=== PATIENT | female | born 1980 | race Caucasian/White ===

== ENCOUNTER → 2016-08-10 | Outpatient (CLI) | payer MEDICAID ==
[2016-08-10 09:02] LABS: CHLORIDE,CL 105 mmol/L (98-110); SODIUM,NA 140 mmol/L (136-146)
== END ==
LOC: MW.CHIM 08:11
PROVIDERS: ATTEND Internal Medicine
DX: E11.9 Type 2 diabetes mellitus without complications (principal); E03.9 Hypothyroidism, unspecified; E78.5 Hyperlipidemia, unspecified
CPT/HCPCS: 36415; 80053; 83036; 84439; 84443

== ENCOUNTER 2016-09-06 10:59 | Emergency (ER) | payer MEDICAID ==
[2016-09-06 11:23] VITALS: BP 142/94
[2016-09-06] MEDS ORDERED: Sodium Chloride 0.9% 10 ML Syringe FLUSH PRN (11:25)
[2016-09-06] MEDS ORDERED: Sodium Chloride 0.9% 2.5 ML Syringe FLUSH PRN (11:25)
[2016-09-06] MEDS ORDERED: Sodium Chloride 0.9% 1,000 ML IV ONE (11:25)
[2016-09-06 12:15] LABS: CHLORIDE,CL 106 mmol/L (98-110); SODIUM,NA 142 mmol/L (136-146)
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
== END 2016-09-06 14:29 | disposition home or self-care (01) ==
LOC: MW.ED 10:59
DX: R40.4 Transient alteration of awareness (principal); J44.9 Chronic obstructive pulmonary disease, unspecified; E78.00 Pure hypercholesterolemia, unspecified; J45.909 Unspecified asthma, uncomplicated; Z79.899 Other long term (current) drug therapy
CPT/HCPCS: 36415; 80053; 80305; 81001; 81025; 82962; 84484; 85025; 93005; 96360; 99284; G0480; J7040

== ENCOUNTER 2016-10-27 06:01 | Emergency (ER) | payer MEDICAID ==
[2016-10-27] MEDS ORDERED: Sodium Chloride 0.9% 1,000 ML IV ONE (06:16)
--- NOTE | 2016-10-27 06:16 | EDM.PDOC ---
<Laz Cooney J - Last Filed: 10/27/16 06:12> ED HPI GENERAL MEDICAL PROBLEM - General Chief Complaint: Abdominal Pain Stated Complaint: ABDOMINAL PAIN AND LEG PAIN Time Seen by Provider: 10/27/16 06:07 - History of Present Illness INITIAL COMMENTS - FREE TEXT/NARRATIVE: HISTORY AND PHYSICAL: History of present illness: Patient is a 35-year-old female history of diabetes ,depression, and COPD who presents with a concern of left upper quadrant abdominal pain left anterior thigh pain 1 day she states she was drinking yesterday quite significantly she denies trauma denies fever chills vomiting she has mild chronic shortness of breath chronically related to her COPD denies history of DVT or pulmonary embolism patient denies history of pancreatitis or gallbladder disease Review of systems: As per history of present illness and below otherwise all systems reviewed and negative. Past medical history: As per history of present illness and as reviewed below otherwise noncontributory. Surgical history: As per history of present illness and as reviewed below otherwise noncontributory. Social history: No reported history of drug or alcohol abuse. Family history: As per history of present illness and as reviewed below otherwise noncontributory. Physical exam: HEENT: Atraumatic, normocephalic, pupils reactive, negative for conjunctival pallor or scleral icterus, mucous membranes moist, throat clear, neck supple, nontender, trachea midline. Lungs: Clear to auscultation, breath sounds equal bilaterally, chest nontender. Heart: S1S2, regular, negative for clicks, rubs, or JVD. Abdomen: Soft, nondistended, no localized tenderness. Negative for masses or hepatosplenomegaly. Negative for costovertebral tenderness. Pelvis: Stable nontender. Genitourinary: Deferred. Rectal: Deferred. Extremities: Atraumatic, negative for cords or calf pain. Neurovascular unremarkable. Neuro: Awake, alert, oriented. Cranial nerves II through XII unremarkable. Cerebellum unremarkable. Motor and sensory unremarkable throughout. Exam nonfocal. Diagnostics: CBC CMP PT/INR troponin lipase UA chest x-ray EKG x-ray left femur Therapeutics: IV O2 monitor Impression: #1 abdominal pain #2 COPD #3 history diabetes #4 history of depression Definitive disposition and diagnosis as appropriate pending reevaluation and review of above. Left Upper Abdomen Pain Score (Numeric/FACES): 5 - Related Data Allergies Allergy/AdvReac Type Severity Reaction Status Date / Time piperacillin sodium AdvReac Nausea and Verified 10/27/16 06:07 [From Zosyn] Vomiting tazobactam sodium AdvReac Nausea and Verified 10/27/16 06:07 [From Zosyn] Vomiting Home Meds: Home Meds Albuterol [Proair HFA] 2 puff INH Q4HR PRN 10/30/13 [History] Enalapril Maleate [Vasotec] 5 mg PO DAILY 10/30/13 [History] Furosemide [Lasix] 20 mg PO DAILY 10/30/13 [History] Gabapentin [Neurontin] 300 mg PO BID 10/30/13 [History] atorvaSTATin [Lipitor] 10 mg PO BEDTIME 10/30/13 [History] Tiotropium Frederick [Spiriva Respimat] 2 inh IH BID 01/23/15 [History] metFORMIN [Glucophage] 1,000 mg PO BIDMEALS 03/01/15 [History] Citalopram [Celexa] 60 mg PO DAILY 10/13/15 [History] Levothyroxine Sodium [Synthroid] 200 mcg PO ACBREAKFAST 10/14/15 [History] Fenofibrate 40 mg PO DAILY 05/12/16 [History] Potassium Chloride 10 meq PO DAILY 05/12/16 [History] Omeprazole 20 mg PO DAILY 09/06/16 [History] Past Medical History HEENT History: Reports: None Cardiovascular History: Reports: High Cholesterol Respiratory History: Reports: Asthma, COPD, Pneumonia, Recurrent, Sleep Apnea, Other (See Below) Other Respiratory History: uses CPAP at home Gastrointestinal History: Reports: GERD Genitourinary History: Reports: None, UTI, Recurrent [employer] History: Reports: None Musculoskeletal History: Reports: Arthritis Neurological History: Reports: None Psychiatric History: Reports: Anxiety, Depression, Suicide Attempt Other Psychiatric History: in [place] for previous suicidal attempt 2 yrs ago Endocrine/Metabolic History: Reports: Diabetes, Type II, Hypothyroidism, Obesity /BMI 30+ Hematologic History: Reports: None Immunologic History: Reports: None Oncologic (Cancer) History: Reports: None Dermatologic History: Reports: Cellulitis, Other (See Below) Other Dermatologic History: skin abcess/infections - Infectious Disease History Infectious Disease History: Reports: Chicken Pox, Shingles - Past Surgical History Head Surgeries/Procedures: Reports: None HEENT Surgical History: Reports: Adenoidectomy, Tonsillectomy GI Surgical History: Reports: Cholecystectomy Musculoskeletal Surgical History: Reports: None Social & Family History - Family History Family Medical History: Noncontributory Cardiac: Reports: High Cholesterol, Other (See Below) Other Cardiac Family History: heart attack Respiratory: Reports: Asthma, COPD GI: Reports: None : Reports: None OBGYN: Reports: Musculoskeletal: Reports: Arthritis Neurological: Reports: Alzheimers Disease, CVA Psychiatric: Reports: Anxiety, Depression, Panic Attack Endocrine/Metabolic: Reports: Diabetes, Type I, Diabetes, type II Oncologic: Reports: Pancreatic - Tobacco Use Smoking Status *Q: Current Every Day Smoker Years of Tobacco use: 23 Packs/Tins Daily: 1 Used Tobacco, but Quit: No Second Hand Smoke Exposure: No - Caffeine Use Caffeine Use: Reports: Tea - Alcohol Use Days Per Week of Alcohol Use: 0 Number of Drinks Per Day: 10 Total Drinks Per Week: 0 - Recreational Drug Use Recreational Drug Use: Yes Drug Use in Last 12 Months: No Recreational Drug Type: Reports: Other (see below) Other Recreational Drug Type: edible marijuana Recreational Drug Use Frequency: Socially ED ROS GENERAL - Review of Systems Review Of Systems: ROS reveals no pertinent complaints other than HPI. ED EXAM, GENERAL - Physical Exam Exam: See Below (See dictation) Course - Vital Signs Last Recorded V/S: Last Vital Signs Temp 35.7 C 10/27/16 06:07 Pulse 95 10/27/16 06:07 Resp 18 10/27/16 06:07 BP 147/78 H 10/27/16 06:07 Pulse Ox 95 10/27/16 06:07 - Orders/Labs/Meds Orders: Active Orders 24 hr Category Date Time Status EKG Documentation Completion [RC] STAT Care 10/27/16 06:12 Active Abdomen Pelvis wo Cont [CT] Stat Exams 10/27/16 06:16 Taken Chest 1V Frontal [CR] Stat Exams 10/27/16 06:12 Taken Femur Min 2V Lt [CR] Stat Exams 10/27/16 06:12 Taken Labs: Laboratory Tests 10/27/16 10/27/16 10/27/16 Range/Units 06:31 06:31 06:31 WBC 9.38 (4.0-11.0) K/uL RBC 4.41 (4.30-5.90) M/uL Hgb 12.9 (12.0-16.0) g/dL Hct 39.2 (36.0-46.0) % MCV 88.9 (80.0-98.0) fL MCH 29.3 (27.0-32.0) pg MCHC 32.9 (31.0-37.0) g/dL RDW Std Deviation 44.6 (28.0-62.0) fl RDW Coeff of [place] 14 (11.0-15.0) % Plt Count 171 (150-400) K/uL MPV 13.00 H (7.40-12.00) fL Neut % (Auto) 64.2 (48.0-80.0) % Lymph % (Auto) 26.8 (16.0-40.0) % Waldo % (Auto) 6.7 (0.0-15.0) % Eos % (Auto) 2.0 (0.0-7.0) % Baso % (Auto) 0.3 (0.0-1.5) % Neut # (Auto) 6.0 H (1.4-5.7) K/uL Lymph # (Auto) 2.5 H (0.6-2.4) K/uL Waldo # (Auto) 0.6 (0.0-0.8) K/uL Eos # (Auto) 0.2 (0.0-0.7) K/uL Baso # (Auto) 0.0 (0.0-0.1) K/uL Nucleated RBC % 0.0 /100WBC Nucleated RBCs # 0 K/uL Sodium 138 (136-146) mmol/L Potassium 4.5 (3.5-5.1) mmol/L Chloride 106 (98-110) mmol/L Carbon Dioxide 21 (21-31) mmol/L BUN 9 (6.0-23.0) mg/dL Creatinine 0.9 (0.6-1.5) mg/dL Est Cr Clr Drug Dosing 62.67 mL/min Estimated GFR (MDRD) > 60.0 ml/min Glucose 198 H (60-110) mg/dL Calcium 8.9 (8.8-10.8) mg/dL Total Bilirubin 0.4 (0.1-1.5) mg/dL AST 26 (5-40) IU/L ALT 34 (8-54) IU/L Alkaline Phosphatase 53 (40-150) CK-MB (CK-2) 0.9 (0-6.6) ng/ml Troponin I < 0.10 (0.0-0.29) NG/ML Total Protein 7.0 (6.0-8.0) g/dL Albumin 4.2 (3.5-5.0) g/dL Globulin 2.8 (2.0-3.5) g/dL Albumin/Globulin Ratio 1.5 (1.3-2.8) Lipase 53 (7-80) U/L HCG, Qual (NEG) Urine Color Urine Appearance Urine pH (5.0-8.0) Ur Specific [place] (1.001-1.035) Urine Protein (NEGATIVE) mg/dL Urine Glucose (UA) (NEGATIVE) mg/dL Urine Ketones (NEGATIVE) mg/dL Urine Occult Blood (NEGATIVE) Urine Nitrite (NEGATIVE) Urine Bilirubin (NEGATIVE) Urine Urobilinogen (<2.0) EU/dL Ur Leukocyte Esterase (NEGATIVE) Urine RBC (0-2/HPF) Urine WBC (0-5/HPF) Ur Epithelial Cells (NONE-FEW) Urine Bacteria (NEGATIVE) Urine Yeast 10/27/16 10/27/16 Range/Units 06:31 07:46 WBC (4.0-11.0) K/uL RBC (4.30-5.90) M/uL Hgb (12.0-16.0) g/dL Hct (36.0-46.0) % MCV (80.0-98.0) fL MCH (27.0-32.0) pg MCHC (31.0-37.0) g/dL RDW Std Deviation (28.0-62.0) fl RDW Coeff of [place] (11.0-15.0) % Plt Count (150-400) K/uL MPV (7.40-12.00) fL Neut % (Auto) (48.0-80.0) % Lymph % (Auto) (16.0-40.0) % Waldo % (Auto) (0.0-15.0) % Eos % (Auto) (0.0-7.0) % Baso % (Auto) (0.0-1.5) % Neut # (Auto) (1.4-5.7) K/uL Lymph # (Auto) (0.6-2.4) K/uL Wal[place] # (Auto) (0.0-0.8) K/uL Eos # (Auto) (0.0-0.7) K/uL Baso # (Auto) (0.0-0.1) K/uL Nucleated RBC % /100WBC Nucleated RBCs # K/uL Sodium (136-146) mmol/L Potassium (3.5-5.1) mmol/L Chloride (98-110) mmol/L Carbon Dioxide (21-31) mmol/L BUN (6.0-23.0) mg/dL Creatinine (0.6-1.5) mg/dL Est Cr Clr Drug Dosing mL/min Estimated GFR (MDRD) ml/min Glucose (60-110) mg/dL Calcium (8.8-10.8) mg/dL Total Bilirubin (0.1-1.5) mg/dL AST (5-40) IU/L ALT (8-54) IU/L Alkaline Phosphatase (40-150) CK-MB (CK-2) (0-6.6) ng/ml Troponin I (0.0-0.29) NG/ML Total Protein (6.0-8.0) g/dL Albumin (3.5-5.0) g/dL Globulin (2.0-3.5) g/dL Albumin/Globulin Ratio (1.3-2.8) Lipase (7-80) U/L HCG, Qual NEGATIVE (NEG) Urine Color YELLOW Urine Appearance CLEAR Urine pH 5.0 (5.0-8.0) Ur Specific [place] 1.015 (1.001-1.035) Urine Protein NEGATIVE (NEGATIVE) mg/dL Urine Glucose (UA) >=1000 (NEGATIVE) mg/dL Urine Ketones NEGATIVE (NEGATIVE) mg/dL Urine Occult Blood NEGATIVE (NEGATIVE) Urine Nitrite NEGATIVE (NEGATIVE) Urine Bilirubin NEGATIVE (NEGATIVE) Urine Urobilinogen 0.2 (<2.0) EU/dL Ur Leukocyte Esterase NEGATIVE (NEGATIVE) Urine RBC NONE SEEN (0-2/HPF) Urine WBC 2-4 (0-5/HPF) Ur Epithelial Cells MODERATE (NONE-FEW) Urine Bacteria FEW (NEGATIVE) Urine Yeast MODERATE Meds: Medications Discontinued Medications Generic Name Dose Route Start Last Admin Trade Name Ingrid PRN Reason Stop Dose Admin Sodium Chloride 1,000 mls @ 999 mls/hr 10/27/16 06:16 10/27/16 06:23 Normal Saline IV 10/27/16 07:16 999 mls/hr STAT ONE Administration Departure - Departure Disposition: Home, Self-Care 01 Clinical Impression: Alcoholic gastritis Qualifiers: Chronicity: chronic Gastritis bleeding: without bleeding Qualified Code(s): K29.20 - Alcoholic gastritis without bleeding - Discharge Information Forms: ED Department Discharge Additional Instructions: The following information is given to patients seen in the emergency department who are being discharged to home. This information is to outline your options for follow-up care. We provide all patients seen in our emergency department with a follow-up referral. The need for follow-up, as well as the timing and circumstances, are variable depending upon the specifics of your emergency department visit. If you don't have a primary care physician on staff, we will provide you with a referral. We always advise you to contact your personal physician following an emergency department visit to inform them of the circumstance of the visit and for follow-up with them and/or the need for any referrals to a consulting specialist. The emergency department will also refer you to a specialist when appropriate. This referral assures that you have the opportunity for follow-up care with a specialist. All of these measure are taken in an effort to provide you with optimal care, which includes your follow-up. Under all circumstances we always encourage you to contact your private physician who remains a resource for coordinating your care. When calling for follow-up care, please make the office aware that this follow-up is from your recent emergency room visit. If for any reason you are refused follow-up, please contact the [facility] Emergency Department at and asked to speak to the emergency department charge nurse. Stop drinking alcohol. Take Prilosec twice a day. Followup with your primary care physician. [facility] [address] [place] [id number] <Leila Kwon - Last Filed: 10/27/16 08:17> ED HPI GENERAL MEDICAL PROBLEM - History of Present Illness INITIAL COMMENTS - FREE TEXT/NARRATIVE: This patient was signed out to me by Dr. Cooney from the assembler 1st shift. Patient's abdominal CT, chest x-ray and left extremity x-ray are all negative. Patient's urine shows moderate yeast, however she is asymptomatic. Patient states she drinks heavily in the evening and her pain is in her epigastrium and lower pelvis. She has a chronic left ovarian cyst that appears to be unchanged without signs of rupture on CT. This may be the cause of her lower abdominal pain. Patient is to continue take Prilosec twice a day. I strongly urged her to stop drinking alcohol. Patient to followup with her primary care physician or to return here if symptoms change or worsen. She remained stable while in the ED. Departure - Departure Time of Disposition: 08:12 Condition: good
[2016-10-27 07:05] LABS: CHLORIDE,CL 106 mmol/L (98-110); SODIUM,NA 138 mmol/L (136-146)
[2016-10-27 08:34] VITALS: BP 121/56
--- NOTE | 2016-10-27 10:51 | CR ---
EXAM DATE: 10/27/16 PATIENT'S AGE: 35 Patient: DOMONIQUE ELIZABETH Facility: [place], [place] Site . Site : 1980 Study: XRay Chest [id number]/7/2017 7:30:33 AM Ordering Physician: Eros Nesbitt Final Report: INDICATION: Pain COMPARISON: none TECHNIQUE: PA chest performed at 7:11 a.m. FINDINGS: The lungs are clear. There is no evidence of pneumothorax. The heart, mediastinum and pulmonary vessels are of normal size. There is no evidence of pleural fluid. IMPRESSION: Negative chest. Dictated by Laz Crews MD @ Oct 27 2016 7:33AM (Electronic Signature) Report Signed by Proxy. MARIAN
--- NOTE | 2016-10-27 10:51 | CT ---
EXAM DATE: 10/27/16 PATIENT'S AGE: 35 Patient: DOMONIQUE ELIZABETH Facility: [place], [place] Site . Site : 1980 Study: CT Abdomen/Pelvis [id number]/7/2017 7:17:31 AM Ordering Physician: Eros Nesbitt Final Report: Indication: Right-sided abdominal pain. Technique: A CT volumetric acquisition was performed of the abdomen and pelvis without IV contrast. Findings: CT images demonstrate a normal appearance of the lung bases. There is no evidence of pleural or pericardial fluid. Within the abdomen there is generalized hepatic steatosis. Gallbladder has been resected. The bile ducts are normal size. There is no evidence of mass effect or inflammation within the pancreas or stomach. The spleen appears normal. The adrenal glands have normal morphology. The kidneys are symmetric in size and there is no evidence a calculus, mass or hydronephrosis. The appendix is visualized in the lower right abdomen and appears normal. There is no evidence of inflammation or obstruction within the small intestine. The small bowel mesentery and greater omentum appear normal. No abnormalities are noted within the colon. The uterus and right ovary appear normal. The left ovary is enlarged and has decreased density. It measures approximately 5.4 x 4.9 cm in size. There is no evidence of free fluid in the cul de sac. Urinary bladder appears normal. Impression: 1. Cystic enlargement of the left ovary. This could be investigated further with a focused ultrasound. 2. No evidence of appendicitis. 3. Generalized hepatic steatosis. Please note that all CT scans at this facility use dose modulation, iterative reconstruction, and/or weight-based dosing when appropriate to reduce radiation dose to as low as reasonably achievable. Dictated by Laz Crews MD @ Oct 27 2016 7:20AM (Electronic Signature) Report Signed by Proxy. [facility]ITAL[facility]
--- NOTE | 2016-10-27 10:52 | CR ---
EXAM DATE: 10/27/16 PATIENT'S AGE: 35 Patient: DOMONIQUE ELIZABETH Facility: [place], [place] Site . Site : 1980 Study: XRay Extremity Left [id number]/7/[id number] 7:31:33 AM Ordering Physician: Eros Nesbitt Final Report: INDICATION: Acute swelling of distal left femur COMPARISON: none TECHNIQUE: Two-view left femur FINDINGS: The left hip and knee are anatomically aligned. There is no evidence of femoral fracture, erosion or intrinsic bone lesion. The soft tissues appear normal. IMPRESSION: Negative left femur. Dictated by Laz Crews MD @ Oct 27 2016 7:34AM (Electronic Signature) Report Signed by Proxy. MARIAN
== END 2016-10-27 08:32 | disposition home or self-care (01) ==
LOC: MW.ED 06:01
DX: K29.20 Alcoholic gastritis without bleeding (principal); F17.210 Nicotine dependence, cigarettes, uncomplicated; E78.00 Pure hypercholesterolemia, unspecified; J45.909 Unspecified asthma, uncomplicated; J44.9 Chronic obstructive pulmonary disease, unspecified; G47.30 Sleep apnea, unspecified; K21.9 Gastro-esophageal reflux disease without esophagitis; F41.9 Anxiety disorder, unspecified; F32.9 Major depressive disorder, single episode, unspecified; E11.9 Type 2 diabetes mellitus without complications; E03.9 Hypothyroidism, unspecified; E66.9 Obesity, unspecified; Z98.890 Other specified postprocedural states; Z90.49 Acquired absence of other specified parts of digestive tract; Z79.899 Other long term (current) drug therapy; Z79.84 Long term (current) use of oral hypoglycemic drugs; Z88.8 Allergy status to other drugs, medicaments and biological substances
CPT/HCPCS: 36415; 71010; 73552; 74176; 80053; 81001; 82553; 83690; 84484; 84703; 85025; 93005; 96360; 96361; 99284; J7040

== ENCOUNTER 2016-12-31 01:52 | Emergency (ER) | payer MEDICAID ==
[2016-12-31] MEDS ORDERED: Ondansetron 4 MG Tab.DIS PO ONE (02:25)
--- NOTE | 2016-12-31 02:31 | EDM.PDOC ---
ED HPI GENERAL MEDICAL PROBLEM - General Chief Complaint: Behavioral/Psych Stated Complaint: VOMITING Time Seen by Provider: 12/31/16 02:15 - History of Present Illness INITIAL COMMENTS - FREE TEXT/NARRATIVE: HISTORY AND PHYSICAL: History of present illness: The patient is a 36 rolled female with a history of hypertension depression hypercholesterolemia and diabetes as well as morbid obesity who has had multiple problems with depression and suicidal ideation and presents with her friend, who used to be her counselor, as well as police because at approximately 1:03 AM she took 10-15 tablets of her enalapril 5 mg. Patient says she was angry and sad and she had had a significant amount of alcohol this evening and took the pills and then text at her friend. Her friend contacted the police and the 2 of them brought her here. The patient currently feels nauseated but has no chest pain lightheadedness or dizziness no abdominal pain or shortness of breath. Prior to the events of this evening she had no systemic complaints but she has been battling depression for quite some time. The friend who knows her from counseling initially and then became her friend thinks that she also has a history of alcoholism as well as the significant depression. The patient tries to tell me that she doesn't want to but when I question her on taking all of the blood pressure medication she realizes and becomes tearful that this gesture was intentional and subsequently admits to that. She denies any other coingestions and is on other medications declines that she took any of those. She also denies drug use. The patient also tells me that she has "left -sided upper abdominal pain" which is chronic and she has a ready discussed that with her provider in the clinic. SHe says there is nothing new or different about this discomfort is occurring this evening Review of systems: As per history of present illness and below otherwise all systems reviewed and negative. Past medical history: As per history of present illness and as reviewed below otherwise noncontributory. Surgical history: As per history of present illness and as reviewed below otherwise noncontributory. Social history: No reported history of drug or alcohol abuse. Family history: As per history of present illness and as reviewed below otherwise noncontributory. Physical exam: Gen.: Well-developed obese female who is nontoxic and intermittently tearful when questioned. Vital signs are noted by me HEENT: Atraumatic, normocephalic, pupils reactive, clear are slightly injected, negative for conjunctival pallor or scleral icterus, mucous membranes moist, throat clear, neck supple, nontender, trachea midline. Lungs: Clear to auscultation, breath sounds equal bilaterally, chest nontender. Heart: S1S2, regular rate and rhythm no overt murmurs Abdomen: Soft, nondistended, nontender. Negative for masses or hepatosplenomegaly. Negative for costovertebral tenderness. Pelvis: Stable nontender. Genitourinary: Deferred. Rectal: Deferred. Extremities: Atraumatic, negative for cords or calf pain. Neurovascular unremarkable. Full range of motion without any defects or deficits Neuro: Awake, alert, oriented. Cranial nerves II through XII unremarkable. Cerebellum unremarkable. Motor and sensory unremarkable throughout. Exam nonfocal. Diagnostics: EKG CBC CMP Tylenol and aspirin levels alcohol level TSH UA UDS UCG magnesium level Therapeutics: Blood pressure monitoring, Zofran for her nausea 0212: Poison control was contacted by nursing and states that she needs to be observed for hypotension and that the peak effect is a proximally 4 hours postingestion which according to her timing would be approximately 5 AM. 0318: Case was discussed with Dr. Manzano, the psychiatrist at [facility] who accept the patient for transfer. There were no beds available at [facility]. He is aware of poison control's recommendations and I have discussed this transfer with the patient and her friend at bedside. I told the patient that we would need to place a saline lock in case something happened with her blood pressure in route so the paramedics could give her IV fluids and she is agreeable. I will also instruct the paramedics to monitor her blood pressure closely in route especially around the 5 am swati. On KARLA has been filled out Impression: Suicide attempt with intentional overdose of enalapril Definitive disposition and diagnosis as appropriate pending reevaluation and review of above. - Related Data Allergies Allergy/AdvReac Type Severity Reaction Status Date / Time piperacillin sodium AdvReac Nausea and Verified 12/31/16 01:57 [From Zosyn] Vomiting tazobactam sodium AdvReac Nausea and Verified 12/31/16 01:57 [From Zosyn] Vomiting Home Meds: Home Meds Albuterol [Proair HFA] 2 puff INH Q4HR PRN 10/30/13 [History] Enalapril Maleate [Vasotec] 5 mg PO DAILY 10/30/13 [History] Furosemide [Lasix] 20 mg PO DAILY 10/30/13 [History] Gabapentin [Neurontin] 300 mg PO ASDIRECTED 10/30/13 [History] atorvaSTATin [Lipitor] 10 mg PO BEDTIME 10/30/13 [History] Tiotropium [place] [Spiriva Respimat] 2 inh IH BID 01/23/15 [History] metFORMIN [Glucophage] 1,000 mg PO BIDMEALS 03/01/15 [History] Citalopram [Celexa] 60 mg PO DAILY 10/13/15 [History] Levothyroxine Sodium [Synthroid] 200 mcg PO ACBREAKFAST 10/14/15 [History] Fenofibrate 40 mg PO DAILY 05/12/16 [History] Potassium Chloride 10 meq PO DAILY 05/12/16 [History] Omeprazole 20 mg PO DAILY 09/06/16 [History] Glimepiride 1 mg PO ASDIRECTED 12/31/16 [History] Past Medical History HEENT History: Reports: None Cardiovascular History: Reports: High Cholesterol Respiratory History: Reports: Asthma, COPD, Pneumonia, Recurrent, Sleep Apnea, Other (See Below) Other Respiratory History: uses CPAP at home Gastrointestinal History: Reports: GERD Genitourinary History: Reports: None, UTI, Recurrent 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 Musculoskeletal History: Reports: Arthritis Neurological History: Reports: None Psychiatric History: Reports: Anxiety, Depression, Suicide Attempt Other Psychiatric History: in [place] for previous suicidal attempt 2 yrs ago Endocrine/Metabolic History: Reports: Diabetes, Type II, Hypothyroidism, Obesity /BMI 30+ Hematologic History: Reports: None Immunologic History: Reports: None Oncologic (Cancer) History: Reports: None Dermatologic History: Reports: Cellulitis, Other (See Below) Other Dermatologic History: skin abcess/infections - Infectious Disease History Infectious Disease History: Reports: Chicken Pox, Shingles - Past Surgical History Head Surgeries/Procedures: Reports: None HEENT Surgical History: Reports: Adenoidectomy, Tonsillectomy GI Surgical History: Reports: Cholecystectomy Musculoskeletal Surgical History: Reports: None Social & Family History - Family History Family Medical History: Noncontributory Cardiac: Reports: High Cholesterol, Other (See Below) Other Cardiac Family History: heart attack Respiratory: Reports: Asthma, COPD GI: Reports: None : Reports: None OBGYN: Reports: Musculoskeletal: Reports: Arthritis Neurological: Reports: Alzheimers Disease, CVA Psychiatric: Reports: Anxiety, Depression, Panic Attack Endocrine/Metabolic: Reports: Diabetes, Type I, Diabetes, type II Oncologic: Reports: Pancreatic - Tobacco Use Smoking Status *Q: Current Every Day Smoker Years of Tobacco use: 23 Packs/Tins Daily: 1 Used Tobacco, but Quit: No Second Hand Smoke Exposure: No - Caffeine Use Caffeine Use: Reports: Tea - Alcohol Use Days Per Week of Alcohol Use: 0 Number of Drinks Per Day: 10 Total Drinks Per Week: 0 - Recreational Drug Use Recreational Drug Use: Yes Drug Use in Last 12 Months: No Recreational Drug Type: Reports: Other (see below) Other Recreational Drug Type: edible marijuana Recreational Drug Use Frequency: Socially ED ROS GENERAL - Review of Systems Review Of Systems: ROS reveals no pertinent complaints other than HPI. ED EXAM, GENERAL - Physical Exam Exam: See Below (See dictation) Course - Vital Signs Last Recorded V/S: Last Vital Signs Temp 36.6 C 12/31/16 01:52 Pulse 121 H 12/31/16 01:52 Resp 20 12/31/16 01:52 BP 130/76 12/31/16 01:52 Pulse Ox 95 12/31/16 03:12 - Orders/Labs/Meds Orders: Active Orders 24 hr Category Date Time Status Cardiac Monitoring [RC] . DIRECTED Care 12/31/16 02:24 Active EKG Documentation Completion [RC] STAT Care 12/31/16 02:24 Active Oxygen Therapy, ED [RC] ASDIRECTED Care 12/31/16 02:24 Active Pulse Oximetry [RC] ASDIRECTED Care 12/31/16 02:24 Active Labs: Laboratory Tests 12/31/16 12/31/16 12/31/16 Range/Units 02:30 02:30 02:30 WBC (4.0-11.0) K/uL RBC (4.30-5.90) M/uL Hgb (12.0-16.0) g/dL Hct (36.0-46.0) % MCV (80.0-98.0) fL MCH (27.0-32.0) pg MCHC (31.0-37.0) g/dL RDW Std Deviation (28.0-62.0) fl RDW Coeff of [place] (11.0-15.0) % Plt Count (150-400) K/uL MPV (7.40-12.00) fL Neut % (Auto) (48.0-80.0) % Lymph % (Auto) (16.0-40.0) % [place] % (Auto) (0.0-15.0) % Eos % (Auto) (0.0-7.0) % Baso % (Auto) (0.0-1.5) % Neut # (Auto) (1.4-5.7) K/uL Lymph # (Auto) (0.6-2.4) K/uL [place] # (Auto) (0.0-0.8) K/uL Eos # (Auto) (0.0-0.7) K/uL Baso # (Auto) (0.0-0.1) K/uL Nucleated RBC % /100WBC Nucleated RBCs # K/uL Sodium (136-146) mmol/L Potassium (3.5-5.1) mmol/L Chloride (98-110) mmol/L Carbon Dioxide (21-31) mmol/L BUN (6.0-23.0) mg/dL Creatinine (0.6-1.5) mg/dL Est Cr Clr Drug Dosing mL/min Estimated GFR (MDRD) ml/min Glucose (60-110) mg/dL Calcium (8.8-10.8) mg/dL Magnesium (1.5-2.3) mEq/L Total Bilirubin (0.1-1.5) mg/dL AST (5-40) IU/L ALT (8-54) IU/L Alkaline Phosphatase (40-150) Total Protein (6.0-8.0) g/dL Albumin (3.5-5.0) g/dL Globulin (2.0-3.5) g/dL Albumin/Globulin Ratio (1.3-2.8) TSH 3rd Generation (0.47-5.0) uIU/mL Urine Color YELLOW Urine Appearance CLEAR Urine pH 5.5 (5.0-8.0) Ur Specific [place] 1.010 (1.001-1.035) Urine Protein NEGATIVE (NEGATIVE) mg/dL Urine Glucose (UA) >=1000 (NEGATIVE) mg/dL Urine Ketones NEGATIVE (NEGATIVE) mg/dL Urine Occult Blood NEGATIVE (NEGATIVE) Urine Nitrite NEGATIVE (NEGATIVE) Urine Bilirubin NEGATIVE (NEGATIVE) Urine Urobilinogen 0.2 (<2.0) EU/dL Ur Leukocyte Esterase NEGATIVE (NEGATIVE) Urine RBC 0-1 (0-2/HPF) Urine WBC 0-2 (0-5/HPF) Ur Epithelial Cells FEW (NONE-FEW) Urine Bacteria RARE (NEGATIVE) Urine HCG, Qual NEGATIVE (NEGATIVE) Salicylates (0-20) mg/dL Urine Opiates Screen NEGATIVE (NEGATIVE) Ur Oxycodone Screen NEGATIVE (NEGATIVE) Urine Methadone Screen NEGATIVE (NEGATIVE) Acetaminophen ug/mL Ur Barbiturates Screen NEGATIVE (NEGATIVE) Ur Phencyclidine Scrn NEGATIVE (NEGATIVE) Ur Amphetamine Screen NEGATIVE (NEGATIVE) U Methamphetamines Scrn NEGATIVE (NEGATIVE) U Benzodiazepines Scrn NEGATIVE (NEGATIVE) U Cocaine Metab Screen NEGATIVE (NEGATIVE) U Marijuana (THC) Screen NEGATIVE (NEGATIVE) Ethyl Alcohol mg/dL 12/31/16 12/31/16 Range/Units 02:35 02:35 WBC 9.36 (4.0-11.0) K/uL RBC 4.61 (4.30-5.90) M/uL Hgb 13.3 (12.0-16.0) g/dL Hct 39.9 (36.0-46.0) % MCV 86.6 (80.0-98.0) fL MCH 28.9 (27.0-32.0) pg MCHC 33.3 (31.0-37.0) g/dL RDW Std Deviation 43.8 (28.0-62.0) fl RDW Coeff of [place] 14 (11.0-15.0) % Plt Count 172 (150-400) K/uL MPV 12.20 H (7.40-12.00) fL Neut % (Auto) 70.6 (48.0-80.0) % Lymph % (Auto) 23.2 (16.0-40.0) % [place] % (Auto) 5.0 (0.0-15.0) % Eos % (Auto) 1.0 (0.0-7.0) % Baso % (Auto) 0.2 (0.0-1.5) % Neut # (Auto) 6.6 H (1.4-5.7) K/uL Lymph # (Auto) 2.2 (0.6-2.4) K/uL [place] # (Auto) 0.5 (0.0-0.8) K/uL Eos # (Auto) 0.1 (0.0-0.7) K/uL Baso # (Auto) 0.0 (0.0-0.1) K/uL Nucleated RBC % 0.0 /100WBC Nucleated RBCs # 0 K/uL Sodium 141 (136-146) mmol/L Potassium 3.8 (3.5-5.1) mmol/L Chloride 106 (98-110) mmol/L Carbon Dioxide 19 L (21-31) mmol/L BUN 7 (6.0-23.0) mg/dL Creatinine 0.9 (0.6-1.5) mg/dL Est Cr Clr Drug Dosing 62.07 mL/min Estimated GFR (MDRD) > 60.0 ml/min Glucose 183 H (60-110) mg/dL Calcium 9.6 (8.8-10.8) mg/dL Magnesium 1.9 (1.5-2.3) mEq/L Total Bilirubin 0.3 (0.1-1.5) mg/dL AST 77 H (5-40) IU/L ALT 130 H (8-54) IU/L Alkaline Phosphatase 78 (40-150) Total Protein 7.8 (6.0-8.0) g/dL Albumin 4.5 (3.5-5.0) g/dL Globulin 3.3 (2.0-3.5) g/dL Albumin/Globulin Ratio 1.4 (1.3-2.8) TSH 3rd Generation 3.20 (0.47-5.0) uIU/mL Urine Color Urine Appearance Urine pH (5.0-8.0) Ur Specific [place] (1.001-1.035) Urine Protein (NEGATIVE) mg/dL Urine Glucose (UA) (NEGATIVE) mg/dL Urine Ketones (NEGATIVE) mg/dL Urine Occult Blood (NEGATIVE) Urine Nitrite (NEGATIVE) Urine Bilirubin (NEGATIVE) Urine Urobilinogen (<2.0) EU/dL Ur Leukocyte Esterase (NEGATIVE) Urine RBC (0-2/HPF) Urine WBC (0-5/HPF) Ur Epithelial Cells (NONE-FEW) Urine Bacteria (NEGATIVE) Urine HCG, Qual (NEGATIVE) Salicylates < 5.0 (0-20) mg/dL Urine Opiates Screen (NEGATIVE) Ur Oxycodone Screen (NEGATIVE) Urine Methadone Screen (NEGATIVE) Acetaminophen < 3.0 ug/mL Ur Barbiturates Screen (NEGATIVE) Ur Phencyclidine Scrn (NEGATIVE) Ur Amphetamine Screen (NEGATIVE) U Methamphetamines Scrn (NEGATIVE) U Benzodiazepines Scrn (NEGATIVE) U Cocaine Metab Screen (NEGATIVE) U Marijuana (THC) Screen (NEGATIVE) Ethyl Alcohol 118.3 mg/dL Meds: Medications Discontinued Medications Generic Name Dose Route Start Last Admin Trade Name Freq PRN Reason Stop Dose Admin Ondansetron HCl 4 mg 12/31/16 02:25 12/31/16 02:34 Zofran Odt PO 12/31/16 02:26 4 mg ONETIME ONE Administration Departure - Departure Time of Disposition: 03:29 Disposition: DC/Tfer to Psych Hosp/Unit 65 Condition: Good Clinical Impression: Depressive disorder Overdose Qualifiers: Encounter type: initial encounter Injury intent: intentional self-harm Qualified Code(s): T50.902A - Poisoning by unspecified drugs, medicaments and biological substances, intentional self-harm, initial encounter - Discharge Information Forms: ED Department Discharge - My Orders Last 24 Hours: My Active Orders 12/31/16 02:24 Cardiac Monitoring [RC] . DIRECTED EKG Documentation Completion [RC] STAT Oxygen Therapy, ED [RC] ASDIRECTED Pulse Oximetry [RC] ASDIRECTED - Assessment/Plan Last 24 Hours: My Active Orders 12/31/16 02:24 Cardiac Monitoring [RC] . DIRECTED EKG Documentation Completion [RC] STAT Oxygen Therapy, ED [RC] ASDIRECTED Pulse Oximetry [RC] ASDIRECTED
[2016-12-31 03:04] LABS: CHLORIDE,CL 106 mmol/L (98-110); SODIUM,NA 141 mmol/L (136-146)
[2016-12-31 03:08] LABS: ACETAMINOPHEN < 3.0 ug/mL
[2016-12-31] MEDS ORDERED: Sodium Chloride 0.9% 2.5 ML Syringe FLUSH PRN (03:30)
[2016-12-31] MEDS ORDERED: Sodium Chloride 0.9% 10 ML Syringe FLUSH PRN (03:30)
[2016-12-31 04:48] VITALS: BP 140/72
== END 2016-12-31 04:10 ==
LOC: MW.ED 01:52
DX: T46.4X2A Poisoning by angiotensin-converting-enzyme inhibitors, intentional self-harm, initial encounter (principal); F32.9 Major depressive disorder, single episode, unspecified; I10 Essential (primary) hypertension; E78.00 Pure hypercholesterolemia, unspecified; E11.9 Type 2 diabetes mellitus without complications; E66.01 Morbid (severe) obesity due to excess calories; J45.909 Unspecified asthma, uncomplicated; J44.9 Chronic obstructive pulmonary disease, unspecified; F17.210 Nicotine dependence, cigarettes, uncomplicated; E03.9 Hypothyroidism, unspecified; Z98.890 Other specified postprocedural states; Z87.01 Personal history of pneumonia (recurrent); Z90.49 Acquired absence of other specified parts of digestive tract; Z88.8 Allergy status to other drugs, medicaments and biological substances; Z79.899 Other long term (current) drug therapy; Z79.84 Long term (current) use of oral hypoglycemic drugs; Z68.44 Body mass index [BMI] 60.0-69.9, adult
CPT/HCPCS: 36415; 80053; 81001; 81025; 83735; 84443; 85025; 93005; 99285; A9270; G0478; G0480; 80305; 99283

== ENCOUNTER 2017-01-18 08:06 | Day surgery (SDC) | payer MEDICAID ==
[~2017-01-18 08:06] MED LIST: Dexamethasone 4 MG/ML 5 ML MDV ONE; Lactated Ringers 1,000 ML IV SCH; Midazolam 1 MG/ML 2 ML SDV ONE; Neostigmine Methylsulfate 1 MG/ML 5 ML Syringe ONE; Ondansetron 4 MG/2 ML SDV ONE; Propofol 200 MG/20 ML SDV ONE; Rocuronium 10 MG/ML 10 ML Syringe ONE; Sodium Chloride 0.9% 10 ML Syringe FLUSH PRN; Sodium Chloride 0.9% 2.5 ML Syringe FLUSH PRN; Succinylcholine/Normal Saline 200 MG/10 ML Syringe ONE; fentaNYL 100 MCG/2 ML SDV ONE
[2017-01-18] MEDS ORDERED: ePHEDrine 50 MG/ML SDV ONE ×2 (08:30→10:59)
--- NOTE | 2017-01-18 08:39 | PCM.PREANE ---
Preanesthetic Assessment - Anesthesia/Transfusion/Family Hx Anesthesia History: Prior Anesthesia Without Reaction Family History of Anesthesia Reaction: No Transfusion History: No Prior Transfusion(s) Intubation History: Unknown - Review of Systems General: No Symptoms Pulmonary: No Symptoms Cardiovascular: No Symptoms Gastrointestinal: No Symptoms Neurological: No Symptoms Other: Reports: None - Physical Assessment Height: 1.5 m Weight: 139.253 kg ASA Class: 3 Mental Status: Alert & Oriented x3 Airway Class: Mallampati = 3 Dentition: Reports: Normal Dentition, Broken Tooth/Teeth (x1 upper front) Thyro-Mental Finger Breadths: 2 Mouth Opening Finger Breadths: 3 ROM/Head Extension: Full Lungs: Clear to Auscultation, Normal Respiratory Effort Cardiovascular: Regular Rate, Regular Rhythm - Lab Values: Laboratory Last Values Urine HCG, Qual NEGATIVE (NEGATIVE) 01/18/17 08:08 - Allergies Allergies/Adverse Reactions: Allergies Allergy/AdvReac Type Severity Reaction Status Date / Time piperacillin sodium AdvReac Nausea and Verified 12/31/16 01:57 [From Zosyn] Vomiting tazobactam sodium AdvReac Nausea and Verified 12/31/16 01:57 [From Zosyn] Vomiting - Blood Blood Available: No - Anesthesia Plan Pre-Op Medication Ordered: None - Acknowledgements Anesthesia Type Planned: General Anesthesia Pt an Appropriate Candidate for the Planned Anesthesia: Yes Alternatives and Risks of Anesthesia Discussed w Pt/Guardian: Yes Pt/Guardian Understands and Agrees with Anesthesia Plan: Yes PreAnesthesia Questionnaire HEENT History: Reports: None Cardiovascular History: Reports: High Cholesterol, Hypertension Respiratory History: Reports: Asthma, COPD, Pneumonia, Recurrent, Sleep Apnea, Other (See Below) Other Respiratory History: uses BiPAP at home Gastrointestinal History: Reports: GERD, Other (See Below) (h/o peptic ulcer) Genitourinary History: Reports: None 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) (ovarian cyst) Musculoskeletal History: Reports: Arthritis Neurological History: Reports: None Psychiatric History: Reports: Anxiety, Bipolar, Depression, Suicide Attempt Other Psychiatric History: mood disorder, borderline personality disorder Endocrine/Metabolic History: Reports: Diabetes, Type II, Hypothyroidism, Obesity /BMI 30+ (morbid obesity) Hematologic History: Reports: None Immunologic History: Reports: None Oncologic (Cancer) History: Reports: None Dermatologic History: Reports: Cellulitis, Other (See Below) Other Dermatologic History: skin abcess/infections - Infectious Disease History Infectious Disease History: Reports: Chicken Pox, Shingles - Past Surgical History Head Surgeries/Procedures: Reports: None HEENT Surgical History: Reports: Adenoidectomy, Tonsillectomy GI Surgical History: Reports: Cholecystectomy Musculoskeletal Surgical History: Reports: None - SUBSTANCE USE Smoking Status *Q: Current Every Day Smoker (1 ppd) Tobacco Use Within Last Twelve Months: Cigarettes Second Hand Smoke Exposure: No Days Per Week of Alcohol Use: 0 Number of Drinks Per Day: 10 Total Drinks Per Week: 0 Recreational Drug Use History: Yes Recreational Drug Type: Reports: Other (see below) - HOME MEDS Home Medications: Home Meds Albuterol [Proair HFA] 2 puff INH Q4HR PRN 10/30/13 [History] Enalapril Maleate [Vasotec] 5 mg PO BEDTIME 10/30/13 [History] Furosemide [Lasix] 20 mg PO DAILY 10/30/13 [History] Gabapentin [Neurontin] 300 mg PO BID 10/30/13 [History] atorvaSTATin [Lipitor] 10 mg PO BEDTIME 10/30/13 [History] Tiotropium [place] [Spiriva Respimat] 2 inh IH ASDIRECTED 01/23/15 [History] metFORMIN [Glucophage] 1,000 mg PO BIDMEALS 03/01/15 [History] Citalopram [Celexa] 60 mg PO BEDTIME 10/13/15 [History] Levothyroxine Sodium [Synthroid] 200 mcg PO ACBREAKFAST 10/14/15 [History] Fenofibrate 48 mg PO DAILY 05/12/16 [History] Potassium Chloride 10 meq PO DAILY 05/12/16 [History] Omeprazole 20 mg PO DAILY 09/06/16 [History] Glimepiride 1 mg PO DAILY 12/31/16 [History] Canagliflozin [Invokana] 100 mg PO DAILY 01/12/17 [History] - CURRENT (IN HOUSE) MEDS Current Meds: Current Medications Lactated Ringer's (Ringers, Lactated) 1,000 mls @ 125 mls/hr IV ASDIRECTED SHONDA Sodium Chloride (Saline Flush) 10 ml FLUSH ASDIRECTED PRN PRN Reason: Keep Vein Open Sodium Chloride (Saline Flush) 2.5 ml FLUSH ASDIRECTED PRN PRN Reason: Keep Vein Open Discontinued Medications Dexamethasone (Dexamethasone) Confirm Administered Dose 20 mg .ROUTE .STK-MED ONE Stop: 01/18/17 07:26 Ephedrine Sulfate (Ephedrine Sulfate) Confirm Administered Dose 50 mg .ROUTE .STK-MED ONE Stop: 01/18/17 08:31 Fentanyl (Sublimaze) Confirm Administered Dose 100 mcg .ROUTE .STK-MED ONE Stop: 01/18/17 07:25 Glycopyrrolate () Confirm Administered Dose 1 mg .ROUTE .STK-MED ONE Stop: 01/18/17 07:27 Lidocaine HCl (Xylocaine-Mpf 1%) Confirm Administered Dose 5 ml .ROUTE .STK-MED ONE Stop: 01/18/17 07:26 Midazolam HCl (Versed 1 Mg/Ml) Confirm Administered Dose 2 mg .ROUTE .STK-MED ONE Stop: 01/18/17 07:25 Neostigmine Methylsulfate (Neostigmine) Confirm Administered Dose 5 mg .ROUTE .STK-MED ONE Stop: 01/18/17 07:27 Ondansetron HCl (Zofran) Confirm Administered Dose 4 mg .ROUTE .STK-MED ONE Stop: 01/18/17 07:26 Propofol (Diprivan 20 Ml) Confirm Administered Dose 200 mg .ROUTE .STK-MED ONE Stop: 01/18/17 07:25 Rocuronium [place] (Zemuron) Confirm Administered Dose 100 mg .ROUTE .STK-MED ONE Stop: 01/18/17 07:27 Succinylcholine Chloride (Succinylcholine In Ns Pf) Confirm Administered Dose 200 mg .ROUTE .STK-MED ONE Stop: 01/18/17 07:27
[2017-01-18] MEDS ORDERED: Bupivacaine 0.25% 10 ML SDV ONE (09:27)
[2017-01-18] MEDS ORDERED: Lidocaine 1% with EPINEPHrine 1:100,000 20 ML MDV ONE (09:32)
[2017-01-18] MEDS ORDERED: fentaNYL 100 MCG/2 ML SDV ONE (11:14)
[2017-01-18] MEDS ORDERED: Propofol 200 MG/20 ML SDV ONE (11:16)
[2017-01-18] MEDS: fentaNYL 100 MCG/2 ML SDV IVPUSH PRN ×2 (12:13→12:19)
--- NOTE | 2017-01-18 12:19 | PCM.OPNOTE ---
- General Post-Op/Procedure Note Date of Surgery/Procedure: 01/18/17 Operative Procedure(s): 1) Operative laparoscopy with left salpingoophorectomy and pelvic washing. 2) Loop electrosurgical excision procedure Findings: Normal sized uterus, normal right ovary, enlarged left ovary with multiple cyst. Cervix grossly normal with no paracervical nodularity Pre Op Diagnosis: 1) Left ovarian cyst. 2) ANISHA 1 Post-Op Diagnosis: Same Anesthesia Technique: General ET Tube Primary Surgeon: [facility] Manager: Kristina Fallon Pathology: Left ovary and tube, Pelvic washing, Left Ovarian cyst aspirate, LEEP( cervix) and ECC EBL in mLs: 5 Complications: None Condition: Good
[2017-01-18] MEDS ORDERED: Acetaminophen/oxyCODONE 325-5 MG Tab PO ONE (13:08)
[2017-01-18 14:49] VITALS: BP 116/67
--- NOTE | 2017-01-19 03:08 | OR ---
SURGEON: Ghislaine Warren MD DATE OF PROCEDURE: 01/18/2017 NETTING INSPECTOR: MD Xander Westbrook, MS-4 PREOPERATIVE DIAGNOSES: 1.Pelvic pain 2. Left ovarian cyst. 3. Cervical dysplasia. POSTOPERATIVE DIAGNOSES: 1. Pelvic pain 2. Left ovarian cyst. 3. Cervical dysplasia. PROCEDURE: 1. Laparoscopic left salpingo-oophorectomy with pelvic washings. 2. Loop electrosurgical excision procedure, LEEP. ANESTHESIA: General endotracheal. ESTIMATED BLOOD LOSS: Minimal. COMPLICATIONS: None. FINDINGS: Six weeks anteverted mobile uterus. Normal-appearing tubes. Enlarged left ovary and normal right appearing ovary. Cervix was grossly normal in appearance with no palpable paracervical nodularity. DISPOSITION: Stable to recovery room. 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 Colposcopy directed biopsies were consistent with ANISHA-1, but given her long history of recurrent abnormal Pap smear, the patient opted to proceed with a LEEP procedure, especially given the fact that she could hardly tolerate the office colposcopy and did not want to have it repeated incase her Pap smears remained abnormal. She also has a history of a persistent left ovarian cysts and has been under surveillance for over a year with serial sonograms These cysts within the last 12 months have increased in size with characteristics consistent with a possible neoplastic process. There are at least 3 cysts,each measuring approximately 3.2 cm. Recently the patient symptomatic with pelvic pain. Management options were reviewed with her and she opted to proceed with laparoscopic cystectomy bearing in mind that she may have oophorectomy depending on intraoperative findings. The risks and benefits of these both procedures were explained in detail to the patient. All her questions were answered and an appropriate consent was obtained. DESCRIPTION OF PROCEDURE: The patient was taken to the operating room, where induction of general anesthesia was performed. After adequate level of general anesthesia, she was placed in dorsal lithotomy position. Examination under anesthesia was performed. The aforementioned findings were documented. The abdomen, perineum, and vagina were prepped and draped in the usual sterile fashion. The bladder was emptied. Appropriate time-out was held. Given the fact that the patient's BMI was 62, it was rather difficult visualizing the cervix, but this was eventually achieved by placing a weighted speculum and using vaginal wall retractors held by assistants. The Uterus was sounded to 7 cm and a [employer] uterine manipulator was placed. The instruments were removed and the erco machine operator's gloves were changed. Attention was then turned to the abdomen. Due to her BMI, the left upper quadrant entry was the preferred method. The DISTANCE EDUCATION FACULTY LIAISON inserted an OG tube attached to the vacuum to deflate the stomach. Two fingerbreadths below the left costal margin in the midclavicular line was infiltrated with 0.25% Marcaine and 5 mm incision was made with a scalpel. The Veress needle was carefully introduced and proper placement was confirmed with the water drop test, then CO2 insufflation was commenced. The opening pressure was less than 6 mmHg. After adequate pneumoperitoneum was achieved to a pressure of 15 mmHg, the Veress needle was removed and a 5 mm trocar was inserted into the peritoneal cavity, correct placement was confirmed with a 5 mm laparoscope. A panoramic survey of the abdomen was performed. The infraumbilical area was then infiltrated with 0.25% Marcaine, a skin skin incision was made and a 5 mm trocar was inserted under direct visualization into the abdominal cavity cavity. Two additional 5 mm trocars were placed bilaterally in the lower quadrants, approximately 8 cm from the midline under direct laparoscopic visualization. The pelvic organs were inspected with the aforementioned findings.The uterus was then elevated out of the pelvis. and the left ureter was identified deep within the pelvis. Given the fact that the left ovary was grossly enlarged cysts were not distinctly identifiable, I decided to remove the left tube and ovary. Using a 5 mm ligature device, the left infundibulopelvic ligament was identified , cauterized twice and then ligated. Continuing along the mesosalpinx, the left fallopian tube was cauterized and serially cut ligated until the cornua of the uterus was reached. The specimen was then held by my life science research assistant and the left 5 mm trocar was taken out. The incision was extended and a 12 mm trocar was inserted under direct visualization. An endobag device was then introduced through this port and advanced near the specimen under visualization and it was retrieved. The endobag was then pulled up onto anterior abdominal wall, opened up externally and using a laparoscopic aspiration needle, the ovarian tissue was punctured and I was able to aspirate 30 ml of dark creamy mucinous looking fluid. The aspiration was performed to collapse the specimen ovary collapse, enabling easier removal from the abdomen. Pelvic washings was performed. Good hemostasis of the resected area was noted. The left ureter was once again identified. The lateral ports and the left upper quadrant port were removed under direct visualization. The pneumoperitoneum was released and the laparoscope with the umbilical ports were then removed. The fascia of the left incision was closed with 0 Vicryl suture. All the skin incisions were closed with 4-0 Monocryl suture using subcuticular stitches. Attention was then turned to the patient's vagina. Given the fact that there was none of the coated available instruments for LEEP were suitable, we improvised by covering the weighted speculum and the vaginal wall retractors with [place] drain. These were then placed into the patient's vagina and the TUT[employer]el[employer] manipulator was removed. Identifying the cervix once again was quite difficult, but this was eventually achieved. Once the cervix was visualized, the loop excision was performed with a 12 x 15 mm loop. The cervical specimen was removed. Endocervical curettage was also performed and the sample was retrieved with the Cytobrush. Hemostasis was achieved with the cautery ball. The instruments were then removed from the patient's vagina. Instrument, needle, and sponge counts were correct at the end of the procedure. The patient was extubated and taken to the recovery room in a stable condition. JANUARYUMDUSTIN / MARIANNA /[id number] MARIAN
== END 2017-01-18 14:25 | disposition home or self-care (01) ==
LOC: MW.SDS 08:06
PROVIDERS: ATTEND Obstetrics & Gynecology
DX: N87.1 Moderate cervical dysplasia (principal); D27.1 Benign neoplasm of left ovary; F31.9 Bipolar disorder, unspecified; J44.9 Chronic obstructive pulmonary disease, unspecified; E11.9 Type 2 diabetes mellitus without complications; I10 Essential (primary) hypertension; E78.00 Pure hypercholesterolemia, unspecified; E66.01 Morbid (severe) obesity due to excess calories; F17.210 Nicotine dependence, cigarettes, uncomplicated; F41.9 Anxiety disorder, unspecified; M19.90 Unspecified osteoarthritis, unspecified site; E03.9 Hypothyroidism, unspecified; K21.9 Gastro-esophageal reflux disease without esophagitis; G47.30 Sleep apnea, unspecified; Z87.11 Personal history of peptic ulcer disease; Z87.01 Personal history of pneumonia (recurrent); Z79.4 Long term (current) use of insulin; Z79.84 Long term (current) use of oral hypoglycemic drugs; Z79.899 Other long term (current) drug therapy; Z90.49 Acquired absence of other specified parts of digestive tract; Z90.89 Acquired absence of other organs; Z68.44 Body mass index [BMI] 60.0-69.9, adult; Z88.8 Allergy status to other drugs, medicaments and biological substances; Z99.89 Dependence on other enabling machines and devices
CPT/HCPCS: 57522; 58661; 81025; 82962; A9270; J1100; J2250; J2405; J3010; J7120; 00840; 88104; 88305; 88307; J2704

== ENCOUNTER 2017-11-25 02:13 | Emergency (ER) | payer SELFPAY ==
--- NOTE | 2017-11-25 02:25 | EDM.PDOC ---
ED HPI GENERAL MEDICAL PROBLEM - General Chief Complaint: Back Pain or Injury Stated Complaint: CUTS ON LEG/BACK PAIN Time Seen by Provider: 11/25/17 02:19 Source of Information: Reports: Patient History Limitations: Reports: No Limitations - History of Present Illness INITIAL COMMENTS - FREE TEXT/NARRATIVE: HISTORY AND PHYSICAL: History of present illness: 36-year-old female presenting illness and per chief complaint of sudden left- sided lower back pain. Patient states that this evening she got up to go to the bathroom and after going to the bathroom began to have some sudden left-sided lower back pain. It is mostly localized to her left side and does not radiate into her lower extremity. She denies any bowel or bladder incontinence. She denies any recent trauma. Mother states that she did take a small fall this evening. Patient has had problems since Tuesday and did see a primary care provider today at which time she had a steroid injection intramuscularly as well as prescribed azithromycin for upper respiratory tract infection. States that she felt like she was doing better until suddenly started having this pain. On exam there exquisite pain left paraspinal area of old 3 through L5. No bony step-offs noted, no decrease in strength, sensation, neurovascular intact. Review of systems: As per history of present illness and below otherwise all systems reviewed and negative. Past medical history: As per history of present illness and as reviewed below otherwise noncontributory. Surgical history: As per history of present illness and as reviewed below otherwise noncontributory. Social history: No reported history of drug or alcohol abuse. Family history: As per history of present illness and as reviewed below otherwise noncontributory. Physical exam: HEENT: Atraumatic, normocephalic, pupils reactive, negative for conjunctival pallor or scleral icterus, mucous membranes moist, throat clear, neck supple, nontender, trachea midline. Lungs: Clear to auscultation, breath sounds equal bilaterally, chest nontender. Heart: S1S2, regular, negative for clicks, rubs, or JVD. Abdomen: Soft, nondistended, nontender. Negative for masses or hepatosplenomegaly. Negative for costovertebral tenderness. Pelvis: Stable nontender. Genitourinary: Deferred. Rectal: Deferred. Extremities: Atraumatic, negative for cords or calf pain. Neurovascular unremarkable. Neuro: Awake, alert, oriented. Cranial nerves II through XII unremarkable. Cerebellum unremarkable. Motor and sensory unremarkable throughout. Exam nonfocal. Diagnostics: CBC, CMP, lumbar x-ray, UA/[employer]: 60 mg Toradol IM 1, 1 mg Dilaudid IV 2, 1 L normal saline Impression: Low back strain Paraspinal muscle spasms Plan: CBC, CMP, UA were all unremarkable. Lumbar films showed no acute osseous injuries or abnormalities. Patient most likely has a lower lumbar strain with associated paraspinal muscle spasms. We discussed this at length. Suggested that she follow-up with her primary care provider. Did prescribe her Flexeril 10 mg by mouth 3 times a day 7 days as well as meloxicam 15 mg by mouth daily. Instructed her to return to emergency room if she had any new or worsening symptoms. Definitive disposition and diagnosis as appropriate pending reevaluation and review of above. low back Pain Score (Numeric/FACES): 10 - Related Data Allergies Allergy/AdvReac Type Severity Reaction Status Date / Time piperacillin sodium AdvReac Nausea and Verified 11/25/17 02:26 [From Zosyn] Vomiting tazobactam sodium AdvReac Nausea and Verified 11/25/17 02:26 [From Zosyn] Vomiting Home Meds: Home Meds Enalapril Maleate [Vasotec] 5 mg PO BEDTIME 10/30/13 [History] Furosemide [Lasix] 20 mg PO DAILY 10/30/13 [History] Gabapentin [Neurontin] 300 mg PO BID 10/30/13 [History] Tiotropium [place] [Spiriva Respimat] 2 inh IH ASDIRECTED 01/23/15 [History] metFORMIN [Glucophage] 1,000 mg PO BIDMEALS 03/01/15 [History] Citalopram [Celexa] 60 mg PO BEDTIME 10/13/15 [History] Levothyroxine Sodium [Synthroid] 175 mcg PO ACBREAKFAST 10/14/15 [History] Fenofibrate 48 mg PO DAILY 05/12/16 [History] Potassium Chloride 10 meq PO DAILY 05/12/16 [History] Canagliflozin [Invokana] 300 mg PO DAILY 01/12/17 [History] Azithromycin [Zithromax] 250 mg PO DAILY 11/25/17 [History] Liraglutide [Victoza 3-Gaudencio] 0.6 mg SQ DAILY 11/25/17 [History] methylPREDNISolone [Medrol] 4 mg PO DAILY 11/25/17 [History] Past Medical History HEENT History: Reports: None Cardiovascular History: Reports: High Cholesterol, Hypertension Respiratory History: Reports: Asthma, COPD, Pneumonia, Recurrent, Sleep Apnea, Other (See Below) Other Respiratory History: uses BiPAP at home Gastrointestinal History: Reports: GERD, Other (See Below) (h/o peptic ulcer) Genitourinary History: Reports: None CAR COUPLER History: Reports: Other (See Below) (ovarian cyst) Musculoskeletal History: Reports: Arthritis Neurological History: Reports: None Psychiatric History: Reports: Anxiety, Bipolar, Depression, Suicide Attempt Other Psychiatric History: mood disorder, borderline personality disorder Endocrine/Metabolic History: Reports: Diabetes, Type II, Hypothyroidism, Obesity /BMI 30+ (morbid obesity) Hematologic History: Reports: None Immunologic History: Reports: None Oncologic (Cancer) History: Reports: None Dermatologic History: Reports: Cellulitis, Other (See Below) Other Dermatologic History: skin abcess/infections - Infectious Disease History Infectious Disease History: Reports: Chicken Pox, Shingles - Past Surgical History Head Surgeries/Procedures: Reports: None HEENT Surgical History: Reports: Adenoidectomy, Tonsillectomy GI Surgical History: Reports: Cholecystectomy Musculoskeletal Surgical History: Reports: None Social & Family History - Family History Family Medical History: Noncontributory Cardiac: Reports: High Cholesterol, Other (See Below) Other Cardiac Family History: heart attack Respiratory: Reports: Asthma, COPD GI: Reports: None : Reports: None OBGYN: Reports: Musculoskeletal: Reports: Arthritis Neurological: Reports: Alzheimers Disease, CVA Psychiatric: Reports: Anxiety, Depression, Panic Attack Endocrine/Metabolic: Reports: Diabetes, Type I, Diabetes, type II Oncologic: Reports: Pancreatic - Caffeine Use Caffeine Use: Reports: Energy Drinks, Tea ED ROS GENERAL - Review of Systems Review Of Systems: ROS reveals no pertinent complaints other than HPI. ED EXAM, GENERAL - Physical Exam Exam: See Below Course - Vital Signs Last Recorded V/S: Last Vital Signs Temp 96.7 F 11/25/17 02:13 Pulse 123 H 11/25/17 02:13 Resp 18 11/25/17 02:13 BP 138/90 11/25/17 02:13 Pulse Ox 92 L 11/25/17 02:13 - Orders/Labs/Meds Orders: Active Orders 24 hr Category Date Time Status Lumbar Spine 2 or 3V [CR] Stat Exams 11/25/17 03:51 Taken CULTURE URINE [RM] Stat Lab 11/25/17 02:50 Received UA W/MICROSCOPIC [URIN] Stat Lab 11/25/17 02:50 Ordered Promethazine [Phenergan] Med 11/25/17 04:29 Stop Req 25 mg IM ONETIME ONE Labs: Laboratory Tests 11/25/17 11/25/17 11/25/17 Range/Units 02:50 03:10 03:10 WBC 12.63 H (4.0-11.0) K/uL RBC 5.03 (4.30-5.90) M/uL Hgb 15.7 (12.0-16.0) g/dL Hct 44.1 (36.0-46.0) % MCV 87.7 (80.0-98.0) fL MCH 31.2 (27.0-32.0) pg MCHC 35.6 (31.0-37.0) g/dL RDW Std Deviation 50.8 (28.0-62.0) fl RDW Coeff of [place] 16 H (11.0-15.0) % Plt Count 171 (150-400) K/uL MPV 12.50 H (7.40-12.00) fL Neut % (Auto) 61.5 (48.0-80.0) % Lymph % (Auto) 31.7 (16.0-40.0) % [place] % (Auto) 4.2 (0.0-15.0) % Eos % (Auto) 2.3 (0.0-7.0) % Baso % (Auto) 0.3 (0.0-1.5) % Neut # (Auto) 7.8 H (1.4-5.7) K/uL Lymph # (Auto) 4.0 H (0.6-2.4) K/uL [place] # (Auto) 0.5 (0.0-0.8) K/uL Eos # (Auto) 0.3 (0.0-0.7) K/uL Baso # (Auto) 0.0 (0.0-0.1) K/uL Nucleated RBC % 0.0 /100WBC Nucleated RBCs # 0 K/uL Sodium 139 (136-145) mmol/L Potassium 3.5 (3.5-5.1) mmol/L Chloride 102 (98-107) mmol/L Carbon Dioxide 22.4 (21.0-32.0) mmol/L BUN 6 L (7.0-18.0) mg/dL Creatinine 1.0 (0.6-1.0) mg/dL Est Cr Clr Drug Dosing 55.86 mL/min Estimated GFR (MDRD) > 60.0 ml/min Glucose 135 H (74-106) mg/dL Calcium 9.4 (8.5-10.1) mg/dL Total Bilirubin 0.2 (0.2-1.0) mg/dL AST 14 L (15-37) IU/L ALT 24 (14-63) IU/L Alkaline Phosphatase 59 (46-116) U/L Total Protein 7.2 (6.4-8.2) g/dL Albumin 4.0 (3.4-5.0) g/dL Globulin 3.2 (2.0-3.5) g/dL Albumin/Globulin Ratio 1.3 (1.3-2.8) Urine Color YELLOW Urine Appearance CLEAR Urine pH 5.5 (5.0-8.0) Ur Specific [place] <= 1.005 (1.001-1.035) Urine Protein NEGATIVE (NEGATIVE) mg/dL Urine Glucose (UA) >=1000 (NEGATIVE) mg/dL Urine Ketones NEGATIVE (NEGATIVE) mg/dL Urine Occult Blood NEGATIVE (NEGATIVE) Urine Nitrite NEGATIVE (NEGATIVE) Urine Bilirubin NEGATIVE (NEGATIVE) Urine Urobilinogen 0.2 (<2.0) EU/dL Ur Leukocyte Esterase NEGATIVE (NEGATIVE) Urine RBC 0-2 (0-2/HPF) Urine WBC 0-1 (0-5/HPF) Ur Epithelial Cells OCCASIONAL (NONE-FEW) Urine Bacteria FEW (NEGATIVE) Urine Yeast RARE Meds: Medications Discontinued Medications Generic Name Dose Route Start Last Admin Trade Name Freq PRN Reason Stop Dose Admin Hydromorphone HCl 1 mg 11/25/17 03:00 11/25/17 03:23 Dilaudid IM 11/25/17 03:01 Not Given ONETIME ONE Hydromorphone HCl Confirm 11/25/17 03:18 07/06/18 03:23 Dilaudid Administered 11/25/17 03:19 Not Given Dose 1 mg .ROUTE .STK-MED ONE Hydromorphone HCl 1 mg 11/25/17 03:22 11/25/17 03:23 Dilaudid IVPUSH 11/25/17 03:23 1 mg ONETIME ONE Administration Hydromorphone HCl 1 mg 11/25/17 04:28 Dilaudid IVPUSH 11/25/17 04:29 ONETIME ONE Sodium Chloride 1,000 mls @ 999 mls/hr 11/25/17 03:00 11/25/17 03:22 Normal Saline IV 11/25/17 04:00 999 mls/hr STAT ONE Administration Ketorolac Tromethamine 60 mg 11/25/17 02:26 11/25/17 02:33 Toradol IM 11/25/17 02:27 60 mg ONETIME ONE Administration Promethazine HCl 25 mg 11/25/17 04:29 Phenergan IM 11/25/17 04:30 ONETIME ONE Departure - Departure Time of Disposition: 04:39 Disposition: Home, Self-Care 01 Condition: Good Clinical Impression: Paraspinal muscle spasm Lumbar strain Qualifiers: Encounter type: initial encounter Qualified Code(s): S39.012A - Strain of muscle, fascia and tendon of lower back, initial encounter - Discharge Information Forms: ED Department Discharge Additional Instructions: My general discharge The following information is given to patients seen in the emergency department who are being discharged to home. This information is to outline your options for follow-up care. We provide all patients seen in our emergency department with a follow-up referral. The need for follow-up, as well as the timing and circumstances, are variable depending upon the specifics of your emergency department visit. If you don't have a primary care physician on staff, we will provide you with a referral. We always advise you to contact your personal physician following an emergency department visit to inform them of the circumstance of the visit and for follow-up with them and/or the need for any referrals to a consulting specialist. The emergency department will also refer you to a specialist when appropriate. This referral assures that you have the opportunity for follow-up care with a specialist. All of these measure are taken in an effort to provide you with optimal care, which includes your follow-up. Under all circumstances we always encourage you to contact your private physician who remains a resource for coordinating your care. When calling for follow-up care, please make the office aware that this follow-up is from your recent emergency room visit. If for any reason you are refused follow-up, please contact the [facility] Emergency Department at and asked to speak to the emergency department charge nurse. [facility] [address] [place] [id number] [facility] [address] [place] [id number] Follow-up with primary care provider. Take medications as prescribed. Return to emergency department if any new or worsening symptoms. - My Orders Last 24 Hours: My Active Orders 11/25/17 02:50 CULTURE URINE [RM] Stat UA W/MICROSCOPIC [URIN] Stat 11/25/17 03:51 Lumbar Spine 2 or 3V [CR] Stat 11/25/17 04:29 Promethazine [Phenergan] 25 mg IM ONETIME ONE - Assessment/Plan Last 24 Hours: My Active Orders 11/25/17 02:50 CULTURE URINE [RM] Stat UA W/MICROSCOPIC [URIN] Stat 11/25/17 03:51 Lumbar Spine 2 or 3V [CR] Stat 11/25/17 04:29 Promethazine [Phenergan] 25 mg IM ONETIME ONE
[2017-11-25] MEDS ORDERED: Ketorolac 60 MG/2 ML SDV IM ONE (02:26)
[2017-11-25] MEDS ORDERED: Sodium Chloride 0.9% 1,000 ML IV ONE (03:00)
[2017-11-25] MEDS ORDERED: HYDROmorphone 2 MG/ML SDV IM ONE (03:00)
[2017-11-25] MEDS ORDERED: HYDROmorphone 1 MG/ML Syringe ONE (03:18)
[2017-11-25] MEDS ORDERED: HYDROmorphone 1 MG/ML Syringe IVPUSH ONE ×2 (03:22→04:28)
[2017-11-25 03:36] LABS: CHLORIDE,CL 102 mmol/L (98-107); SODIUM,NA 139 mmol/L (136-145)
[2017-11-25] MEDS ORDERED: Promethazine 25 MG/ML SDV IM ONE (04:29)
[2017-11-25 04:38] VITALS: BP 103/53
--- NOTE | 2017-11-25 16:38 | CR ---
EXAM DATE: 11/25/17 PATIENT'S AGE: 36 Patient: DOMONIQUE ELIZABETH Facility: [place], [place] Site . Site : [id number] Study: XRay Spine Lumbar [id number]/[id number] 4:18:17 AM Ordering Physician: Conrad Rios Final Report: INDICATION: Low back pain. Patient states she fell onto her back a few hours ago TECHNIQUE: Lumbar spine radiograph 3 views COMPARISON: None FINDINGS: Severe degradation of image quality noted due to body habitus. Bones: No acute fractures or aggressive bone lesions are identified. Alignment is normal. Discs: The disc spaces are unremarkable in appearance. The facet joints are unremarkable. Soft tissues: Unremarkable. No radiopaque foreign bodies are seen. IMPRESSION: 1. No acute osseous injuries or abnormalities are noted. Dictated by: Garry Galindo MD @ 11/25/2017 04:20:16 (Electronic Signature) Report Signed by Proxy. MARIAN
== END 2017-11-25 04:50 | disposition home or self-care (01) ==
LOC: MW.ED 02:13
DX: S39.012A Strain of muscle, fascia and tendon of lower back, initial encounter (principal); M62.830 Muscle spasm of back; I10 Essential (primary) hypertension; J44.9 Chronic obstructive pulmonary disease, unspecified; F41.9 Anxiety disorder, unspecified; F31.9 Bipolar disorder, unspecified; E78.00 Pure hypercholesterolemia, unspecified; K21.9 Gastro-esophageal reflux disease without esophagitis; E11.9 Type 2 diabetes mellitus without complications; E03.9 Hypothyroidism, unspecified; E66.01 Morbid (severe) obesity due to excess calories; Z68.43 Body mass index [BMI] 50.0-59.9, adult; Z79.899 Other long term (current) drug therapy; Z88.8 Allergy status to other drugs, medicaments and biological substances; Z79.84 Long term (current) use of oral hypoglycemic drugs; W19.XXXA Unspecified fall, initial encounter
CPT/HCPCS: 36415; 72100; 80053; 81001; 85025; 87086; 96361; 96372; 96374; 96376; 99284; J1170; J1885; J7040; 99283

== ENCOUNTER 2018-08-12 23:25 | Emergency (ER) | payer OTHER ==
[2018-08-12] MEDS ORDERED: Lidocaine 2% 5 ML SDV INJECT ONE (23:49)
[2018-08-12] MEDS ORDERED: Lidocaine 1% 10 ML MDV INJECT ONE (23:51)
--- NOTE | 2018-08-12 23:51 | EDM.PDOC ---
ED HPI GENERAL MEDICAL PROBLEM - General Chief Complaint: Laceration Stated Complaint: CUT BETWEEN TOES ON LT FOOT Time Seen by Provider: 08/12/18 23:49 - History of Present Illness INITIAL COMMENTS - FREE TEXT/NARRATIVE: HISTORY AND PHYSICAL: History of present illness: Patient 37-year-old female presents with syrup laceration left foot this occurred when she had it on a heater she denies other trauma or concern tetanus status is to be determined Review of systems: As per history of present illness and below otherwise all systems reviewed and negative. Past medical history: As per history of present illness and as reviewed below otherwise noncontributory. Surgical history: As per history of present illness and as reviewed below otherwise noncontributory. Social history: No reported history of drug or alcohol abuse. Family history: As per history of present illness and as reviewed below otherwise noncontributory. Physical exam: HEENT: Atraumatic, normocephalic, pupils reactive, negative for conjunctival pallor or scleral icterus, mucous membranes moist, throat clear, neck supple, nontender, trachea midline. Lungs: Clear to auscultation, breath sounds equal bilaterally, chest nontender. Heart: S1S2, regular, negative for clicks, rubs, or JVD. Abdomen: Soft, nondistended, nontender. Negative for masses or hepatosplenomegaly. Negative for costovertebral tenderness. Pelvis: Stable nontender. Genitourinary: Deferred. Rectal: Deferred. Extremities: Patient has approximately 1.5 cm laceration on the plantar aspect of the second digit of her left foot CMS and neurovascular exam is unremarkable Neuro: Awake, alert, oriented. Cranial nerves II through XII unremarkable. Cerebellum unremarkable. Motor and sensory unremarkable throughout. Exam nonfocal. Diagnostics: None Therapeutics: Patient was anesthetized with 2% lidocaine without epinephrine and irrigated with copious loss 0.9 normal saline prepped and draped in sterile manner closed with 5-0 absorbable suture Impression: #1 left foot injury (laceration) Definitive disposition and diagnosis as appropriate pending reevaluation and review of above. Left Foot Pain Score (Numeric/FACES): 2 - Related Data Allergies Allergy/AdvReac Type Severity Reaction Status Date / Time piperacillin sodium AdvReac Nausea and Verified 08/12/18 23:37 [From Zosyn] Vomiting tazobactam sodium AdvReac Nausea and Verified 08/12/18 23:37 [From Zosyn] Vomiting Home Meds: Home Meds Enalapril Maleate [Vasotec] 5 mg PO BEDTIME 10/30/13 [History] Furosemide [Lasix] 20 mg PO DAILY 10/30/13 [History] Gabapentin [Neurontin] 300 mg PO BID 10/30/13 [History] metFORMIN [Glucophage] 1,000 mg PO BIDMEALS 03/01/15 [History] Citalopram [Celexa] 60 mg PO BEDTIME 10/13/15 [History] Levothyroxine Sodium [Synthroid] 175 mcg PO ACBREAKFAST 10/14/15 [History] Fenofibrate 48 mg PO DAILY 05/12/16 [History] Potassium Chloride 10 meq PO DAILY 05/12/16 [History] Canagliflozin [Invokana] 300 mg PO DAILY 01/12/17 [History] Liraglutide [Victoza 3-Gaudencio] 0.6 mg SQ DAILY 11/25/17 [History] Past Medical History HEENT History: Reports: None Cardiovascular History: Reports: High Cholesterol, Hypertension Respiratory History: Reports: Asthma, COPD, Pneumonia, Recurrent, Sleep Apnea, Other (See Below) Other Respiratory History: uses BiPAP at home Gastrointestinal History: Reports: GERD, Other (See Below) Genitourinary History: Reports: None 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) Musculoskeletal History: Reports: Arthritis Neurological History: Reports: None Psychiatric History: Reports: Anxiety, Bipolar, Depression, Suicide Attempt Other Psychiatric History: mood disorder, borderline personality disorder Endocrine/Metabolic History: Reports: Diabetes, Type II, Hypothyroidism, Obesity /BMI 30+ Hematologic History: Reports: None Immunologic History: Reports: None Oncologic (Cancer) History: Reports: None Dermatologic History: Reports: Cellulitis, Other (See Below) Other Dermatologic History: skin abcess/infections - Infectious Disease History Infectious Disease History: Reports: Chicken Pox - Past Surgical History Head Surgeries/Procedures: Reports: None HEENT Surgical History: Reports: Adenoidectomy, Tonsillectomy GI Surgical History: Reports: Cholecystectomy Musculoskeletal Surgical History: Reports: None Social & Family History - Family History Family Medical History: Noncontributory Cardiac: Reports: High Cholesterol, Other (See Below) Other Cardiac Family History: heart attack Respiratory: Reports: Asthma, COPD GI: Reports: None : Reports: None OBGYN: Reports: Musculoskeletal: Reports: Arthritis Neurological: Reports: Alzheimers Disease, CVA Psychiatric: Reports: Anxiety, Depression, Panic Attack Endocrine/Metabolic: Reports: Diabetes, Type I, Diabetes, type II Oncologic: Reports: Pancreatic - Tobacco Use Smoking Status *Q: Current Every Day Smoker Years of Tobacco use: 25 Packs/Tins Daily: 1 - Caffeine Use Caffeine Use: Reports: Coffee - Recreational Drug Use Recreational Drug Use: No ED ROS GENERAL - Review of Systems Review Of Systems: ROS reveals no pertinent complaints other than HPI. ED EXAM, SKIN/RASH Exam: See Below (See dictation) Course - Vital Signs Last Recorded V/S: Last Vital Signs Temp 36.0 C 08/12/18 23:40 Pulse 100 08/12/18 23:40 Resp 16 08/12/18 23:40 BP 134/70 08/12/18 23:40 Pulse Ox 98 08/12/18 23:40 - Orders/Labs/Meds Meds: Medications Discontinued Medications Generic Name Dose Route Start Last Admin Trade Name Ingrid PRN Reason Stop Dose Admin Lidocaine 5 ml 08/12/18 23:49 08/13/18 00:11 Xylocaine-Mpf 2% INJECT 08/12/18 23:50 Not Given ONETIME ONE Lidocaine HCl 10 ml 08/12/18 23:51 08/13/18 00:10 Xylocaine 1% INJECT 08/12/18 23:52 Not Given ONETIME ONE Lidocaine HCl 5 ml 08/12/18 23:54 Xylocaine-Mpf 1% INJECT 08/12/18 23:55 ONETIME ONE Departure - Departure Time of Disposition: 00:30 Disposition: Home, Self-Care 01 Condition: Good Clinical Impression: Foot injury - Discharge Information Referrals: PCP,None [Primary Care Provider] - Forms: ED Department Discharge Additional Instructions: The following information is given to patients seen in the emergency department who are being discharged to home. This information is to outline your options for follow-up care. We provide all patients seen in our emergency department with a follow-up referral. The need for follow-up, as well as the timing and circumstances, are variable depending upon the specifics of your emergency department visit. If you don't have a primary care physician on staff, we will provide you with a referral. We always advise you to contact your personal physician following an emergency department visit to inform them of the circumstance of the visit and for follow-up with them and/or the need for any referrals to a consulting specialist. The emergency department will also refer you to a specialist when appropriate. This referral assures that you have the opportunity for followup care with a specialist. All of these measure are taken in an effort to provide you with optimal care, which includes your followup. Under all circumstances we always encourage you to contact your private physician who remains a resource for coordinating your care. When calling for followup care, please make the office aware that this follow-up is from your recent emergency room visit. If for any reason you are refused follow-up, please contact the [facility] emergency department at and asked to speak to the emergency department charge nurse. Wound check 48 hours postop she was discussed return as needed as discussed
[2018-08-13] MEDS ORDERED: Bacitracin Oint 1 GM U/D Packet TOP ONE (00:40)
[2018-08-13 00:54] VITALS: BP 121/60
== END 2018-08-13 01:14 | disposition home or self-care (01) ==
LOC: MW.ED 23:25
DX: S91.312A Laceration without foreign body, left foot, initial encounter (principal); E11.9 Type 2 diabetes mellitus without complications; I10 Essential (primary) hypertension; E78.00 Pure hypercholesterolemia, unspecified; J44.9 Chronic obstructive pulmonary disease, unspecified; F17.210 Nicotine dependence, cigarettes, uncomplicated; K21.9 Gastro-esophageal reflux disease without esophagitis; F41.9 Anxiety disorder, unspecified; F31.9 Bipolar disorder, unspecified; E03.9 Hypothyroidism, unspecified; Z88.8 Allergy status to other drugs, medicaments and biological substances; Z79.4 Long term (current) use of insulin; Z79.899 Other long term (current) drug therapy; W22.8XXA Striking against or struck by other objects, initial encounter
CPT/HCPCS: 12001; 99282; J2001

== ENCOUNTER 2018-10-21 01:43 | Emergency (ER) | payer OTHER ==
--- NOTE | 2018-10-21 01:55 | EDM.PDOC ---
ED HPI GENERAL MEDICAL PROBLEM - General Chief Complaint: Upper Extremity Injury/Pain Stated Complaint: RIGHT HAND POSSIBLY BROKEN Time Seen by Provider: 10/21/18 01:53 - History of Present Illness INITIAL COMMENTS - FREE TEXT/NARRATIVE: HISTORY AND PHYSICAL: History of present illness: Patient 37-year-old female present since her right hand injury this occurred earlier today she denies other trauma concern she states she had a prior remote fracture Review of systems: As per history of present illness and below otherwise all systems reviewed and negative. Past medical history: As per history of present illness and as reviewed below otherwise noncontributory. Surgical history: As per history of present illness and as reviewed below otherwise noncontributory. Social history: No reported history of drug or alcohol abuse. Family history: As per history of present illness and as reviewed below otherwise noncontributory. Physical exam: HEENT: Atraumatic, normocephalic, pupils reactive, negative for conjunctival pallor or scleral icterus, mucous membranes moist, throat clear, neck supple, nontender, trachea midline. Lungs: Clear to auscultation, breath sounds equal bilaterally, chest nontender. Heart: S1S2, regular, negative for clicks, rubs, or JVD. Abdomen: Soft, nondistended, nontender. Negative for masses or hepatosplenomegaly. Negative for costovertebral tenderness. Pelvis: Stable nontender. Genitourinary: Deferred. Rectal: Deferred. Extremities: Right hand has some mild tenderness over the dorsal aspect is not well localized is no crepitation or gross deformity neurovascular exam is unremarkable Neuro: Awake, alert, oriented. Cranial nerves II through XII unremarkable. Cerebellum unremarkable. Motor and sensory unremarkable throughout. Exam nonfocal. Diagnostics: X-ray right hand Therapeutics: None Impression: #1 right hand injury Definitive disposition and diagnosis as appropriate pending reevaluation and review of above. Right Hand Pain Score (Numeric/FACES): 2 - Related Data Allergies Allergy/AdvReac Type Severity Reaction Status Date / Time piperacillin sodium AdvReac Nausea and Verified 10/21/18 01:49 [From Zosyn] Vomiting tazobactam sodium AdvReac Nausea and Verified 10/21/18 01:49 [From Zosyn] Vomiting Home Meds: Home Meds Enalapril Maleate [Vasotec] 5 mg PO BEDTIME 10/30/13 [History] Furosemide [Lasix] 20 mg PO DAILY 10/30/13 [History] Gabapentin [Neurontin] 300 mg PO BID 10/30/13 [History] metFORMIN [Glucophage] 1,000 mg PO BIDMEALS 03/01/15 [History] Citalopram [Celexa] 60 mg PO BEDTIME 10/13/15 [History] Levothyroxine Sodium [Synthroid] 175 mcg PO ACBREAKFAST 10/14/15 [History] Fenofibrate 48 mg PO DAILY 05/12/16 [History] Potassium Chloride 10 meq PO DAILY 05/12/16 [History] Canagliflozin [Invokana] 300 mg PO DAILY 01/12/17 [History] Liraglutide [Victoza 3-Gaudencio] 0.6 mg SQ DAILY 11/25/17 [History] Past Medical History HEENT History: Reports: None Cardiovascular History: Reports: High Cholesterol, Hypertension Respiratory History: Reports: Asthma, COPD, Pneumonia, Recurrent, Sleep Apnea, Other (See Below) Other Respiratory History: uses BiPAP at home Gastrointestinal History: Reports: GERD, Other (See Below) Genitourinary History: Reports: None 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) Musculoskeletal History: Reports: Arthritis Neurological History: Reports: None Psychiatric History: Reports: Anxiety, Bipolar, Depression, Suicide Attempt Other Psychiatric History: mood disorder, borderline personality disorder Endocrine/Metabolic History: Reports: Diabetes, Type II, Hypothyroidism, Obesity /BMI 30+ Hematologic History: Reports: None Immunologic History: Reports: None Oncologic (Cancer) History: Reports: None Dermatologic History: Reports: Cellulitis, Other (See Below) Other Dermatologic History: skin abcess/infections - Infectious Disease History Infectious Disease History: Reports: Chicken Pox - Past Surgical History Head Surgeries/Procedures: Reports: None HEENT Surgical History: Reports: Adenoidectomy, Tonsillectomy GI Surgical History: Reports: Cholecystectomy Musculoskeletal Surgical History: Reports: None Social & Family History - Family History Family Medical History: Noncontributory Cardiac: Reports: High Cholesterol, Other (See Below) Other Cardiac Family History: heart attack Respiratory: Reports: Asthma, COPD GI: Reports: None : Reports: None OBGYN: Reports: Musculoskeletal: Reports: Arthritis Neurological: Reports: Alzheimers Disease, CVA Psychiatric: Reports: Anxiety, Depression, Panic Attack Endocrine/Metabolic: Reports: Diabetes, Type I, Diabetes, type II Oncologic: Reports: Pancreatic - Caffeine Use Caffeine Use: Reports: Coffee Review of Systems - Review of Systems Review Of Systems: ROS reveals no pertinent complaints other than HPI. ED EXAM, GENERAL - Physical Exam Exam: See Below (See dictation) Course - Vital Signs Last Recorded V/S: Last Vital Signs Temp 36.0 C 10/21/18 01:49 Pulse 112 H 10/21/18 01:49 Resp 19 10/21/18 01:49 BP 117/62 10/21/18 01:49 Pulse Ox 96 10/21/18 01:49 - Orders/Labs/Meds Orders: Active Orders 24 hr Category Date Time Status Hand Comp Min 3V Rt [CR] Stat Exams 10/21/18 01:49 Ordered Departure - Departure Time of Disposition: 01:55 Disposition: Home, Self-Care 01 Condition: Good Clinical Impression: Hand injury - Discharge Information Referrals: Kasi Gonzalez MD [Primary Care Provider] - Additional Instructions: The following information is given to patients seen in the emergency department who are being discharged to home. This information is to outline your options for follow-up care. We provide all patients seen in our emergency department with a follow-up referral. The need for follow-up, as well as the timing and circumstances, are variable depending upon the specifics of your emergency department visit. If you don't have a primary care physician on staff, we will provide you with a referral. We always advise you to contact your personal physician following an emergency department visit to inform them of the circumstance of the visit and for follow-up with them and/or the need for any referrals to a consulting specialist. The emergency department will also refer you to a specialist when appropriate. This referral assures that you have the opportunity for followup care with a specialist. All of these measure are taken in an effort to provide you with optimal care, which includes your followup. Under all circumstances we always encourage you to contact your private physician who remains a resource for coordinating your care. When calling for followup care, please make the office aware that this follow-up is from your recent emergency room visit. If for any reason you are refused follow-up, please contact the [facility] emergency department at and asked to speak to the emergency department charge nurse. Motrin/Tylenol as directed follow-up primary medical doctor return as needed as discussed - My Orders Last 24 Hours: My Active Orders 10/21/18 01:49 Hand Comp Min 3V Rt [CR] Stat - Assessment/Plan Last 24 Hours: My Active Orders 10/21/18 01:49 Hand Comp Min 3V Rt [CR] Stat
[2018-10-21 01:56] VITALS: BP 117/62
--- NOTE | 2018-10-21 02:17 | CR ---
INDICATION: Hand Pain and slight swelling after hearing a "pop" today TECHNIQUE: Hand radiograph 3 views right COMPARISON: 12/23/2017 FINDINGS: Bone: No acute fractures or aggressive bone lesions are identified. Joint: Widening of the scapholunate joint is present of the interval change and consistent with prior injury of the scapholunate ligament. Soft tissue: Unremarkable. No radiopaque foreign bodies are seen. IMPRESSIONS: 1. No acute osseous injuries or abnormalities are noted. 2. Widening of the scapholunate joint is present of the interval change and consistent with prior injury of the scapholunate ligament. Dictated by Garry Galindo MD @ 10/21/2018 2:15:03 AM Dictated by: Garry Galindo MD @ 10/21/2018 02:15:06 (Electronically Signed)
== END 2018-10-21 02:29 | disposition home or self-care (01) ==
LOC: MW.ED 01:43
DX: S69.91XA Unspecified injury of right wrist, hand and finger(s), initial encounter (principal); E11.9 Type 2 diabetes mellitus without complications; E03.9 Hypothyroidism, unspecified; I10 Essential (primary) hypertension; E78.00 Pure hypercholesterolemia, unspecified; J44.9 Chronic obstructive pulmonary disease, unspecified; F41.9 Anxiety disorder, unspecified; F31.9 Bipolar disorder, unspecified; Z88.8 Allergy status to other drugs, medicaments and biological substances; Z79.899 Other long term (current) drug therapy; Z79.84 Long term (current) use of oral hypoglycemic drugs; X58.XXXA Exposure to other specified factors, initial encounter
CPT/HCPCS: 73130-26-RT; 73130-RT; 99283-25

== ENCOUNTER 2018-11-26 01:11 | Emergency (ER) | payer OTHER ==
[2018-11-26] MEDS ORDERED: Sodium Chloride 0.9% 10 ML Syringe FLUSH PRN (01:30)
[2018-11-26] MEDS ORDERED: Sodium Chloride 0.9% 1,000 ML IV ONE ×2 (01:30→02:53)
[2018-11-26] MEDS ORDERED: Sodium Chloride 0.9% 2.5 ML Syringe FLUSH PRN (01:30)
[2018-11-26] MEDS ORDERED: Ondansetron 4 MG/2 ML SDV IVPUSH ONE (01:30)
--- NOTE | 2018-11-26 01:36 | EDM.PDOC ---
ED HPI GENERAL MEDICAL PROBLEM - General Chief Complaint: Drug or Alcohol Abuse Stated Complaint: TOOK TOO MANY PILLS(BP MEDS) Time Seen by Provider: 11/26/18 01:21 - History of Present Illness INITIAL COMMENTS - FREE TEXT/NARRATIVE: HISTORY AND PHYSICAL: History of present illness: The patient is a 37-year-old female with a known history of hypertension hyperlipidemia alcohol use and abuse asthma who follows in our clinics and presents after ingesting approximately 15 tablets of 5 mg and enalapril approximately at 12:30 to 12:45 AM, about one hour ago. The patient says today is the anniversary of a friend of hers killing himself and she said that she felt very sad and has been crying all night and she tells me that she "wanted to just go and be with her friend". She doesn't comment on any other triggers other than his overwhelming sadness and admits to me that this was an intentional gesture. She has not had any vomiting but she feels nauseated and earlier today she had no abdominal pain chest pain or shortness of breath no fevers chills vomiting or diarrhea and is having normal urine output. Currently she has no chest pain lightheadedness or dizziness and no abdominal pain. She did not vomit any of the pills. She denies any other coingestions other than several beers and some ROM but she denies other drug ingestions the counter medication ingestions and no illicit drug use. Patient came in willing we will her roommate. When he specifically challenge the patient on the fact that 15 tablets of enalapril is not normal and was this an intentional overdose she agrees. Review of systems: As per history of present illness and below otherwise all systems reviewed and negative. Past medical history: As per history of present illness and as reviewed below otherwise noncontributory. Surgical history: As per history of present illness and as reviewed below otherwise noncontributory. Social history: No reported history of drug or alcohol abuse. Family history: As per history of present illness and as reviewed below otherwise noncontributory. Physical exam: General: Well-developed well-nourished obese female who is nontoxic and is tearful on my exam but is appropriate and cooperative speaking clearly. HEENT: Atraumatic, normocephalic, pupils reactive, clear are injected and eyelids are swollen likely from crying, there is a smell of alcohol on the patient's breath negative for conjunctival pallor or scleral icterus, mucous membranes moist, throat clear, neck supple, nontender, trachea midline. Lungs: Clear to auscultation, breath sounds equal bilaterally, chest nontender. Heart: S1S2, regular rhythm and slightly tachycardic rate on my evaluation Abdomen: Soft, nondistended, nontender. Negative for masses or hepatosplenomegaly. NABS Pelvis: Stable nontender. Genitourinary: Deferred. Rectal: Deferred. Extremities: Atraumatic, negative for cords or calf pain. Neurovascular unremarkable no pedal edema or leg asymmetry. Neuro: Awake, alert, oriented. Cranial nerves II through XII unremarkable. Cerebellum unremarkable. Motor and sensory unremarkable throughout. Exam nonfocal. Diagnostics: EKG CBC CMP Tylenol and aspirin levels alcohol level TSH magnesium INR UA UDS UCG Therapeutics: IV O2 monitor ID fluids [place] Poison control was contacted by nursing at 1:25 AM and agrees with our workup and supportive care including IV fluids. They say that the duration and peak intensity of the enalapril as 6-7 hours and they would like repeat labs performed at 6 hours. Patient continues to have drops in her blood pressure down to the 80s and her blood pressure at the time of my phone call with [facility] in [place] was 91/48 after 2 L of fluid. When I went in to discuss with her the plan a was 88/ 50. She is eating some food currently and does not look like she is in any distress but she is aware that as a result of her taking those medications she is having these drops in blood pressure. She insists that her blood pressure "always runs low". Poison control was also notified of this and is requesting a repeat BMP and salicylate level at about 6:30 AM. I discussed this case with Dr. Lainez in the ER at [facility] at 04 10 and he accepts the patient and agrees that she should be flown here as she will need constant monitoring her blood pressure and if the fluids do not work then norepinephrine would need to be started per poison control's recommendations. We will get flight team here and I have performed and filled out an emergency custodial order for the psychiatric component of her care. Please note that the blood pressure cuff has been moved to both extremities and has been adjusted repeatedly to get the numbers that are documented. Impression: Intentional ingestion of enalapril with intermittent persistent hypotension Definitive disposition and diagnosis as appropriate pending reevaluation and review of above. - Related Data Allergies Allergy/AdvReac Type Severity Reaction Status Date / Time piperacillin sodium AdvReac Nausea and Verified 11/26/18 01:13 [From Zosyn] Vomiting tazobactam sodium AdvReac Nausea and Verified 11/26/18 01:13 [From Zosyn] Vomiting Home Meds: Home Meds Enalapril Maleate [Vasotec] 5 mg PO BEDTIME 10/30/13 [History] Furosemide [Lasix] 20 mg PO DAILY 10/30/13 [History] Gabapentin [Neurontin] 300 mg PO BID 10/30/13 [History] metFORMIN [Glucophage] 1,000 mg PO BIDMEALS 03/01/15 [History] Citalopram [Celexa] 60 mg PO BEDTIME 10/13/15 [History] Levothyroxine Sodium [Synthroid] 175 mcg PO ACBREAKFAST 10/14/15 [History] Fenofibrate 48 mg PO DAILY 05/12/16 [History] Potassium Chloride 10 meq PO DAILY 05/12/16 [History] Canagliflozin [Invokana] 300 mg PO DAILY 01/12/17 [History] Liraglutide [Victoza 3-Gaudencio] 0.6 mg SQ DAILY 11/25/17 [History] Past Medical History HEENT History: Reports: None Cardiovascular History: Reports: High Cholesterol, Hypertension Respiratory History: Reports: Asthma, COPD, Pneumonia, Recurrent, Sleep Apnea, Other (See Below) Other Respiratory History: uses BiPAP at home Gastrointestinal History: Reports: GERD, Other (See Below) Genitourinary History: Reports: None 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) Musculoskeletal History: Reports: Arthritis Neurological History: Reports: None Psychiatric History: Reports: Anxiety, Bipolar, Depression, Suicide Attempt Other Psychiatric History: mood disorder, borderline personality disorder Endocrine/Metabolic History: Reports: Diabetes, Type II, Hypothyroidism, Obesity /BMI 30+ Hematologic History: Reports: None Immunologic History: Reports: None Oncologic (Cancer) History: Reports: None Dermatologic History: Reports: Cellulitis, Other (See Below) Other Dermatologic History: skin abcess/infections - Infectious Disease History Infectious Disease History: Reports: Chicken Pox - Past Surgical History Head Surgeries/Procedures: Reports: None HEENT Surgical History: Reports: Adenoidectomy, Tonsillectomy GI Surgical History: Reports: Cholecystectomy Musculoskeletal Surgical History: Reports: None Social & Family History - Family History Family Medical History: Noncontributory Cardiac: Reports: High Cholesterol, Other (See Below) Other Cardiac Family History: heart attack Respiratory: Reports: Asthma, COPD GI: Reports: None : Reports: None OBGYN: Reports: Musculoskeletal: Reports: Arthritis Neurological: Reports: Alzheimers Disease, CVA Psychiatric: Reports: Anxiety, Depression, Panic Attack Endocrine/Metabolic: Reports: Diabetes, Type I, Diabetes, type II Oncologic: Reports: Pancreatic - Caffeine Use Caffeine Use: Reports: Coffee ED ROS GENERAL - Review of Systems Review Of Systems: ROS reveals no pertinent complaints other than HPI. ED EXAM, GENERAL - Physical Exam Exam: See Below (See dictation) Course - Vital Signs Last Recorded V/S: Last Vital Signs Temp 36.2 C 11/26/18 01:15 Pulse 97 11/26/18 03:57 Resp 18 11/26/18 03:57 BP 91/48 L 11/26/18 03:57 Pulse Ox 95 11/26/18 03:57 - Orders/Labs/Meds Orders: Active Orders 24 hr Category Date Time Status Cardiac Monitoring [RC] . DIRECTED Care 11/26/18 01:29 Active EKG Documentation Completion [RC] STAT Care 11/26/18 01:29 Active Oxygen Therapy, ED [RC] ASDIRECTED Care 11/26/18 01:29 Active Pulse Oximetry [RC] ASDIRECTED Care 11/26/18 01:29 Active Sodium Chloride 0.9% [Normal Saline] 1,000 ml Med 11/26/18 04:00 Active IV ASDIRECTED Sodium Chloride 0.9% [Saline Flush] Med 11/26/18 01:30 Active 10 ml FLUSH ASDIRECTED PRN Sodium Chloride 0.9% [Saline Flush] Med 11/26/18 01:30 Active 2.5 ml FLUSH ASDIRECTED PRN Saline Lock Insert [OM.PC] Stat Oth 11/26/18 01:29 Ordered Medication Orders Sodium Chloride (Normal Saline) 1,000 mls @ 999 mls/hr IV ASDIRECTED SHONDA Last Admin: 11/26/18 03:56 Dose: 999 mls/hr Sodium Chloride (Saline Flush) 10 ml FLUSH ASDIRECTED PRN PRN Reason: Keep Vein Open Sodium Chloride (Saline Flush) 2.5 ml FLUSH ASDIRECTED PRN PRN Reason: Keep Vein Open Labs: Laboratory Tests 11/26/18 11/26/18 11/26/18 Range/Units 01:15 01:15 01:15 WBC (4.0-11.0) K/uL RBC (4.30-5.90) M/uL Hgb (12.0-16.0) g/dL Hct (36.0-46.0) % MCV (80.0-98.0) fL MCH (27.0-32.0) pg MCHC (31.0-37.0) g/dL RDW Std Deviation (28.0-62.0) fl RDW Coeff of [place] (11.0-15.0) % Plt Count (150-400) K/uL MPV (7.40-12.00) fL Neut % (Auto) (48.0-80.0) % Lymph % (Auto) (16.0-40.0) % Pine % (Auto) (0.0-15.0) % Eos % (Auto) (0.0-7.0) % Baso % (Auto) (0.0-1.5) % Neut # (Auto) (1.4-5.7) K/uL Lymph # (Auto) (0.6-2.4) K/uL Pine # (Auto) (0.0-0.8) K/uL Eos # (Auto) (0.0-0.7) K/uL Baso # (Auto) (0.0-0.1) K/uL Nucleated RBC % /100WBC Nucleated RBCs # K/uL INR Sodium (136-145) mmol/L Potassium (3.5-5.1) mmol/L Chloride (98-107) mmol/L Carbon Dioxide (21.0-32.0) mmol/L BUN (7.0-18.0) mg/dL Creatinine (0.6-1.0) mg/dL Est Cr Clr Drug Dosing mL/min Estimated GFR (MDRD) ml/min Glucose (74-106) mg/dL Calcium (8.5-10.1) mg/dL Magnesium (1.8-2.4) mg/dL Total Bilirubin (0.2-1.0) mg/dL AST (15-37) IU/L ALT (14-63) IU/L Alkaline Phosphatase (46-116) U/L Total Protein (6.4-8.2) g/dL Albumin (3.4-5.0) g/dL Globulin (2.6-4.0) g/dL Albumin/Globulin Ratio (0.9-1.6) TSH 3rd Generation (0.36-3.74) uIU/mL Urine Color YELLOW Urine Appearance CLEAR Urine pH 5.5 (5.0-8.0) Ur Specific [place] <= 1.005 (1.001-1.035) Urine Protein NEGATIVE (NEGATIVE) mg/dL Urine Glucose (UA) NEGATIVE (NEGATIVE) mg/dL Urine Ketones NEGATIVE (NEGATIVE) mg/dL Urine Occult Blood NEGATIVE (NEGATIVE) Urine Nitrite NEGATIVE (NEGATIVE) Urine Bilirubin NEGATIVE (NEGATIVE) Urine Urobilinogen 0.2 (<2.0) EU/dL Ur Leukocyte Esterase NEGATIVE (NEGATIVE) Urine HCG, Qual NEGATIVE (NEGATIVE) Salicylates (0-20) mg/dL Urine Opiates Screen NEGATIVE (NEGATIVE) Ur Oxycodone Screen NEGATIVE (NEGATIVE) Urine Methadone Screen NEGATIVE (NEGATIVE) Acetaminophen ug/mL Ur Barbiturates Screen NEGATIVE (NEGATIVE) Ur Phencyclidine Scrn NEGATIVE (NEGATIVE) Ur Amphetamine Screen NEGATIVE (NEGATIVE) U Methamphetamines Scrn NEGATIVE (NEGATIVE) U Benzodiazepines Scrn NEGATIVE (NEGATIVE) U Cocaine Metab Screen NEGATIVE (NEGATIVE) U Marijuana (THC) Screen NEGATIVE (NEGATIVE) Ethyl Alcohol mg/dL 11/26/18 11/26/18 11/26/18 Range/Units 02:03 02:03 02:03 WBC 10.12 (4.0-11.0) K/uL RBC 4.50 (4.30-5.90) M/uL Hgb 14.3 (12.0-16.0) g/dL Hct 41.7 (36.0-46.0) % MCV 92.7 (80.0-98.0) fL MCH 31.8 (27.0-32.0) pg MCHC 34.3 (31.0-37.0) g/dL RDW Std Deviation 45.5 (28.0-62.0) fl RDW Coeff of [place] 14 (11.0-15.0) % Plt Count 147 L (150-400) K/uL MPV 12.80 H (7.40-12.00) fL Neut % (Auto) 63.7 (48.0-80.0) % Lymph % (Auto) 28.9 (16.0-40.0) % Pine % (Auto) 5.4 (0.0-15.0) % Eos % (Auto) 1.7 (0.0-7.0) % Baso % (Auto) 0.3 (0.0-1.5) % Neut # (Auto) 6.5 H (1.4-5.7) K/uL Lymph # (Auto) 2.9 H (0.6-2.4) K/uL Pine # (Auto) 0.6 (0.0-0.8) K/uL Eos # (Auto) 0.2 (0.0-0.7) K/uL Baso # (Auto) 0.0 (0.0-0.1) K/uL Nucleated RBC % 0.0 /100WBC Nucleated RBCs # 0 K/uL INR 0.94 Sodium 134 L (136-145) mmol/L Potassium 3.4 L (3.5-5.1) mmol/L Chloride 99 (98-107) mmol/L Carbon Dioxide 21.2 (21.0-32.0) mmol/L BUN 9 (7.0-18.0) mg/dL Creatinine 0.8 (0.6-1.0) mg/dL Est Cr Clr Drug Dosing 69.16 mL/min Estimated GFR (MDRD) > 60.0 ml/min Glucose 145 H (74-106) mg/dL Calcium 8.6 (8.5-10.1) mg/dL Magnesium 1.8 (1.8-2.4) mg/dL Total Bilirubin 0.2 (0.2-1.0) mg/dL AST 30 (15-37) IU/L ALT 50 (14-63) IU/L Alkaline Phosphatase 59 (46-116) U/L Total Protein 7.1 (6.4-8.2) g/dL Albumin 3.9 (3.4-5.0) g/dL Globulin 3.2 (2.6-4.0) g/dL Albumin/Globulin Ratio 1.2 (0.9-1.6) TSH 3rd Generation 14.28 H (0.36-3.74) uIU/mL Urine Color Urine Appearance Urine pH (5.0-8.0) Ur Specific [place] (1.001-1.035) Urine Protein (NEGATIVE) mg/dL Urine Glucose (UA) (NEGATIVE) mg/dL Urine Ketones (NEGATIVE) mg/dL Urine Occult Blood (NEGATIVE) Urine Nitrite (NEGATIVE) Urine Bilirubin (NEGATIVE) Urine Urobilinogen (<2.0) EU/dL Ur Leukocyte Esterase (NEGATIVE) Urine HCG, Qual (NEGATIVE) Salicylates 4.2 (0-20) mg/dL Urine Opiates Screen (NEGATIVE) Ur Oxycodone Screen (NEGATIVE) Urine Methadone Screen (NEGATIVE) Acetaminophen <2.0 ug/mL Ur Barbiturates Screen (NEGATIVE) Ur Phencyclidine Scrn (NEGATIVE) Ur Amphetamine Screen (NEGATIVE) U Methamphetamines Scrn (NEGATIVE) U Benzodiazepines Scrn (NEGATIVE) U Cocaine Metab Screen (NEGATIVE) U Marijuana (THC) Screen (NEGATIVE) Ethyl Alcohol 194 mg/dL Meds: Medications Generic Name Dose Route Start Last Admin Trade Name Freq PRN Reason Stop Dose Admin Sodium Chloride 1,000 mls @ 999 mls/hr 11/26/18 04:00 11/26/18 03:56 Normal Saline IV 999 mls/hr ASDIRECTED SHONDA Administration Sodium Chloride 10 ml 11/26/18 01:30 Saline Flush FLUSH ASDIRECTED PRN Keep Vein Open Sodium Chloride 2.5 ml 11/26/18 01:30 Saline Flush FLUSH ASDIRECTED PRN Keep Vein Open Discontinued Medications Generic Name Dose Route Start Last Admin Trade Name Freq PRN Reason Stop Dose Admin Sodium Chloride 1,000 mls @ 999 mls/hr 11/26/18 01:30 11/26/18 02:08 Normal Saline IV 11/26/18 02:30 999 mls/hr STAT ONE Administration Sodium Chloride 1,000 mls @ 999 mls/hr 11/26/18 02:53 11/26/18 03:07 Normal Saline IV 11/26/18 03:53 999 mls/hr STAT ONE Administration Ondansetron HCl 4 mg 11/26/18 01:30 11/26/18 02:08 Zofran IVPUSH 11/26/18 01:31 4 mg ONETIME ONE Administration Departure - Departure Time of Disposition: 04:13 Disposition: DC/Tfer to Acute Hospital 02 Condition: Good Clinical Impression: Intentional drug overdose Qualifiers: Encounter type: initial encounter Qualified Code(s): T50.902A - Poisoning by unspecified drugs, medicaments and biological substances, intentional self-harm , initial encounter Hypotension Qualifiers: Hypotension type: unspecified hypotension type Qualified Code(s): I95.9 - Hypotension, unspecified - Discharge Information Referrals: Kasi Gonzalez MD [Primary Care Provider] - Forms: ED Department Discharge - My Orders Last 24 Hours: My Active Orders 11/26/18 01:29 Cardiac Monitoring [RC] . DIRECTED EKG Documentation Completion [RC] STAT Oxygen Therapy, ED [RC] ASDIRECTED Pulse Oximetry [RC] ASDIRECTED Saline Lock Insert [OM.PC] Stat 11/26/18 01:30 Sodium Chloride 0.9% [Saline Flush] 10 ml FLUSH ASDIRECTED PRN Sodium Chloride 0.9% [Saline Flush] 2.5 ml FLUSH ASDIRECTED PRN 11/26/18 04:00 Sodium Chloride 0.9% [Normal Saline] 1,000 ml IV ASDIRECTED - Assessment/Plan Last 24 Hours: My Active Orders 11/26/18 01:29 Cardiac Monitoring [RC] . DIRECTED EKG Documentation Completion [RC] STAT Oxygen Therapy, ED [RC] ASDIRECTED Pulse Oximetry [RC] ASDIRECTED Saline Lock Insert [OM.PC] Stat 11/26/18 01:30 Sodium Chloride 0.9% [Saline Flush] 10 ml FLUSH ASDIRECTED PRN Sodium Chloride 0.9% [Saline Flush] 2.5 ml FLUSH ASDIRECTED PRN 11/26/18 04:00 Sodium Chloride 0.9% [Normal Saline] 1,000 ml IV ASDIRECTED
[2018-11-26 02:31] LABS: ACETAMINOPHEN <2.0 ug/mL
[2018-11-26 02:40] LABS: CHLORIDE,CL 99 mmol/L (98-107); SODIUM,NA 134 mmol/L (136-145)
[2018-11-26] MEDS ORDERED: Sodium Chloride 0.9% 1,000 ML IV SCH (04:00)
[2018-11-26 04:44] VITALS: BP 91/43
== END 2018-11-26 04:55 ==
LOC: MW.ED 01:11
DX: T46.4X2A Poisoning by angiotensin-converting-enzyme inhibitors, intentional self-harm, initial encounter (principal); I95.2 Hypotension due to drugs; M19.90 Unspecified osteoarthritis, unspecified site; E11.9 Type 2 diabetes mellitus without complications; I10 Essential (primary) hypertension; E66.9 Obesity, unspecified; F41.9 Anxiety disorder, unspecified; F32.9 Major depressive disorder, single episode, unspecified; E03.9 Hypothyroidism, unspecified; Z98.890 Other specified postprocedural states; Z90.49 Acquired absence of other specified parts of digestive tract; Z88.8 Allergy status to other drugs, medicaments and biological substances; Z79.84 Long term (current) use of oral hypoglycemic drugs; Z79.899 Other long term (current) drug therapy
CPT/HCPCS: 80053; 80305; 81003; 81025; 82962; 83735; 84443; 85025; 85610; 93005; 96361; 96374; 99285; G0480; J2405; J7040

== ENCOUNTER 2019-01-06 09:06 | Emergency (ER) | payer OTHER ==
[2019-01-06] MEDS ORDERED: Ketorolac 60 MG/2 ML SDV IM ONE (09:40)
--- NOTE | 2019-01-06 09:44 | EDM.PDOC ---
ED HPI GENERAL MEDICAL PROBLEM - General Chief Complaint: Abdominal Pain Stated Complaint: SIDE PAIN Time Seen by Provider: 01/06/19 09:38 - History of Present Illness INITIAL COMMENTS - FREE TEXT/NARRATIVE: HISTORY AND PHYSICAL: History of present illness: Patient 38-year-old white female who presents with concern of left-sided abdominal pain worse with movement that started her last 48 hours she denies trauma denies urinary symptoms denies fever chills denies other concern she has had prior cholecystectomy she denies any chance of Review of systems: As per history of present illness and below otherwise all systems reviewed and negative. Past medical history: As per history of present illness and as reviewed below otherwise noncontributory. Surgical history: As per history of present illness and as reviewed below otherwise noncontributory. Social history: No reported history of drug or alcohol abuse. Family history: As per history of present illness and as reviewed below otherwise noncontributory. Physical exam: HEENT: Atraumatic, normocephalic, pupils reactive, negative for conjunctival pallor or scleral icterus, mucous membranes moist, throat clear, neck supple, nontender, trachea midline. Lungs: Clear to auscultation, breath sounds equal bilaterally, chest nontender. Heart: S1S2, regular, negative for clicks, rubs, or JVD. Abdomen: Soft, nondistended, nontender. Negative for masses or hepatosplenomegaly. Negative for costovertebral tenderness. Pelvis: Stable nontender. Genitourinary: Deferred. Rectal: Deferred. Extremities: Atraumatic, negative for cords or calf pain. Neurovascular unremarkable. Neuro: Awake, alert, oriented. Cranial nerves II through XII unremarkable. Cerebellum unremarkable. Motor and sensory unremarkable throughout. Exam nonfocal. Diagnostics: CBC CMP lipase UA acute abdominal series Therapeutics: Toradol 60 mg IM Impression: #1 left-sided abdominal pain Definitive disposition and diagnosis as appropriate pending reevaluation and review of above. Left Thoracic Pain Score (Numeric/FACES): 4 - Related Data Allergies Allergy/AdvReac Type Severity Reaction Status Date / Time piperacillin sodium AdvReac Nausea and Verified 01/06/19 09:47 [From Zosyn] Vomiting tazobactam sodium AdvReac Nausea and Verified 01/06/19 09:47 [From Zosyn] Vomiting Home Meds: Home Meds Enalapril Maleate [Vasotec] 5 mg PO BEDTIME 10/30/13 [History] Furosemide [Lasix] 20 mg PO DAILY 10/30/13 [History] Gabapentin [Neurontin] 300 mg PO BID 10/30/13 [History] metFORMIN [Glucophage] 1,000 mg PO BIDMEALS 03/01/15 [History] Citalopram [Celexa] 60 mg PO BEDTIME 10/13/15 [History] Levothyroxine Sodium [Synthroid] 175 mcg PO ACBREAKFAST 10/14/15 [History] Fenofibrate 48 mg PO DAILY 05/12/16 [History] Potassium Chloride 10 meq PO DAILY 05/12/16 [History] Canagliflozin [Invokana] 300 mg PO DAILY 01/12/17 [History] Liraglutide [Victoza 3-Gaudencio] 0.6 mg SQ DAILY 11/25/17 [History] Past Medical History HEENT History: Reports: None Cardiovascular History: Reports: High Cholesterol, Hypertension Respiratory History: Reports: Asthma, COPD, Pneumonia, Recurrent, Sleep Apnea, Other (See Below) Other Respiratory History: uses BiPAP at home Gastrointestinal History: Reports: GERD, Other (See Below) Genitourinary History: Reports: 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) Musculoskeletal History: Reports: Arthritis Neurological History: Reports: None Psychiatric History: Reports: Anxiety, Bipolar, Depression, Suicide Attempt Other Psychiatric History: mood disorder, borderline personality disorder Endocrine/Metabolic History: Reports: Diabetes, Type II, Hypothyroidism, Obesity /BMI 30+ Hematologic History: Reports: None Immunologic History: Reports: None Oncologic (Cancer) History: Reports: None Dermatologic History: Reports: Cellulitis, Other (See Below) Other Dermatologic History: skin abcess/infections - Infectious Disease History Infectious Disease History: Reports: Chicken Pox - Past Surgical History Head Surgeries/Procedures: Reports: None HEENT Surgical History: Reports: Adenoidectomy, Tonsillectomy GI Surgical History: Reports: Cholecystectomy Musculoskeletal Surgical History: Reports: None Social & Family History - Family History Family Medical History: Noncontributory Cardiac: Reports: High Cholesterol, Other (See Below) Other Cardiac Family History: heart attack Respiratory: Reports: Asthma, COPD GI: Reports: None : Reports: None OBGYN: Reports: Musculoskeletal: Reports: Arthritis Neurological: Reports: Alzheimers Disease, CVA Psychiatric: Reports: Anxiety, Depression, Panic Attack Endocrine/Metabolic: Reports: Diabetes, Type I, Diabetes, type II Oncologic: Reports: Pancreatic - Caffeine Use Caffeine Use: Reports: Coffee ED ROS GENERAL - Review of Systems Review Of Systems: ROS reveals no pertinent complaints other than HPI. ED EXAM, GENERAL - Physical Exam Exam: See Below (See dictation) Course - Vital Signs Last Recorded V/S: Last Vital Signs Temp 36.3 C 01/06/19 09:44 Pulse 93 01/06/19 09:44 Resp 18 01/06/19 09:44 BP 135/67 01/06/19 09:44 Pulse Ox 96 01/06/19 09:44 - Orders/Labs/Meds Labs: Laboratory Tests 01/06/19 01/06/19 01/06/19 Range/Units 09:52 09:52 10:02 WBC 6.59 (4.0-11.0) K/uL RBC 4.64 (4.30-5.90) M/uL Hgb 14.9 (12.0-16.0) g/dL Hct 43.5 (36.0-46.0) % MCV 93.8 (80.0-98.0) fL MCH 32.1 H (27.0-32.0) pg MCHC 34.3 (31.0-37.0) g/dL RDW Std Deviation 46.3 (28.0-62.0) fl RDW Coeff of [place] 14 (11.0-15.0) % Plt Count 139 L (150-400) K/uL MPV 13.10 H (7.40-12.00) fL Neut % (Auto) 71.7 (48.0-80.0) % Lymph % (Auto) 19.1 (16.0-40.0) % [place] % (Auto) 6.2 (0.0-15.0) % Eos % (Auto) 2.4 (0.0-7.0) % Baso % (Auto) 0.6 (0.0-1.5) % Neut # (Auto) 4.7 (1.4-5.7) K/uL Lymph # (Auto) 1.3 (0.6-2.4) K/uL [place] # (Auto) 0.4 (0.0-0.8) K/uL Eos # (Auto) 0.2 (0.0-0.7) K/uL Baso # (Auto) 0.0 (0.0-0.1) K/uL Nucleated RBC % 0.0 /100WBC Nucleated RBCs # 0 K/uL Sodium 140 (136-145) mmol/L Potassium 4.3 (3.5-5.1) mmol/L Chloride 103 (98-107) mmol/L Carbon Dioxide 24.8 (21.0-32.0) mmol/L BUN 13 (7.0-18.0) mg/dL Creatinine 0.9 (0.6-1.0) mg/dL Est Cr Clr Drug Dosing 60.88 mL/min Estimated GFR (MDRD) > 60.0 ml/min Glucose 138 H (74-106) mg/dL Calcium 9.4 (8.5-10.1) mg/dL Total Bilirubin 0.4 (0.2-1.0) mg/dL AST 37 (15-37) IU/L ALT 63 (14-63) IU/L Alkaline Phosphatase 60 (46-116) U/L Total Protein 7.4 (6.4-8.2) g/dL Albumin 3.9 (3.4-5.0) g/dL Globulin 3.5 (2.6-4.0) g/dL Albumin/Globulin Ratio 1.1 (0.9-1.6) Lipase 171 (73-393) U/L Urine Color YELLOW Urine Appearance SLT CLOUDY Urine pH 5.0 (5.0-8.0) Ur Specific [place] 1.010 (1.001-1.035) Urine Protein NEGATIVE (NEGATIVE) mg/dL Urine Glucose (UA) >=1000 (NEGATIVE) mg/dL Urine Ketones NEGATIVE (NEGATIVE) mg/dL Urine Occult Blood LARGE H (NEGATIVE) Urine Nitrite NEGATIVE (NEGATIVE) Urine Bilirubin NEGATIVE (NEGATIVE) Urine Urobilinogen 0.2 (<2.0) EU/dL Ur Leukocyte Esterase NEGATIVE (NEGATIVE) Urine RBC 10-20 (0-2/HPF) Urine WBC 0-2 (0-5/HPF) Ur Epithelial Cells FEW (NONE-FEW) Urine Bacteria FEW (NEGATIVE) Meds: Medications Discontinued Medications Generic Name Dose Route Start Last Admin Trade Name Freq PRN Reason Stop Dose Admin Ketorolac Tromethamine 60 mg 01/06/19 09:40 01/06/19 10:01 Toradol IM 01/06/19 09:41 60 mg ONETIME ONE Administration Departure - Departure Time of Disposition: 22:13 Disposition: Home, Self-Care 01 Clinical Impression: Abdominal pain - Discharge Information Instructions: Nausea and Vomiting, Adult, [id number], Abdominal Pain, Adult, [id number] Referrals: PCP,Unknown [Primary Care Provider] - Forms: ED Department Discharge
[2019-01-06 09:47] VITALS: BP 135/67
[2019-01-06 10:19] LABS: CHLORIDE,CL 103 mmol/L (98-107); SODIUM,NA 140 mmol/L (136-145)
--- NOTE | 2019-01-06 11:15 | CR ---
Indication: Abdominal pain. Technique: AP supine and upright views of the abdomen and pelvis were obtained. Comparison: None Findings: The heart is normal in size. The lungs are clear. No infiltrate, pleural effusion, or pneumothorax is identified. Surgical clips are identified in the right upper quadrant. A radiopacity is identified overlying the right iliac crest, most likely within the colon. Impression: Nonobstructed bowel-gas pattern. No free air. Dictated by Inez Hinojosa MD @ Jan 06 2019 11:13AM Signed by Dr. Inez Hinojosa @ Jan 06 2019 11:14AM
== END 2019-01-06 11:05 | disposition home or self-care (01) ==
LOC: MW.ED 09:06
DX: R10.9 Unspecified abdominal pain (principal); E11.9 Type 2 diabetes mellitus without complications; E66.9 Obesity, unspecified; I10 Essential (primary) hypertension; M19.90 Unspecified osteoarthritis, unspecified site; E03.9 Hypothyroidism, unspecified; F41.9 Anxiety disorder, unspecified; Z90.49 Acquired absence of other specified parts of digestive tract; Z88.1 Allergy status to other antibiotic agents; Z79.84 Long term (current) use of oral hypoglycemic drugs; Z79.899 Other long term (current) drug therapy; Z98.890 Other specified postprocedural states
CPT/HCPCS: 36415; 74022; 80053; 81001; 83690; 85025; 96372; 99284; J1885

== ENCOUNTER 2019-03-27 07:24 | Emergency (ER) | payer OTHER ==
[2019-03-27] MEDS ORDERED: Albuterol/Ipratropium 3.0-0.5 MG/3 ML Neb Soln NEB ONE (07:38)
[2019-03-27] MEDS ORDERED: Albuterol/Ipratropium 3.0-0.5 MG/3 ML Neb Soln ONE (07:40)
[2019-03-27] MEDS ORDERED: predniSONE 20 MG Tab PO ONE (07:46)
--- NOTE | 2019-03-27 07:52 | EDM.PDOC ---
ED HPI GENERAL MEDICAL PROBLEM - General Chief Complaint: Respiratory Problem Stated Complaint: SHORTNESS OF BREATH, COPD Time Seen by Provider: 03/27/19 07:47 Source of Information: Reports: Patient History Limitations: Reports: No Limitations - History of Present Illness INITIAL COMMENTS - FREE TEXT/NARRATIVE: patient is a 38 y/o female w/ PMH of of COPD, c.diff, presenting today w/ worseing productive cough, chest congestion and dyspnea w/ exertion. Cough began getting worse 3-days earlier but today she woke up w/ difficulty breathing. Denies any chest pain but does endorse some tightness in chest from all the coughing. Endorses 1/2 PPD tobacco abuse > 10 years. Used OTC Mucinex w / minimal relief. Completed steroid taper 10 days prior w/o full resolution of symptoms. Onset: Today - Related Data Allergies Allergy/AdvReac Type Severity Reaction Status Date / Time piperacillin sodium AdvReac Nausea and Verified 03/27/19 07:39 [From Zosyn] Vomiting tazobactam sodium AdvReac Nausea and Verified 03/27/19 07:39 [From Zosyn] Vomiting Home Meds: Home Meds Enalapril Maleate [Vasotec] 5 mg PO BEDTIME 10/30/13 [History] Furosemide [Lasix] 20 mg PO DAILY 10/30/13 [History] Gabapentin [Neurontin] 300 mg PO BID 10/30/13 [History] metFORMIN [Glucophage] 1,000 mg PO BIDMEALS 03/01/15 [History] Citalopram [Celexa] 60 mg PO BEDTIME 10/13/15 [History] Levothyroxine Sodium [Synthroid] 175 mcg PO ACBREAKFAST 10/14/15 [History] Fenofibrate 48 mg PO DAILY 05/12/16 [History] Potassium Chloride 10 meq PO DAILY 05/12/16 [History] Canagliflozin [Invokana] 300 mg PO DAILY 01/12/17 [History] Liraglutide [Victoza 3-Gaudencio] 0.6 mg SQ DAILY 11/25/17 [History] predniSONE [Prednisone] 20 mg PO DAILY 5 Days #5 tablet 03/27/19 [Rx] Past Medical History HEENT History: Reports: None Cardiovascular History: Reports: High Cholesterol, Hypertension Respiratory History: Reports: Asthma, COPD, Pneumonia, Recurrent, Sleep Apnea, Other (See Below) Other Respiratory History: uses BiPAP at home Gastrointestinal History: Reports: GERD Genitourinary History: Reports: None 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 (See Below) Musculoskeletal History: Reports: Arthritis Neurological History: Reports: None Psychiatric History: Reports: Anxiety, Bipolar, Depression, Suicide Attempt Other Psychiatric History: mood disorder, borderline personality disorder Endocrine/Metabolic History: Reports: Diabetes, Type II, Hypothyroidism, Obesity /BMI 30+ Hematologic History: Reports: None Immunologic History: Reports: None Oncologic (Cancer) History: Reports: None Dermatologic History: Reports: Cellulitis, Other (See Below) Other Dermatologic History: skin abcess/infections - Infectious Disease History Infectious Disease History: Reports: None - Past Surgical History Head Surgeries/Procedures: Reports: None HEENT Surgical History: Reports: Adenoidectomy, Tonsillectomy GI Surgical History: Reports: Cholecystectomy Musculoskeletal Surgical History: Reports: None Social & Family History - Family History Family Medical History: Noncontributory Cardiac: Reports: High Cholesterol, Other (See Below) Other Cardiac Family History: heart attack Respiratory: Reports: Asthma, COPD GI: Reports: None : Reports: None OBGYN: Reports: Musculoskeletal: Reports: Arthritis Neurological: Reports: Alzheimers Disease, CVA Psychiatric: Reports: Anxiety, Depression, Panic Attack Endocrine/Metabolic: Reports: Diabetes, Type I, Diabetes, type II Oncologic: Reports: Pancreatic - Tobacco Use Smoking Status *Q: Current Every Day Smoker Years of Tobacco use: 25 Packs/Tins Daily: 0.5 - Caffeine Use Caffeine Use: Reports: Coffee - Recreational Drug Use Recreational Drug Use: No ED ROS GENERAL - Review of Systems Review Of Systems: See Below Constitutional: Reports: Chills. Denies: Fever, Malaise, Weakness HEENT: Reports: Throat Pain. Denies: Ear Pain Respiratory: Reports: Shortness of Breath, Wheezing, Cough, Sputum. Denies: Pleuritic Chest Pain, Hemoptysis Cardiovascular: Denies: Chest Pain Endocrine: Denies: Fatigue GI/Abdominal: Denies: Abdominal Pain, Constipation, Diarrhea Neurological: Denies: Confusion, Dizziness, Headache Psychiatric: Denies: Agitation, Anxiety, Confusion ED EXAM, GENERAL - Physical Exam Exam: See Below Exam Limited By: No Limitations General Appearance: Alert, Mild Distress Ears: Normal External Exam Head: Atraumatic, Normocephalic Respiratory/Chest: Decreased Breath Sounds, Rhonchi, Wheezing, Prolonged Expiration Cardiovascular: Normal Peripheral Pulses, Regular Rate, Rhythm, No Edema GI/Abdominal: Normal Bowel Sounds, Soft, Non-Tender Extremities: Normal Inspection Neurological: Alert, Oriented Psychiatric: Normal Affect, Normal Mood Skin Exam: Warm, Intact Course - Vital Signs Last Recorded V/S: Last Vital Signs Temp 96.8 F 03/27/19 07:36 Pulse 88 03/27/19 08:10 Resp 18 03/27/19 08:10 BP 125/67 03/27/19 07:36 Pulse Ox 97 03/27/19 08:10 - Orders/Labs/Meds Orders: Active Orders 24 hr Category Date Time Status EKG 12 Lead [EKG Documentation Completion] [RC] STAT Care 03/27/19 07:35 Active RT Aerosol Therapy [RC] ASDIRECTED Care 03/27/19 07:38 Active TROPONIN I [CHEM] Stat Lab 03/27/19 07:53 Ordered Meds: Medications Discontinued Medications Generic Name Dose Route Start Last Admin Trade Name Ingrid PRN Reason Stop Dose Admin Albuterol/Ipratropium 3 ml 03/27/19 07:38 03/27/19 08:10 Duoneb 3.0-0.5 Mg/3 Ml NEB 03/27/19 07:39 Not Given ONETIME ONE Albuterol/Ipratropium Confirm 03/27/19 07:40 03/27/19 07:46 Duoneb 3.0-0.5 Mg/3 Ml Administered 03/27/19 07:41 3 ml Dose Administration 3 ml .ROUTE .STK-MED ONE Prednisone 60 mg 03/27/19 07:46 03/27/19 08:09 Prednisone PO 03/27/19 07:47 60 mg ONETIME ONE Administration - Re-Assessments/Exams Free Text/Narrative Re-Assessment/Exam: Repeat examination [id number] treatment : improved; moving air-well; no respiratory distress. Wheezing resolved. pt. requesting to go home. 03/27/19 08:28 CXR: no acute cardio-pulmonary pathology noted 03/27/19 08:31 Departure - Departure Time of Disposition: 08:29 Disposition: Home, Self-Care 01 Condition: Good Clinical Impression: Wheezing - Discharge Information Prescriptions: predniSONE [Prednisone] 20 mg PO DAILY 5 Days #5 tablet Instructions: Chronic Obstructive Pulmonary Disease Exacerbation Referrals: PCP,None [Primary Care Provider] - Forms: ED Department Discharge - My Orders Last 24 Hours: My Active Orders 03/27/19 07:38 RT Aerosol Therapy [RC] ASDIRECTED 03/27/19 07:53 TROPONIN I [CHEM] Stat - Assessment/Plan Last 24 Hours: My Active Orders 03/27/19 07:38 RT Aerosol Therapy [RC] ASDIRECTED 03/27/19 07:53 TROPONIN I [CHEM] Stat Assessment:: 1.COPD exacerbation: mild Plan: Prednisone daily: 20 mg daily
--- NOTE | 2019-03-27 08:29 | CR ---
INDICATION: Shortness of breath. COMPARISON: Chest radiograph 03/28/2018. There is report of a chest radiograph from 01/08/2019, however images are not available for review. TECHNIQUE: Two view chest. FINDINGS: No significant change since prior exam. No focal consolidation, pleural effusion, or pneumothorax. Normal heart size and pulmonary vascularity. IMPRESSION: No acute cardiopulmonary findings. Dictated by Marla Gillespie MD @ Mar 27 2019 8:25AM Signed by Dr. Marla Gillespie @ Mar 27 2019 8:28AM
[2019-03-27 08:59] VITALS: BP 119/64; PULSE 83
== END 2019-03-27 08:47 | disposition home or self-care (01) ==
LOC: MW.ED 07:24
DX: R06.2 Wheezing (principal); J44.9 Chronic obstructive pulmonary disease, unspecified; I10 Essential (primary) hypertension; E11.9 Type 2 diabetes mellitus without complications; E66.9 Obesity, unspecified; E03.9 Hypothyroidism, unspecified; F32.9 Major depressive disorder, single episode, unspecified; F17.210 Nicotine dependence, cigarettes, uncomplicated; Z79.52 Long term (current) use of systemic steroids; Z79.84 Long term (current) use of oral hypoglycemic drugs; Z79.890 Hormone replacement therapy; Z79.899 Other long term (current) drug therapy; Z88.0 Allergy status to penicillin; Z68.44 Body mass index [BMI] 60.0-69.9, adult
CPT/HCPCS: 71046; 93005; 94640; 99285; A9270; J7620-GY

== ENCOUNTER 2019-06-03 07:07 | Emergency (ER) | payer MEDICAID ==
[2019-06-03] MEDS ORDERED: Benzonatate 100 MG Cap PO ONE (07:33)
[2019-06-03] MEDS ORDERED: Azithromycin 250 MG Tab PO ONE (07:34)
--- NOTE | 2019-06-03 07:45 | EDM.PDOC ---
ED HPI GENERAL MEDICAL PROBLEM - General Chief Complaint: Respiratory Problem Stated Complaint: SOB Time Seen by Provider: 06/03/19 07:20 Source of Information: Reports: Patient History Limitations: Reports: No Limitations - History of Present Illness INITIAL COMMENTS - FREE TEXT/NARRATIVE: This 38 year old female presents to the ED with a chief complaint of coughing with green sputum for the past two weeks. She also complains of generalized body aches. She denies any other symptoms. Onset: Gradual Duration: Getting Worse Severity: Moderate Worsens with: Reports: Breathing Associated Symptoms: Reports: cough w sputum (green sputum.) Generalized Body Aches Pain Score (Numeric/FACES): 2 - Related Data Allergies Allergy/AdvReac Type Severity Reaction Status Date / Time piperacillin sodium AdvReac Nausea and Verified 06/03/19 07:23 [From Zosyn] Vomiting tazobactam sodium AdvReac Nausea and Verified 06/03/19 07:23 [From Zosyn] Vomiting Home Meds: Home Meds Enalapril Maleate [Vasotec] 5 mg PO BEDTIME 10/30/13 [History] Furosemide [Lasix] 20 mg PO DAILY 10/30/13 [History] Gabapentin [Neurontin] 300 mg PO BID 10/30/13 [History] metFORMIN [Glucophage] 1,000 mg PO BIDMEALS 03/01/15 [History] Citalopram [Celexa] 60 mg PO BEDTIME 10/13/15 [History] Levothyroxine Sodium [Synthroid] 175 mcg PO ACBREAKFAST 10/14/15 [History] Fenofibrate 48 mg PO DAILY 05/12/16 [History] Potassium Chloride 10 meq PO DAILY 05/12/16 [History] Canagliflozin [Invokana] 300 mg PO DAILY 01/12/17 [History] Liraglutide [Victoza 3-Gaudencio] 0.6 mg SQ DAILY 11/25/17 [History] predniSONE [Prednisone] 20 mg PO DAILY 5 Days #5 tablet 03/27/19 [Rx] Azithromycin 250 mg PO Q12HR 7 Days #14 tablet 06/03/19 [Rx] Benzonatate 100 mg PO BID PRN 10 Days #20 capsule 06/03/19 [Rx] guaiFENesin/Dextromethorphan [Mucinex DM ER 1,200-60 MG] 1 tab PO BID 5 Days # 10 tbmp.12hr 06/03/19 [Rx] Past Medical History HEENT History: Reports: None Cardiovascular History: Reports: High Cholesterol, Hypertension Respiratory History: Reports: Asthma, COPD, Pneumonia, Recurrent, Sleep Apnea, Other (See Below) Other Respiratory History: uses BiPAP at home Gastrointestinal History: Reports: GERD Genitourinary History: Reports: None [employer]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 [employer] 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 (See Below) Musculoskeletal History: Reports: Arthritis Neurological History: Reports: None Psychiatric History: Reports: Anxiety, Bipolar, Depression, Suicide Attempt Other Psychiatric History: mood disorder, borderline personality disorder Endocrine/Metabolic History: Reports: Diabetes, Type II, Hypothyroidism, Obesity /BMI 30+ Hematologic History: Reports: None Immunologic History: Reports: None Oncologic (Cancer) History: Reports: None Dermatologic History: Reports: Cellulitis, Other (See Below) Other Dermatologic History: skin abcess/infections - Infectious Disease History Infectious Disease History: Reports: Chicken Pox, Mononucleosis - Past Surgical History Head Surgeries/Procedures: Reports: None HEENT Surgical History: Reports: Adenoidectomy, Tonsillectomy Cardiovascular Surgical History: Reports: None Respiratory Surgical History: Reports: None GI Surgical History: Reports: Cholecystectomy Musculoskeletal Surgical History: Reports: None Social & Family History - Family History Family Medical History: Noncontributory Cardiac: Reports: High Cholesterol, Other (See Below) Other Cardiac Family History: heart attack Respiratory: Reports: Asthma, COPD GI: Reports: None : Reports: None OBGYN: Reports: Musculoskeletal: Reports: Arthritis Neurological: Reports: Alzheimers Disease, CVA Psychiatric: Reports: Anxiety, Depression, Panic Attack Endocrine/Metabolic: Reports: Diabetes, Type I, Diabetes, type II Oncologic: Reports: Pancreatic - Tobacco Use Smoking Status *Q: Current Every Day Smoker Years of Tobacco use: 20 Packs/Tins Daily: 1 - Caffeine Use Caffeine Use: Reports: Soda - Recreational Drug Use Recreational Drug Use: No ED ROS GENERAL - Review of Systems Review Of Systems: See Below Constitutional: Reports: Malaise HEENT: Reports: No Symptoms Respiratory: Reports: Cough, Sputum (Green.) Cardiovascular: Reports: No Symptoms Endocrine: Reports: No Symptoms GI/Abdominal: Reports: No Symptoms : Reports: No Symptoms Musculoskeletal: Reports: No Symptoms Skin: Reports: No Symptoms Neurological: Reports: No Symptoms ED EXAM, GENERAL - Physical Exam Exam: See Below Exam Limited By: No Limitations General Appearance: Alert, WD/WN, No Apparent Distress Eye Exam: Bilateral Eye: EOMI, Normal Inspection, PERRL Ears: Normal External Exam, Normal Canal, Hearing Grossly Normal, Normal TMs Ear Exam: Bilateral Ear: Auricle Normal, Canal Normal, TM normal Nose: Normal Inspection, Normal Mucosa, No Blood Throat/Mouth: Normal Inspection, Normal Lips, Normal Teeth, Normal Gums, Normal Oropharynx, Normal Voice, No Airway Compromise Head: Atraumatic, Normocephalic Neck: Normal Inspection, Supple, Non-Tender, Full Range of Motion. No: Lymphadenopathy (L), Lymphadenopathy (R) Respiratory/Chest: No Respiratory Distress, Rhonchi (Mild rhonchi in the bases.) Cardiovascular: Normal Peripheral Pulses, Regular Rate, Rhythm, No Edema, No Gallop, No JVD, No Murmur, No Rub Peripheral Pulses: 3+: Dorsalis Pedis (L), Dorsalis Pedis (R), 4+: Carotid (L), Carotid (R), Radial (L), Radial (R) GI/Abdominal: Normal Bowel Sounds, Soft, Non-Tender, No Organomegaly, No Distention, No Abnormal Bruit, No Mass (Female) Exam: Normal External Exam, Normal Speculum Exam, Normal Bimanual Exam Back Exam: Normal Inspection, Full Range of Motion, NT Extremities: Normal Inspection, Normal Range of Motion, Non-Tender, Normal Capillary Refill, No Pedal Edema Neurological: Alert, Oriented, CN II-XII Intact, Normal Cognition, Normal Gait, Normal Reflexes, No Motor/Sensory Deficits Skin Exam: Warm, Dry, Intact, Normal Color, No Rash Lymphatic: No Adenopathy Course - Vital Signs Text/Narrative:: Review of chest x-ray (PA and lateral) is negative for acute pathology. Last Recorded V/S: Last Vital Signs Temp 97.1 F 06/03/19 07:18 Pulse 82 06/03/19 07:18 Resp 18 06/03/19 07:18 BP 143/88 H 06/03/19 07:18 Pulse Ox 97 06/03/19 07:18 - Orders/Labs/Meds Orders: Active Orders 24 hr Category Date Time Status Chest 2V [CR] Stat Exams 06/03/19 07:31 Taken Meds: Medications Discontinued Medications Generic Name Dose Route Start Last Admin Trade Name Freq PRN Reason Stop Dose Admin Azithromycin 250 mg 06/03/19 07:34 Zithromax PO 06/03/19 07:35 Q24H ONE Benzonatate 200 mg 06/03/19 07:33 Tessalon Perles PO 06/03/19 07:34 ONETIME ONE Departure - Departure Time of Disposition: 08:03 Disposition: Home, Self-Care 01 Condition: Good Clinical Impression: Bronchitis - Discharge Information *PRESCRIPTION DRUG MONITORING PROGRAM REVIEWED*: Yes *COPY OF PRESCRIPTION DRUG MONITORING REPORT IN PATIENT STEVENSON: Yes Instructions: Acute Bronchitis, Adult, Pdic-[id number], Shortness of Breath, Adult , [id number] Referrals: Kasi Gonzalez MD [Primary Care Provider] - Forms: ED Department Discharge Additional Instructions: Take all medications as directed. Drink plenty of clear liquids over the next two to three days. Rest for the next 24 hours. Return to the ED if your condition gets worse or should you have any additional concerns. The following information is given to patients seen in the emergency department who are being discharged to home. This information is to outline your options for follow-up care. We provide all patients seen in our emergency department with a follow-up referral. The need for follow-up, as well as the timing and circumstances, are variable depending upon the specifics of your emergency department visit. If you don't have a primary care physician on staff, we will provide you with a referral. We always advise you to contact your personal physician following an emergency department visit to inform them of the circumstance of the visit and for follow-up with them and/or the need for any referrals to a consulting specialist. The emergency department will also refer you to a specialist when appropriate. This referral assures that you have the opportunity for follow-up care with a specialist. All of these measure are taken in an effort to provide you with optimal care, which includes your follow-up. Under all circumstances we always encourage you to contact your private physician who remains a resource for coordinating your care. When calling for follow-up care, please make the office aware that this follow-up is from your recent emergency room visit. If for any reason you are refused follow-up, please contact the [facility] Emergency Department at and asked to speak to the emergency department charge nurse. Sepsis Event Note - Evaluation Sepsis Screening Result: No Definite Risk - Focused Exam Vital Signs: Vital Signs Temp Pulse Resp BP Pulse Ox 06/03/19 07:18 97.1 F 82 18 143/88 H 97 Date Exam was Performed: 06/03/19 Time Exam was Performed: 08:00 - My Orders Last 24 Hours: My Active Orders 06/03/19 07:31 Chest 2V [CR] Stat - Assessment/Plan Last 24 Hours: My Active Orders 06/03/19 07:31 Chest 2V [CR] Stat
[2019-06-03 08:26] VITALS: BP 124/67; PULSE 75
--- NOTE | 2019-06-03 08:28 | CR ---
Chest: 2 views of the chest were obtained. Comparison: Prior chest x-ray of 03/27/19. Heart size and mediastinum are normal. Lungs show slight increased markings are noted which appear chronic. Lungs otherwise are clear with no acute parenchymal change. Bony structures are unremarkable. Impression: 1. Lung markings slightly increased which appear stable. 2. Nothing acute is otherwise seen. Diagnostic code #2 This report was dictated in [place] Standard Time
== END 2019-06-03 08:26 | disposition home or self-care (01) ==
LOC: MW.ED 07:07
DX: J40 Bronchitis, not specified as acute or chronic (principal); F17.210 Nicotine dependence, cigarettes, uncomplicated; J44.9 Chronic obstructive pulmonary disease, unspecified; F31.9 Bipolar disorder, unspecified; Z79.899 Other long term (current) drug therapy; Z88.8 Allergy status to other drugs, medicaments and biological substances
CPT/HCPCS: 71046; 87804; 99285; A9270

== ENCOUNTER 2019-07-12 10:14 | Emergency (ER) | payer MEDICAID, OTHER ==
[2019-07-12] MEDS ORDERED: Sodium Chloride 0.9% 2.5 ML Syringe FLUSH PRN (10:18)
[2019-07-12] MEDS ORDERED: Sodium Chloride 0.9% 10 ML Syringe FLUSH PRN (10:18)
[2019-07-12 11:35] LABS: BLOOD UREA NITROGEN,BUN 13 mg/dL (7.0-18.0); CARBON DIOXIDE,CO2 26.1 mmol/L (21.0-32.0); CHLORIDE,CL 104 mmol/L (98-107); GLUCOSE RANDOM 142 mg/dL (74-106); LIPASE 150 U/L (73-393); POTASSIUM,K 4.4 mmol/L (3.5-5.1); SODIUM,NA 141 mmol/L (136-145)
[2019-07-12] MEDS ORDERED: Sodium Chloride 0.9% 1,000 ML IV ONE (11:43)
[2019-07-12] MEDS ORDERED: Aluminum Hydroxide/Magnesium Hydroxide/Simethicone Susp 30 ML Cup PO ONE (11:43)
[2019-07-12] MEDS ORDERED: Ondansetron 4 MG/2 ML SDV IVPUSH ONE (11:43)
[2019-07-12] MEDS ORDERED: Famotidine 20 MG/2 ML SDV IVPUSH ONE (11:43)
--- NOTE | 2019-07-12 13:17 | EDM.PDOC ---
ED [facility] GENERAL MEDICAL PROBLEM - General Chief Complaint: Abdominal Pain Stated Complaint: ABDOMINAL PAIN Time Seen by Provider: 07/12/19 13:13 Source of Information: Reports: Patient History Limitations: Reports: No Limitations - History of Present Illness INITIAL COMMENTS - FREE TEXT/NARRATIVE: Patient is a 38-year-old female past medical history of cholecystitis status post cholecystectomy over 15 years ago. Patient reports having several days of abdominal pain. Patient states the pain is isolated to the right upper quadrant. Pain is intermittent but is been progressively worsening. Patient denies any associated fevers, vomiting, diarrhea. Patient does report mild nausea. Patient states the pain is not similar to anything she has had before. Patient states she is still passing flatus. No other abdominal surgeries. No chest pain, back pain, shortness of breath Pmhx: Obesity Pshx: Cholecystectomy Family Hx: noncontributory Smoking history? Yes Etoh use? Socially Drug use? none In addition to that documented in the HPI above, the additional ROS was obtained : Constitutional: Denies fevers or chills Eyes: Denies vision changes ENMT: Denies sore throat CV: Denies chest pain Resp: Denies SOB GI: Denies vomiting or diarrhea : Denies painful urination MSK: Denies recent trauma Skin: Denies new rashes Neuro: Denies new numbness or tingling or weakness Endocrine: Denies unexpected weight loss Heme: Denies bleeding disorders I have reviewed the triage vital signs Const: Well nourished, well developed, appears stated age Eyes: PERRL, no conjunctival injection HENT: NCAT, Neck supple without meningismus CV: RRR, Warm, well-perfused extremities RESP: CTAB, Unlabored respiratory effort GI: Morbid obesity limits abdominal exam however it is soft, non-tender, non- distended, no masses MSK: No gross deformities appreciated Skin: Warm, dry. 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 Sensation and motor function of extremities grossly intact. Psych: Appropriate mood and affect Assessment and plan: Patient is a 38-year-old female presenting with abdominal pain. Patient's abdominal exam is non-concerning for an acute abdomen. Patient's labs are within normal limits. Patient has no evidence of elevated liver enzymes or white blood cell count to be concerning for infection. Patient given GI cocktail and feels symptomatic improvement. Patient will be discharged home with strict return precautions. Questions addressed and answered. Patient agrees with plan abodminal Pain Score (Numeric/FACES): 6 - Related Data Allergies Allergy/AdvReac Type Severity Reaction Status Date / Time piperacillin sodium AdvReac Nausea and Verified 07/12/19 10:48 [From Zosyn] Vomiting tazobactam sodium AdvReac Nausea and Verified 07/12/19 10:48 [From Zosyn] Vomiting Home Meds: Home Meds Enalapril Maleate [Vasotec] 5 mg PO BEDTIME 10/30/13 [History] Furosemide [Lasix] 20 mg PO DAILY 10/30/13 [History] Gabapentin [Neurontin] 300 mg PO BID 10/30/13 [History] metFORMIN [Glucophage] 1,000 mg PO BIDMEALS 03/01/15 [History] Citalopram [Celexa] 60 mg PO BEDTIME 10/13/15 [History] Levothyroxine Sodium [Synthroid] 225 mcg PO ACBREAKFAST 10/14/15 [History] Fenofibrate 48 mg PO DAILY 05/12/16 [History] Potassium Chloride 10 meq PO DAILY 05/12/16 [History] Liraglutide [Victoza 3-Gaudencio] 0.6 mg SQ DAILY 11/25/17 [History] Empagliflozin [Jardiance] PO DAILY 07/12/19 [History] Omeprazole 20 mg PO DAILY 07/12/19 [History] atorvaSTATin [Lipitor] 10 mg PO DAILY 07/12/19 [History] Past Medical History HEENT History: Reports: None Cardiovascular History: Reports: High Cholesterol Respiratory History: Reports: Asthma, COPD, Pneumonia, Recurrent, Sleep Apnea, Other (See Below) Other Respiratory History: uses BiPAP at home Gastrointestinal History: Reports: GERD Genitourinary History: Reports: None 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) Musculoskeletal History: Reports: Arthritis Neurological History: Reports: None Psychiatric History: Reports: Anxiety, Depression, Suicide Attempt Other Psychiatric History: mood disorder, borderline personality disorder Endocrine/Metabolic History: Reports: Diabetes, Type II, Hypothyroidism, Obesity /BMI 30+ Hematologic History: Reports: None Immunologic History: Reports: None Oncologic (Cancer) History: Reports: None Dermatologic History: Reports: Cellulitis, Other (See Below) Other Dermatologic History: skin abcess/infections - Infectious Disease History Infectious Disease History: Reports: Chicken Pox - Past Surgical History Head Surgeries/Procedures: Reports: None HEENT Surgical History: Reports: Adenoidectomy, Tonsillectomy Cardiovascular Surgical History: Reports: None Respiratory Surgical History: Reports: None GI Surgical History: Reports: Cholecystectomy Musculoskeletal Surgical History: Reports: None Social & Family History - Family History Family Medical History: Noncontributory Cardiac: Reports: High Cholesterol, Other (See Below) Other Cardiac Family History: heart attack Respiratory: Reports: Asthma, COPD GI: Reports: None : Reports: None OBGYN: Reports: Musculoskeletal: Reports: Arthritis Neurological: Reports: Alzheimers Disease, CVA Psychiatric: Reports: Anxiety, Depression, Panic Attack Endocrine/Metabolic: Reports: Diabetes, Type I, Diabetes, type II Oncologic: Reports: Pancreatic - Tobacco Use Smoking Status *Q: Current Every Day Smoker Years of Tobacco use: 25 Packs/Tins Daily: 0.5 - Caffeine Use Caffeine Use: Reports: Soda - Recreational Drug Use Recreational Drug Use: No ED ROS GENERAL - Review of Systems Review Of Systems: See Below ED EXAM, GI/ABD - Physical Exam Exam: See Below Course - Vital Signs Last Recorded V/S: Last Vital Signs Temp 35.9 C L 07/12/19 12:17 Pulse 81 07/12/19 12:17 Resp 20 07/12/19 12:17 BP 99/60 07/12/19 12:17 Pulse Ox 98 07/12/19 12:17 - Orders/Labs/Meds Orders: Active Orders 24 hr Category Date Time Status Glucose [Blood Glucose Check, Bedside] [RC] ONETIME Care 07/12/19 10:33 Active Sodium Chloride 0.9% [Saline Flush] Med 07/12/19 10:18 Active 10 ml FLUSH ASDIRECTED PRN Sodium Chloride 0.9% [Saline Flush] Med 07/12/19 10:18 Active 2.5 ml FLUSH ASDIRECTED PRN Saline Lock Insert [OM.PC] Stat Oth 07/12/19 10:18 Ordered Medication Orders Sodium Chloride (Saline Flush) 10 ml FLUSH ASDIRECTED PRN PRN Reason: Keep Vein Open Last Admin: 07/12/19 12:13 Dose: 10 ml Sodium Chloride (Saline Flush) 2.5 ml FLUSH ASDIRECTED PRN PRN Reason: Keep Vein Open Last Admin: 07/12/19 12:13 Dose: 2.5 ml Labs: Laboratory Tests 07/12/19 07/12/19 07/12/19 Range/Units 10:47 10:47 11:05 WBC 7.29 (4.0-11.0) K/uL RBC 4.18 L (4.30-5.90) M/uL Hgb 13.1 (12.0-16.0) g/dL Hct 39.6 (36.0-46.0) % MCV 94.7 (80.0-98.0) fL MCH 31.3 (27.0-32.0) pg MCHC 33.1 (31.0-37.0) g/dL RDW Std Deviation 45.7 (28.0-62.0) fl RDW Coeff of [place] 13 (11.0-15.0) % Plt Count 127 L (150-400) K/uL MPV 13.40 H (7.40-12.00) fL Neut % (Auto) 64.4 (48.0-80.0) % Lymph % (Auto) 26.2 (16.0-40.0) % [place] % (Auto) 6.6 (0.0-15.0) % Eos % (Auto) 2.3 (0.0-7.0) % Baso % (Auto) 0.5 (0.0-1.5) % Neut # (Auto) 4.7 (1.4-5.7) K/uL Lymph # (Auto) 1.9 (0.6-2.4) K/uL [place] # (Auto) 0.5 (0.0-0.8) K/uL Eos # (Auto) 0.2 (0.0-0.7) K/uL Baso # (Auto) 0.0 (0.0-0.1) K/uL Nucleated RBC % 0.0 /100WBC Nucleated RBCs # 0 K/uL Sodium 141 (136-145) mmol/L Potassium 4.4 (3.5-5.1) mmol/L Chloride 104 (98-107) mmol/L Carbon Dioxide 26.1 (21.0-32.0) mmol/L BUN 13 (7.0-18.0) mg/dL Creatinine 0.9 (0.6-1.0) mg/dL Est Cr Clr Drug Dosing 60.88 mL/min Estimated GFR (MDRD) > 60.0 ml/min Glucose 142 H (74-106) mg/dL POC Glucose (60-110) mg/dL Calcium 9.4 (8.5-10.1) mg/dL Total Bilirubin 0.3 (0.2-1.0) mg/dL AST 32 (15-37) IU/L ALT 59 (14-63) IU/L Alkaline Phosphatase 63 (46-116) U/L Total Protein 7.1 (6.4-8.2) g/dL Albumin 3.9 (3.4-5.0) g/dL Globulin 3.2 (2.6-4.0) g/dL Albumin/Globulin Ratio 1.2 (0.9-1.6) Lipase 150 (73-393) U/L Urine Color YELLOW Urine Appearance CLEAR Urine pH 5.0 (5.0-8.0) Ur Specific [place] >= 1.030 (1.001-1.035) Urine Protein NEGATIVE (NEGATIVE) mg/dL Urine Glucose (UA) NEGATIVE (NEGATIVE) mg/dL Urine Ketones NEGATIVE (NEGATIVE) mg/dL Urine Occult Blood NEGATIVE (NEGATIVE) Urine Nitrite NEGATIVE (NEGATIVE) Urine Bilirubin NEGATIVE (NEGATIVE) Urine Urobilinogen 0.2 (<2.0) EU/dL Ur Leukocyte Esterase NEGATIVE (NEGATIVE) Urine HCG, Qual (NEGATIVE) 07/12/19 07/12/19 Range/Units 11:05 11:32 WBC (4.0-11.0) K/uL RBC (4.30-5.90) M/uL Hgb (12.0-16.0) g/dL Hct (36.0-46.0) % MCV (80.0-98.0) fL MCH (27.0-32.0) pg MCHC (31.0-37.0) g/dL RDW Std Deviation (28.0-62.0) fl RDW Coeff of [place] (11.0-15.0) % Plt Count (150-400) K/uL MPV (7.40-12.00) fL Neut % (Auto) (48.0-80.0) % Lymph % (Auto) (16.0-40.0) % [place] % (Auto) (0.0-15.0) % Eos % (Auto) (0.0-7.0) % Baso % (Auto) (0.0-1.5) % Neut # (Auto) (1.4-5.7) K/uL Lymph # (Auto) (0.6-2.4) K/uL [place] # (Auto) (0.0-0.8) K/uL Eos # (Auto) (0.0-0.7) K/uL Baso # (Auto) (0.0-0.1) K/uL Nucleated RBC % /100WBC Nucleated RBCs # K/uL Sodium (136-145) mmol/L Potassium (3.5-5.1) mmol/L Chloride (98-107) mmol/L Carbon Dioxide (21.0-32.0) mmol/L BUN (7.0-18.0) mg/dL Creatinine (0.6-1.0) mg/dL Est Cr Clr Drug Dosing mL/min Estimated GFR (MDRD) ml/min Glucose (74-106) mg/dL POC Glucose 151 H (60-110) mg/dL Calcium (8.5-10.1) mg/dL Total Bilirubin (0.2-1.0) mg/dL AST (15-37) IU/L ALT (14-63) IU/L Alkaline Phosphatase (46-116) U/L Total Protein (6.4-8.2) g/dL Albumin (3.4-5.0) g/dL Globulin (2.6-4.0) g/dL Albumin/Globulin Ratio (0.9-1.6) Lipase (73-393) U/L Urine Color Urine Appearance Urine pH (5.0-8.0) Ur Specific [place] (1.001-1.035) Urine Protein (NEGATIVE) mg/dL Urine Glucose (UA) (NEGATIVE) mg/dL Urine Ketones (NEGATIVE) mg/dL Urine Occult Blood (NEGATIVE) Urine Nitrite (NEGATIVE) Urine Bilirubin (NEGATIVE) Urine Urobilinogen (<2.0) EU/dL Ur Leukocyte Esterase (NEGATIVE) Urine HCG, Qual NEGATIVE (NEGATIVE) Meds: Medications Generic Name Dose Route Start Last Admin Trade Name Freq PRN Reason Stop Dose Admin Sodium Chloride 10 ml 07/12/19 10:18 07/12/19 12:13 Saline Flush FLUSH 10 ml ASDIRECTED PRN Administration Keep Vein Open Sodium Chloride 2.5 ml 07/12/19 10:18 07/12/19 12:13 Saline Flush FLUSH 2.5 ml ASDIRECTED PRN Administration Keep Vein Open Discontinued Medications Generic Name Dose Route Start Last Admin Trade Name Freq PRN Reason Stop Dose Admin Al Hydroxide/Mg Hydroxide 30 ml 07/12/19 11:43 07/12/19 12:12 Mag-Al Plus PO 07/12/19 11:44 30 ml ONETIME ONE Administration Famotidine 20 mg 07/12/19 11:43 07/12/19 12:13 Pepcid IVPUSH 07/12/19 11:44 20 mg ONETIME ONE Administration Sodium Chloride 1,000 mls @ 999 mls/hr 07/12/19 11:43 07/12/19 12:09 Normal Saline IV 07/12/19 12:43 999 mls/hr .Bolus ONE Administration Ondansetron HCl 4 mg 07/12/19 11:43 07/12/19 12:09 Zofran IVPUSH 07/12/19 11:44 4 mg ONETIME ONE Administration Departure - Departure Time of Disposition: 13:16 Disposition: Home, Self-Care 01 Clinical Impression: Abdominal pain - Discharge Information Instructions: Abdominal Pain, Adult Referrals: Kasi Gonzalez MD [Primary Care Provider] - Sepsis Event Note - Evaluation Sepsis Screening Result: No Definite Risk - Focused Exam Vital Signs: Vital Signs Temp Pulse Resp BP Pulse Ox 07/12/19 12:17 35.9 C L 81 20 99/60 98 07/12/19 10:46 36.2 C 88 20 129/60 98 Date Exam was Performed: 07/12/19 Time Exam was Performed: 13:13
[2019-07-12 13:40] VITALS: BP 118/71; PULSE 80
== END 2019-07-12 13:35 | disposition home or self-care (01) ==
LOC: MW.ED 10:14
DX: R10.11 Right upper quadrant pain (principal); R11.0 Nausea; E78.00 Pure hypercholesterolemia, unspecified; J44.9 Chronic obstructive pulmonary disease, unspecified; G47.30 Sleep apnea, unspecified; K21.9 Gastro-esophageal reflux disease without esophagitis; E11.9 Type 2 diabetes mellitus without complications; E03.9 Hypothyroidism, unspecified; F41.9 Anxiety disorder, unspecified; F32.9 Major depressive disorder, single episode, unspecified; F17.210 Nicotine dependence, cigarettes, uncomplicated; E66.9 Obesity, unspecified; Z68.44 Body mass index [BMI] 60.0-69.9, adult; Z90.49 Acquired absence of other specified parts of digestive tract; Z88.1 Allergy status to other antibiotic agents; Z79.899 Other long term (current) drug therapy; Z79.84 Long term (current) use of oral hypoglycemic drugs; Z79.890 Hormone replacement therapy
CPT/HCPCS: 36415; 80053; 81003; 81025; 82962; 83690; 85025; 96361; 96374; 96375; 99284; A9270; J2405; J7030; S0028; 99283; J3490

== ENCOUNTER 2019-09-27 23:23 | Emergency (ER) | payer MEDICAID, OTHER ==
[2019-09-27 23:32] VITALS: BP 117/87; PULSE 92
[2019-09-27] MEDS ORDERED: Ibuprofen 800 MG Tab PO ONE (23:41)
--- NOTE | 2019-09-27 23:47 | EDM.PDOC ---
ED [facility] GENERAL MEDICAL PROBLEM - General Chief Complaint: ENT Problem Stated Complaint: EAR PAIN LEFT Time Seen by Provider: 09/27/19 23:24 Source of Information: Reports: Patient History Limitations: Reports: No Limitations - History of Present Illness INITIAL COMMENTS - FREE TEXT/NARRATIVE: History of present illness: [Patient is 38-year-old female who presents with left-sided ear pain. She has a history of TMJ for which she uses a mouthguard and occasionally muscle relaxants. She states that the pain in her left ear began earlier today. She denies any other URI symptoms. No fever, no cough, no sinus congestion. Has not tried any medications to treat her symptoms. Says she does not like taking pills. She also complains of a dry patch of skin on her right lower back just above her buttocks. She is complaining of some pain medial to that area as well. She has been using topical hydrocortisone to manage the dryness. Denies known allergies, injuries, falls, history of shingles, or blisters.] Review of systems: As per history of present illness and below otherwise all systems reviewed and negative. Past medical history: As per history of present illness and as reviewed below otherwise noncontributory. Surgical history: As per history of present illness and as reviewed below otherwise noncontributory. Social history: No reported history of drug or alcohol abuse. Family history: As per history of present illness and as reviewed below otherwise noncontributory. Physical exam: HEENT: Atraumatic, normocephalic, pupils reactive, negative for conjunctival pallor or scleral icterus, mucous membranes moist, throat clear, neck supple, nontender, trachea midline. TM's normal bilaterally. Lungs: Clear to auscultation, breath sounds equal bilaterally, chest nontender. Heart: S1S2, regular, negative for clicks, rubs, or JVD. Abdomen: Soft, nondistended, nontender. Negative for masses or hepatosplenomegaly. Negative for costovertebral tenderness. Pelvis: Stable nontender. Genitourinary: Deferred. Rectal: Deferred. SKIN: 3X3 cm dry skin patch on right lower back, no erythema, induration, vesicles or other concerning findings Extremities: Atraumatic, negative for cords or calf pain. Neurovascular unremarkable. Neuro: Awake, alert, oriented. Motor and sensory grossly intact throughout. Exam nonfocal. Diagnostics: [] Therapeutics: [] Impression: [] Plan: [] Definitive disposition and diagnosis as appropriate pending reevaluation and review of above. Left Ear Pain Score (Numeric/FACES): 4 - Related Data Allergies Allergy/AdvReac Type Severity Reaction Status Date / Time piperacillin sodium AdvReac Nausea and Verified 09/27/19 23:34 [From Zosyn] Vomiting tazobactam sodium AdvReac Nausea and Verified 09/27/19 23:34 [From Zosyn] Vomiting Home Meds: Home Meds Enalapril Maleate [Vasotec] 5 mg PO BEDTIME 10/30/13 [History] Furosemide [Lasix] 20 mg PO DAILY 10/30/13 [History] Gabapentin [Neurontin] 300 mg PO BID 10/30/13 [History] metFORMIN [Glucophage] 1,000 mg PO BIDMEALS 03/01/15 [History] Citalopram [Celexa] 60 mg PO BEDTIME 10/13/15 [History] Levothyroxine Sodium [Synthroid] 225 mcg PO ACBREAKFAST 10/14/15 [History] Fenofibrate 48 mg PO DAILY 05/12/16 [History] Potassium Chloride 10 meq PO DAILY 05/12/16 [History] Liraglutide [Victoza 3-Gaudencio] 0.6 mg SQ DAILY 11/25/17 [History] Empagliflozin [Jardiance] PO DAILY 07/12/19 [History] Omeprazole 20 mg PO DAILY 07/12/19 [History] Ondansetron [Zofran ODT] 4 mg PO Q6H PRN #12 tab.dis 07/12/19 [Rx] atorvaSTATin [Lipitor] 10 mg PO DAILY 07/12/19 [History] Alum Hydrox/Mag Hydrox/Simeth [Maalox Advanced] 1 ml PO TID 09/27/19 [History] Past Medical History HEENT History: Reports: None Cardiovascular History: Reports: High Cholesterol Respiratory History: Reports: Asthma, COPD, Pneumonia, Recurrent, Sleep Apnea, Other (See Below) Other Respiratory History: uses BiPAP at home Gastrointestinal History: Reports: GERD Genitourinary History: Reports: None 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) Musculoskeletal History: Reports: Arthritis Neurological History: Reports: None Psychiatric History: Reports: Anxiety, Depression, Suicide Attempt Other Psychiatric History: mood disorder, borderline personality disorder Endocrine/Metabolic History: Reports: Diabetes, Type II, Hypothyroidism, Obesity /BMI 30+ Hematologic History: Reports: None Immunologic History: Reports: None Oncologic (Cancer) History: Reports: None Dermatologic History: Reports: Cellulitis, Other (See Below) Other Dermatologic History: skin abcess/infections - Infectious Disease History Infectious Disease History: Reports: Chicken Pox - Past Surgical History Head Surgeries/Procedures: Reports: None HEENT Surgical History: Reports: Adenoidectomy, Tonsillectomy Cardiovascular Surgical History: Reports: None Respiratory Surgical History: Reports: None GI Surgical History: Reports: Cholecystectomy Musculoskeletal Surgical History: Reports: None Social & Family History - Family History Family Medical History: Noncontributory Cardiac: Reports: High Cholesterol, Other (See Below) Other Cardiac Family History: heart attack Respiratory: Reports: Asthma, COPD GI: Reports: None : Reports: None OBGYN: Reports: Musculoskeletal: Reports: Arthritis Neurological: Reports: Alzheimers Disease, CVA Psychiatric: Reports: Anxiety, Depression, Panic Attack Endocrine/Metabolic: Reports: Diabetes, Type I, Diabetes, type II Oncologic: Reports: Pancreatic - Tobacco Use Smoking Status *Q: Current Every Day Smoker Years of Tobacco use: 25 Packs/Tins Daily: 1 - Caffeine Use Caffeine Use: Reports: Soda - Recreational Drug Use Recreational Drug Use: Yes Drug Use in Last 12 Months: No Recreational Drug Type: Reports: Methamphetamine Recreational Drug Use Frequency: Not Used In Over 1 Year ED ROS ENT - Review of Systems Review Of Systems: Comprehensive ROS is negative, except as noted in HPI. ED EXAM, ENT - Physical Exam Exam: See Below (refer to H and P) Course - Vital Signs Text/Narrative:: No evidence for otitis media or other infection involving the ear. Patient has audible clicking when she opens and closes her mouth, consistent with her history of TMJ problems. The area of skin shows no evidence for cellulitis, no evidence for shingles, only mild dryness of the skin. Encouraged adequate moisturizer and hydration, she has previously prescribed muscle relaxants that she can use for pain. Last Recorded V/S: Last Vital Signs Temp 35.8 C L 09/27/19 23:25 Pulse 92 09/27/19 23:25 Resp 16 09/27/19 23:25 BP 117/87 09/27/19 23:25 Pulse Ox 98 05/07/20 23:25 - Orders/Labs/Meds Orders: Active Orders 24 hr Category Date Time Status Ibuprofen [Motrin] Med 09/27/19 23:41 Once 800 mg PO ONETIME ONE Departure - Departure Time of Disposition: 23:47 Disposition: Home, Self-Care 01 Condition: Good Clinical Impression: TMJ (temporomandibular joint syndrome), Dry skin - Discharge Information Referrals: Kasi Gonzalez MD [Primary Care Provider] - Additional Instructions: The following information is given to patients seen in the emergency department who are being discharged to home. This information is to outline your options for follow-up care. We provide all patients seen in our emergency department with a follow-up referral. The need for follow-up, as well as the timing and circumstances, are variable depending upon the specifics of your emergency department visit. If you don't have a primary care physician on staff, we will provide you with a referral. We always advise you to contact your personal physician following an emergency department visit to inform them of the circumstance of the visit and for follow-up with them and/or the need for any referrals to a consulting specialist. The emergency department will also refer you to a specialist when appropriate. This referral assures that you have the opportunity for follow-up care with a specialist. All of these measure are taken in an effort to provide you with optimal care, which includes your follow-up. Under all circumstances we always encourage you to contact your private physician who remains a resource for coordinating your care. When calling for follow-up care, please make the office aware that this follow-up is from your recent emergency room visit. If for any reason you are refused follow-up, please contact the [facility] Emergency Department at and asked to speak to the emergency department charge nurse. Sepsis Event Note - Evaluation Sepsis Screening Result: No Definite Risk - Focused Exam Vital Signs: Vital Signs Temp Pulse Resp BP Pulse Ox 09/27/19 23:25 35.8 C L 92 16 117/87 98 Date Exam was Performed: 09/27/19 Time Exam was Performed: 23:42 - My Orders Last 24 Hours: My Active Orders 09/27/19 23:41 Ibuprofen [Motrin] 800 mg PO ONETIME ONE - Assessment/Plan Last 24 Hours: My Active Orders 09/27/19 23:41 Ibuprofen [Motrin] 800 mg PO ONETIME ONE
== END 2019-09-27 23:47 | disposition left against medical advice (07) ==
LOC: MW.ED 23:23
DX: M26.622 Arthralgia of left temporomandibular joint (principal); J44.9 Chronic obstructive pulmonary disease, unspecified; K21.9 Gastro-esophageal reflux disease without esophagitis; E11.9 Type 2 diabetes mellitus without complications; E03.9 Hypothyroidism, unspecified; E66.9 Obesity, unspecified; Z68.44 Body mass index [BMI] 60.0-69.9, adult; F41.9 Anxiety disorder, unspecified; F32.9 Major depressive disorder, single episode, unspecified; F17.210 Nicotine dependence, cigarettes, uncomplicated; Z79.84 Long term (current) use of oral hypoglycemic drugs; Z79.899 Other long term (current) drug therapy; Z88.1 Allergy status to other antibiotic agents; L85.3 Xerosis cutis
CPT/HCPCS: 99282

== ENCOUNTER 2020-01-16 23:03 | Emergency (ER) | payer OTHER ==
[2020-01-16] MEDS ORDERED: LORazepam 2 MG/ML SDV ONE (23:27)
[2020-01-16] MEDS ORDERED: Sodium Chloride 0.9% 2.5 ML Syringe FLUSH PRN (23:28)
[2020-01-16] MEDS ORDERED: Sodium Chloride 0.9% 10 ML Syringe FLUSH PRN (23:28)
[2020-01-16] MEDS ORDERED: LORazepam 2 MG/ML SDV IM ONE (23:28)
--- NOTE | 2020-01-16 23:34 | EDM.PDOC ---
ED HPI GENERAL MEDICAL PROBLEM - General Chief Complaint: Respiratory Problem Stated Complaint: DIZZINESS, CONFUSION Time Seen by Provider: 01/16/20 23:14 Source of Information: Reports: Patient History Limitations: Reports: No Limitations - History of Present Illness INITIAL COMMENTS - FREE TEXT/NARRATIVE: 39-year-old morbidly obese female with history of asthma, HTN, DMii, alcohol intoxication presents for shortness of breath for the last 4 hours. Friend in the POV said she fell yesterday. She was exposed to COVID. History and review of system is limited secondary to altered mental status. Past medical history: No additional pertinent history Past Surgical history: No additional pertinent history Social history: No additional pertinent history Family history: No additional pertinent history PHYSICAL EXAM General: Confused, agitated. MORBID OBESITY HEENT: dry mucous membrane Neck: supple, no meningismus, no Kernig or Brudzinski Cardiac: S1S2 RRR Respiratory: CTAB, no crackles or rales, no wheezing Abdomen: Soft, nontender, no rebound or guarding, nondistended, no pulsatile mas s. Back: nontender Musculoskeletal: NVI distally, no deformity Neuro: Confused. - Related Data Allergies Allergy/AdvReac Type Severity Reaction Status Date / Time piperacillin sodium AdvReac Nausea and Verified 01/17/20 00:53 [From Zosyn] Vomiting tazobactam sodium AdvReac Nausea and Verified 01/17/20 00:53 [From Zosyn] Vomiting Home Meds: Home Meds Enalapril Maleate [Vasotec] 5 mg PO BEDTIME 10/30/13 [History] Furosemide [Lasix] 20 mg PO DAILY 10/30/13 [History] Gabapentin [Neurontin] 300 mg PO BID 10/30/13 [History] metFORMIN [Glucophage] 1,000 mg PO BIDMEALS 03/01/15 [History] Citalopram [Celexa] 60 mg PO BEDTIME 10/13/15 [History] Levothyroxine Sodium [Synthroid] 225 mcg PO ACBREAKFAST 10/14/15 [History] Fenofibrate 48 mg PO DAILY 05/12/16 [History] Potassium Chloride 10 meq PO DAILY 05/12/16 [History] Liraglutide [Victoza 3-Gaudencio] 0.6 mg SQ DAILY 11/25/17 [History] Empagliflozin [Jardiance] 25 mg PO DAILY 07/12/19 [History] Omeprazole 20 mg PO DAILY 07/12/19 [History] Ondansetron [Zofran ODT] 4 mg PO Q6H PRN #12 tab.dis 07/12/19 [Rx] atorvaSTATin [Lipitor] 10 mg PO DAILY 07/12/19 [History] Alum Hydrox/Mag Hydrox/Simeth [Maalox Advanced] 1 ml PO TID 09/27/19 [History] Past Medical History HEENT History: Reports: None Cardiovascular History: Reports: High Cholesterol Respiratory History: Reports: Asthma, COPD, Pneumonia, Recurrent, Sleep Apnea, Other (See Below) Other Respiratory History: uses BiPAP at home Gastrointestinal History: Reports: GERD Genitourinary History: Reports: None STAFF RADIOLOGIST History: Reports: Other (See Below) Musculoskeletal History: Reports: Arthritis Neurological History: Reports: None Psychiatric History: Reports: Anxiety, Depression, Suicide Attempt Other Psychiatric History: mood disorder, borderline personality disorder Endocrine/Metabolic History: Reports: Diabetes, Type II, Hypothyroidism, Obesity/BMI 30+ Hematologic History: Reports: None Immunologic History: Reports: None Oncologic (Cancer) History: Reports: None Dermatologic History: Reports: Cellulitis, Other (See Below) Other Dermatologic History: skin abcess/infections - Infectious Disease History Infectious Disease History: Reports: Chicken Pox - Past Surgical History Head Surgeries/Procedures: Reports: None HEENT Surgical History: Reports: Adenoidectomy, Tonsillectomy Cardiovascular Surgical History: Reports: None Respiratory Surgical History: Reports: None GI Surgical History: Reports: Cholecystectomy Musculoskeletal Surgical History: Reports: None Social & Family History - Family History Family Medical History: Noncontributory Cardiac: Reports: High Cholesterol, Other (See Below) Other Cardiac Family History: heart attack Respiratory: Reports: Asthma, COPD GI: Reports: None : Reports: None OBGYN: Reports: Musculoskeletal: Reports: Arthritis Neurological: Reports: Alzheimers Disease, CVA Psychiatric: Reports: Anxiety, Depression, Panic Attack Endocrine/Metabolic: Reports: Diabetes, Type I, Diabetes, type II Oncologic: Reports: Pancreatic - Caffeine Use Caffeine Use: Reports: Soda ED ROS GENERAL - Review of Systems Review Of Systems: Unable To Obtain Reason Not Obtained: AMS ED EXAM, GENERAL - Physical Exam Exam: See Below (see dictation) ED RESPIRATORY PROCEDURES - Additional/Other Procedure(s) Other (Free Text) Procedure(s): RSI / INTUBATION: Indication: Respiratory failure. Oral airway was completed prior to intubation. The patient was placed in a flat position. Continuous cardiac monitoring was performed. Crash cart was in the room as well as respiratory therapist to help with airway management. RSI was achieved using Etomidate 20mg and succinylcholine 100mg. The patient was easily ventilated using an ambu bag. A MAC 4 BLADE was used and inserted into the oropharynx at which time there was a Grade 2 view of the vocal cords. A 7.5-frisian ET was inserted and visualized going through the vocal cords. The stylette was removed. Colorimetric change was visualized on the CO2 meter. Breath sounds were heard in both lung wells equally. Good chest rise with ventilation along with misting in the ET tube was seen. The endotracheal tube was placed at 20 cm, measured at the lip. Portable chest x-ray was obtained to confirm tube placement. There were no complications. Oxygenation post intubation was noted to be 100%. Time spent: 10 minutes EKG INTERPRETATION EKG Interpretation Comments: 92 Bpm, NSR, normal QRS interval, no STEMI. EKG and rhythm strip interpreted by me at 1108p Course - Vital Signs Last Recorded V/S: Last Vital Signs Temp 95.4 F L 01/16/20 23:05 Pulse 115 H 01/16/20 23:05 Resp 19 01/16/20 23:05 BP 147/88 H 01/16/20 23:05 Pulse Ox 95 01/16/20 23:05 - Orders/Labs/Meds Orders: Active Orders 24 hr Category Date Time Status Cardiac Monitoring [RC] . DIRECTED Care 01/16/20 23:28 Active Pulse Oximetry [RC] ASDIRECTED Care 01/16/20 23:28 Active RASS Sedation Scale [RC] ASDIRECTED Care 01/17/20 01:17 Active RT Ventilator, Adult [RC] ASDIRECTED Care 01/17/20 01:25 Active Chest 1V Frontal [CR] Routine Exams 01/17/20 Ordered CPK [CREATINE KINASE,CK] [CHEM] Stat Lab 01/17/20 01:10 Ordered CULTURE BLOOD [BC] Stat Lab 01/17/20 00:27 Ordered CULTURE BLOOD [BC] Stat Lab 01/17/20 00:27 Ordered LACTATE WITH REFLEX [BG] Stat Lab 01/17/20 00:26 Ordered Sodium Chloride 0.9% [Normal Saline] 1,000 ml Med 01/17/20 01:12 Ordered IV .Bolus Sodium Chloride 0.9% [Saline Flush] Med 01/16/20 23:28 Active 10 ml FLUSH ASDIRECTED PRN Sodium Chloride 0.9% [Saline Flush] Med 01/16/20 23:28 Active 2.5 ml FLUSH ASDIRECTED PRN Vancomycin 1.5 gm Med 01/17/20 00:26 Active Sodium Chloride 0.9% [Normal Saline] 250 ml IV STAT propofoL [Diprivan 100 ML] 100 ml Med 01/17/20 01:30 Active IV TITRATE propofoL [Diprivan 100 ML] 100 ml Med 01/17/20 01:30 Active IV TITRATE Blood Culture x2 Reflex Set [OM.PC] Stat Oth 01/17/20 00:26 Ordered Desired Level of Sedation (RASS) [AST] Click to Edit Ot 01/17/20 01:17 Ordered Saline Lock Insert [OM.PC] Stat Ot 01/16/20 23:28 Ordered Severe Sepsis Onset Time [OM.PC] Stat Oth 01/17/20 00:26 Ordered Medication Orders Vancomycin HCl 1.5 gm/ Sodium (Chloride) 250 mls @ 167 mls/hr IV STAT ONE Stop: 01/17/20 01:55 Last Admin: 01/17/20 01:16 Dose: 167 mls/hr Documented by: ARMANI Sodium Chloride (Normal Saline) 1,000 mls @ 999 mls/hr IV .Bolus ONE Stop: 01/17/20 02:12 Last Admin: 01/17/20 01:16 Dose: 999 mls/hr Documented by: ARMANI Propofol (Diprivan 100 Ml) 100 mls @ 4.082 mls/hr IV TITRATE SHONDA; Protocol Propofol (Diprivan 100 Ml) 100 mls @ 4.082 mls/hr IV TITRATE SHONDA; Protocol Sodium Chloride (Saline Flush) 10 ml FLUSH ASDIRECTED PRN PRN Reason: Keep Vein Open Sodium Chloride (Saline Flush) 2.5 ml FLUSH ASDIRECTED PRN PRN Reason: Keep Vein Open Labs: Laboratory Tests 01/16/20 01/16/20 01/16/20 Range/Units 23:45 23:45 23:45 WBC 14.84 H (4.0-11.0) K/uL RBC 4.99 (4.30-5.90) M/uL Hgb 15.8 (12.0-16.0) g/dL Hct 47.3 H (36.0-46.0) % MCV 94.8 (80.0-98.0) fL MCH 31.7 (27.0-32.0) pg MCHC 33.4 (31.0-37.0) g/dL RDW Std Deviation 46.8 (28.0-62.0) fl RDW Coeff of [place] 14 (11.0-15.0) % Plt Count 186 (150-400) K/uL Neut % (Auto) 61.2 (48.0-80.0) % Lymph % (Auto) 29.4 (16.0-40.0) % [place] % (Auto) 6.9 (0.0-15.0) % Eos % (Auto) 2.2 (0.0-7.0) % Baso % (Auto) 0.3 (0.0-1.5) % Neut # (Auto) 9.1 H (1.4-5.7) K/uL Lymph # (Auto) 4.4 H (0.6-2.4) K/uL [place] # (Auto) 1.0 H (0.0-0.8) K/uL Eos # (Auto) 0.3 (0.0-0.7) K/uL Baso # (Auto) 0.0 (0.0-0.1) K/uL Nucleated RBC % 0.0 /100WBC Nucleated RBCs # 0 K/uL INR 0.95 ABG pH (7.35-7.45) ABG pCO2 (35-45) mmHG ABG pO2 (75-100) mmHG ABG HCO3 (22-26) mEq/L ABG Total CO2 ABG Base Excess (-2.0-2.0) Lactate (0.20-2.00) mmol/L Sodium 137 (136-145) mmol/L Potassium 3.6 (3.5-5.1) mmol/L Chloride 98 (98-107) mmol/L Carbon Dioxide 18.6 L (21.0-32.0) mmol/L BUN 14 (7.0-18.0) mg/dL Creatinine 1.2 H (0.6-1.0) mg/dL Est Cr Clr Drug Dosing TNP Estimated GFR (MDRD) 50.0 ml/min Glucose 313 H (74-106) mg/dL Calcium 10.0 (8.5-10.1) mg/dL Magnesium 1.8 (1.8-2.4) mg/dL Total Bilirubin 0.4 (0.2-1.0) mg/dL AST 62 H (15-37) IU/L ALT 103 H (14-63) IU/L Alkaline Phosphatase 95 (46-116) U/L Troponin I < 0.050 (0.000-0.056) ng/mL Total Protein 7.9 (6.4-8.2) g/dL Albumin 4.4 (3.4-5.0) g/dL Globulin 3.5 (2.6-4.0) g/dL Albumin/Globulin Ratio 1.3 (0.9-1.6) Urine Color Urine Appearance Urine pH (5.0-8.0) Ur Specific [place] (1.001-1.035) Urine Protein (NEGATIVE) mg/dL Urine Glucose (UA) (NEGATIVE) mg/dL Urine Ketones (NEGATIVE) mg/dL Urine Occult Blood (NEGATIVE) Urine Nitrite (NEGATIVE) Urine Bilirubin (NEGATIVE) Urine Urobilinogen (<2.0) EU/dL Ur Leukocyte Esterase (NEGATIVE) Urine RBC (0-2/HPF) Urine WBC (0-5/HPF) Ur Epithelial Cells (NONE-FEW) Urine Bacteria (NEGATIVE) Urine Mucus (NONE-MOD) Urine HCG, Qual (NEGATIVE) Urine Opiates Screen (NEGATIVE) Ur Oxycodone Screen (NEGATIVE) Urine Methadone Screen (NEGATIVE) Ur Barbiturates Screen (NEGATIVE) Ur Phencyclidine Scrn (NEGATIVE) Ur Amphetamine Screen (NEGATIVE) U Methamphetamines Scrn (NEGATIVE) U Benzodiazepines Scrn (NEGATIVE) U Cocaine Metab Screen (NEGATIVE) U Marijuana (THC) Screen (NEGATIVE) Ethyl Alcohol <3 mg/dL COVID-19 (HENNA) (NEGATIVE) 01/16/20 01/16/20 01/17/20 Range/Units 23:45 23:45 00:21 WBC (4.0-11.0) K/uL RBC (4.30-5.90) M/uL Hgb (12.0-16.0) g/dL Hct (36.0-46.0) % MCV (80.0-98.0) fL MCH (27.0-32.0) pg MCHC (31.0-37.0) g/dL RDW Std Deviation (28.0-62.0) fl RDW Coeff of [place] (11.0-15.0) % Plt Count (150-400) K/uL Neut % (Auto) (48.0-80.0) % Lymph % (Auto) (16.0-40.0) % [place] % (Auto) (0.0-15.0) % Eos % (Auto) (0.0-7.0) % Baso % (Auto) (0.0-1.5) % Neut # (Auto) (1.4-5.7) K/uL Lymph # (Auto) (0.6-2.4) K/uL [place] # (Auto) (0.0-0.8) K/uL Eos # (Auto) (0.0-0.7) K/uL Baso # (Auto) (0.0-0.1) K/uL Nucleated RBC % /100WBC Nucleated RBCs # K/uL INR ABG pH (7.35-7.45) ABG pCO2 (35-45) mmHG ABG pO2 (75-100) mmHG ABG HCO3 (22-26) mEq/L ABG Total CO2 ABG Base Excess (-2.0-2.0) Lactate 11.1 H* (0.20-2.00) mmol/L Sodium (136-145) mmol/L Potassium (3.5-5.1) mmol/L Chloride (98-107) mmol/L Carbon Dioxide (21.0-32.0) mmol/L BUN (7.0-18.0) mg/dL Creatinine (0.6-1.0) mg/dL Est Cr Clr Drug Dosing Estimated GFR (MDRD) ml/min Glucose (74-106) mg/dL Calcium (8.5-10.1) mg/dL Magnesium (1.8-2.4) mg/dL Total Bilirubin (0.2-1.0) mg/dL AST (15-37) IU/L ALT (14-63) IU/L Alkaline Phosphatase (46-116) U/L Troponin I (0.000-0.056) ng/mL Total Protein (6.4-8.2) g/dL Albumin (3.4-5.0) g/dL Globulin (2.6-4.0) g/dL Albumin/Globulin Ratio (0.9-1.6) Urine Color Urine Appearance Urine pH (5.0-8.0) Ur Specific [place] (1.001-1.035) Urine Protein (NEGATIVE) mg/dL Urine Glucose (UA) (NEGATIVE) mg/dL Urine Ketones (NEGATIVE) mg/dL Urine Occult Blood (NEGATIVE) Urine Nitrite (NEGATIVE) Urine Bilirubin (NEGATIVE) Urine Urobilinogen (<2.0) EU/dL Ur Leukocyte Esterase (NEGATIVE) Urine RBC (0-2/HPF) Urine WBC (0-5/HPF) Ur Epithelial Cells (NONE-FEW) Urine Bacteria (NEGATIVE) Urine Mucus (NONE-MOD) Urine HCG, Qual (NEGATIVE) Urine Opiates Screen NEGATIVE (NEGATIVE) Ur Oxycodone Screen NEGATIVE (NEGATIVE) Urine Methadone Screen NEGATIVE (NEGATIVE) Ur Barbiturates Screen NEGATIVE (NEGATIVE) Ur Phencyclidine Scrn NEGATIVE (NEGATIVE) Ur Amphetamine Screen NEGATIVE (NEGATIVE) U Methamphetamines Scrn NEGATIVE (NEGATIVE) U Benzodiazepines Scrn NEGATIVE (NEGATIVE) U Cocaine Metab Screen NEGATIVE (NEGATIVE) U Marijuana (THC) Screen NEGATIVE (NEGATIVE) Ethyl Alcohol mg/dL COVID-19 (HENNA) NEGATIVE (NEGATIVE) 01/17/20 01/17/20 01/17/20 Range/Units 00:21 00:21 01:16 WBC (4.0-11.0) K/uL RBC (4.30-5.90) M/uL Hgb (12.0-16.0) g/dL Hct (36.0-46.0) % MCV (80.0-98.0) fL MCH (27.0-32.0) pg MCHC (31.0-37.0) g/dL RDW Std Deviation (28.0-62.0) fl RDW Coeff of [place] (11.0-15.0) % Plt Count (150-400) K/uL Neut % (Auto) (48.0-80.0) % Lymph % (Auto) (16.0-40.0) % [place] % (Auto) (0.0-15.0) % Eos % (Auto) (0.0-7.0) % Baso % (Auto) (0.0-1.5) % Neut # (Auto) (1.4-5.7) K/uL Lymph # (Auto) (0.6-2.4) K/uL [place] # (Auto) (0.0-0.8) K/uL Eos # (Auto) (0.0-0.7) K/uL Baso # (Auto) (0.0-0.1) K/uL Nucleated RBC % /100WBC Nucleated RBCs # K/uL INR ABG pH 7.238 L (7.35-7.45) ABG pCO2 52 H (35-45) mmHG ABG pO2 169 H (75-100) mmHG ABG HCO3 22 (22-26) mEq/L ABG Total CO2 20.3 ABG Base Excess -5.8 L (-2.0-2.0) Lactate (0.20-2.00) mmol/L Sodium (136-145) mmol/L Potassium (3.5-5.1) mmol/L Chloride (98-107) mmol/L Carbon Dioxide (21.0-32.0) mmol/L BUN (7.0-18.0) mg/dL Creatinine (0.6-1.0) mg/dL Est Cr Clr Drug Dosing Estimated GFR (MDRD) ml/min Glucose (74-106) mg/dL Calcium (8.5-10.1) mg/dL Magnesium (1.8-2.4) mg/dL Total Bilirubin (0.2-1.0) mg/dL AST (15-37) IU/L ALT (14-63) IU/L Alkaline Phosphatase (46-116) U/L Troponin I (0.000-0.056) ng/mL Total Protein (6.4-8.2) g/dL Albumin (3.4-5.0) g/dL Globulin (2.6-4.0) g/dL Albumin/Globulin Ratio (0.9-1.6) Urine Color YELLOW Urine Appearance CLEAR Urine pH 5.5 (5.0-8.0) Ur Specific [place] >= 1.030 (1.001-1.035) Urine Protein 100 H (NEGATIVE) mg/dL Urine Glucose (UA) >=1000 (NEGATIVE) mg/dL Urine Ketones NEGATIVE (NEGATIVE) mg/dL Urine Occult Blood MODERATE H (NEGATIVE) Urine Nitrite NEGATIVE (NEGATIVE) Urine Bilirubin NEGATIVE (NEGATIVE) Urine Urobilinogen 0.2 (<2.0) EU/dL Ur Leukocyte Esterase NEGATIVE (NEGATIVE) Urine RBC NONE SEEN (0-2/HPF) Urine WBC 0-1 (0-5/HPF) Ur Epithelial Cells RARE (NONE-FEW) Urine Bacteria 1+ H (NEGATIVE) Urine Mucus LIGHT (NONE-MOD) Urine HCG, Qual NEGATIVE (NEGATIVE) Urine Opiates Screen (NEGATIVE) Ur Oxycodone Screen (NEGATIVE) Urine Methadone Screen (NEGATIVE) Ur Barbiturates Screen (NEGATIVE) Ur Phencyclidine Scrn (NEGATIVE) Ur Amphetamine Screen (NEGATIVE) U Methamphetamines Scrn (NEGATIVE) U Benzodiazepines Scrn (NEGATIVE) U Cocaine Metab Screen (NEGATIVE) U Marijuana (THC) Screen (NEGATIVE) Ethyl Alcohol mg/dL COVID-19 (HENNA) (NEGATIVE) Meds: Medications Generic Name Dose Route Start Last Admin Trade Name Freq PRN Reason Stop Dose Admin Vancomycin HCl 1.5 gm/ Sodium 250 mls @ 167 mls/hr 01/17/20 00:26 01/17/20 01:16 Chloride IV 01/17/20 01:55 167 mls/hr STAT ONE Administration Sodium Chloride 1,000 mls @ 999 mls/hr 01/17/20 01:12 01/17/20 01:16 Normal Saline IV 01/17/20 02:12 999 mls/hr .Bolus ONE Administration Propofol 100 mls @ 4.082 mls/hr 01/17/20 01:30 Diprivan 100 Ml IV TITRATE SHONDA Protocol 5 MCG/KG/MIN Propofol 100 mls @ 4.082 mls/hr 01/17/20 01:30 Diprivan 100 Ml IV TITRATE SHONDA Protocol 5 MCG/KG/MIN Sodium Chloride 10 ml 01/16/20 23:28 Saline Flush FLUSH ASDIRECTED PRN Keep Vein Open Sodium Chloride 2.5 ml 01/16/20 23:28 Saline Flush FLUSH ASDIRECTED PRN Keep Vein Open Discontinued Medications Generic Name Dose Route Start Last Admin Trade Name Ingrid PRN Reason Stop Dose Admin Propofol Confirm 01/16/20 23:57 01/17/20 01:18 Diprivan 100 Ml Administered 01/16/20 23:58 Not Given Dose 100 mls @ as directed .ROUTE .STK-MED ONE Aztreonam 1 gm/ Sodium 50 mls @ 100 mls/hr 01/17/20 00:33 01/17/20 01:16 Chloride IV 01/17/20 01:02 100 mls/hr ONETIME ONE Administration Lorazepam Confirm 01/16/20 23:27 01/17/20 01:18 Ativan Administered 01/16/20 23:28 Not Given Dose 2 mg .ROUTE .STK-MED ONE Lorazepam 2 mg 01/16/20 23:28 01/17/20 01:16 Ativan IM 01/16/20 23:29 2 mg ONETIME ONE Administration - Re-Assessments/Exams Free Text/Narrative Re-Assessment/Exam: 01/16/20 23:18 patient fell off her bed and hit her left frontal scalp, large baseball size hematoma noted to the left frontal lobe. She is confused and agitated, flailing her arms crawling on the floor, given 2 mg IM Ativan. Peripheral IV not yet established. 01/17/20 00:19 patient intubated. See procedure note. started her on propofol drip. Patient will require transfer to outside facility for the need of higher level of care not available at this facility, and the need for assessment consultant services unavailable at this facility. Any emergency conditions have been stabilized to the ability of the ED prior to the transfer. Case was discussed with transfer center and transfer arranged to outside facility/higher level of care. Discussed with Dr. Julian at [facility], will accept transfer. Medical Decision making: After triage, patient fell off the side of her bed and hit her left frontal scalp. CT did not reveal underlying ICH, she did have a large left scalp hematoma. After her fall she was crawling on the floor flailing her arms and legs swinging on people, extremely agitated, she had no IV access at that time. She was given IM Ativan and was lifted to her bed with the assistance of 7-8 people. She was exhibiting respiratory distress and was in agonal respirations and was intubated for airway protection. Anesthesia was at bedside for assistance given potential difficult intubation. Postintubation chest x-ray demonstrated infiltrate concerning for pneumonia. She was given IV antibiotics. Her COVID test was negative here, however I still suspect high likelihood of COVID-19 given multiple family members that were positive for COVID-19. This patient was evaluated for the symptoms described in the history of present illness. They were evaluated in the context of the global COVID-19 pandemic, which necessitated consideration that the patient might be at risk for infection with the SARS-CoV-2 virus that causes COVID-19. Institutional protocols and algorithms that pertain to the evaluation of patients at risk for COVID-19 are in a state of rapid change based on information released by regulatory bodies including the CDC and federal and state organizations. These policies and algorithms were followed during the patient's care. I wore full PPE, N95, face shield, gown and gloves throughout my evaluation and care of this patient. Diagnosis: AMS Sepsis Lactic acidosis Pneumonia Scalp hematoma Suspected COVID-19 Departure - Departure Time of Disposition: 01:44 Disposition: DC/Tfer to Other 70 Condition: Critical Clinical Impression: Pneumonia, Sepsis Altered mental status, unspecified Qualifiers: Altered mental status type: transient alteration of awareness Qualified Code(s): R40.4 - Transient alteration of awareness - Discharge Information *PRESCRIPTION DRUG MONITORING PROGRAM REVIEWED*: Not Applicable *COPY OF PRESCRIPTION DRUG MONITORING REPORT IN PATIENT [place]: Not Applicable Referrals: PCP,None [Primary Care Provider] - Forms: ED Department Discharge Critical Care Note - Critical Care Note Total Time (mins): 78 Comments: CRITCAL CARE: The high probability of sudden, clinically significant deterioration in the patient's condition required the highest level of my preparedness to intervene urgently. The services I provided to this patient were to treat and/or prevent clinically significant deterioration. Services included the following: chart data review, reviewing nursing notes and/or old charts, documentation time, assessment consultant collaboration regarding findings and treatment options, medication orders and management, direct patient care, vital sign assessments and ordering, interpreting and reviewing diagnostic studies/lab tests. Aggregate critical care time includes only time during which I was engaged in work directly related to the patient's care, as described above, whether at the bedside or elsewhere in the Emergency Department. It did not include time spent performing other reported procedures or the services of residents, students, nurses or physician assistants. Frequent interventions and/or frequent repeat evaluations were required as well as counseling and coordination of care regarding prognosis, treatments, and discussions with patient, staff and consultants. Sepsis Event Note (ED) - Focused Exam Vital Signs: Vital Signs Temp Pulse Resp BP Pulse Ox 01/16/20 23:05 95.4 F L 115 H 19 147/88 H 95 - My Orders Last 24 Hours: My Active Orders 01/16/20 23:28 Cardiac Monitoring [RC] . DIRECTED Pulse Oximetry [RC] ASDIRECTED Sodium Chloride 0.9% [Saline Flush] 10 ml FLUSH ASDIRECTED PRN Sodium Chloride 0.9% [Saline Flush] 2.5 ml FLUSH ASDIRECTED PRN Saline Lock Insert [OM.PC] Stat 01/17/20 Chest 1V Frontal [CR] Routine 01/17/20 00:26 LACTATE WITH REFLEX [BG] Stat Vancomycin 1.5 gm Sodium Chloride 0.9% [Normal Saline] 250 ml IV STAT Blood Culture x2 Reflex Set [OM.PC] Stat Severe Sepsis Onset Time [OM.PC] Stat 01/17/20 00:27 CULTURE BLOOD [BC] Stat CULTURE BLOOD [BC] Stat 01/17/20 01:10 CPK [CREATINE KINASE,CK] [CHEM] Stat 01/17/20 01:12 Sodium Chloride 0.9% [Normal Saline] 1,000 ml IV .Bolus 01/17/20 01:17 RASS Sedation Scale [RC] ASDIRECTED Desired Level of Sedation (RASS) [AST] Click to Edit 01/17/20 01:25 RT Ventilator, Adult [RC] ASDIRECTED 01/17/20 01:30 propofoL [Diprivan 100 ML] 100 ml IV TITRATE propofoL [Diprivan 100 ML] 100 ml IV TITRATE - Assessment/Plan Last 24 Hours: My Active Orders 01/16/20 23:28 Cardiac Monitoring [RC] . DIRECTED Pulse Oximetry [RC] ASDIRECTED Sodium Chloride 0.9% [Saline Flush] 10 ml FLUSH ASDIRECTED PRN Sodium Chloride 0.9% [Saline Flush] 2.5 ml FLUSH ASDIRECTED PRN Saline Lock Insert [OM.PC] Stat 01/17/20 Chest 1V Frontal [CR] Routine 01/17/20 00:26 LACTATE WITH REFLEX [BG] Stat Vancomycin 1.5 gm Sodium Chloride 0.9% [Normal Saline] 250 ml IV STAT Blood Culture x2 Reflex Set [OM.PC] Stat Severe Sepsis Onset Time [OM.PC] Stat 01/17/20 00:27 CULTURE BLOOD [BC] Stat CULTURE BLOOD [BC] Stat 01/17/20 01:10 CPK [CREATINE KINASE,CK] [CHEM] Stat 01/17/20 01:12 Sodium Chloride 0.9% [Normal Saline] 1,000 ml IV .Bolus 01/17/20 01:17 RASS Sedation Scale [RC] ASDIRECTED Desired Level of Sedation (RASS) [AST] Click to Edit 01/17/20 01:25 RT Ventilator, Adult [RC] ASDIRECTED 01/17/20 01:30 propofoL [Diprivan 100 ML] 100 ml IV TITRATE propofoL [Diprivan 100 ML] 100 ml IV TITRATE
[2020-01-16] MEDS ORDERED: propofoL 100 ML ONE (23:57)
[2020-01-17 00:28] LABS: BLOOD UREA NITROGEN,BUN 14 mg/dL (7.0-18.0); CARBON DIOXIDE,CO2 18.6 mmol/L (21.0-32.0); CHLORIDE,CL 98 mmol/L (98-107); GLUCOSE RANDOM 313 mg/dL (74-106); POTASSIUM,K 3.6 mmol/L (3.5-5.1); SODIUM,NA 137 mmol/L (136-145)
[2020-01-17] MEDS ORDERED: Sodium Chloride 0.9% 1,000 ML IV ONE (01:12)
--- NOTE | 2020-01-17 01:22 | CT ---
INDICATION: Fall hit head TECHNIQUE: CT Head without i.v. contrast. COMPARISON: None FINDINGS: Severe degradation of image quality noted due to body habitus causing severe beam hardening artifacts within the middle and posterior cranial fossa. CSF space: The ventricles are normal for age. Brain: No evidence of mass, acute infarction or hemorrhage is seen. No mass-effect or midline shift is seen. The brain parenchyma is otherwise normal in appearance with preservation of the rosales-white matter junction. Calvarium: The visualized paranasal sinuses are well aerated. The mastoid air cells are clear. The visualized orbits are grossly unremarkable. A large scalp hematoma is present over the left frontal region. ET tube is partially visualized. IMPRESSION: 1. No evidence of acute infarction, intracranial hemorrhage, or mass-effect seen. Dictated by Garry Galindo MD @ 01/17/2020 1:21:58 AM Please note that all CT scans at this facility use dose modulation, iterative reconstruction, and/or weight-based dosing when appropriate to reduce radiation dose to as low as reasonably achievable. Dictated by: Garry Galindo MD @ 01/17/2020 01:22:04 (Electronically Signed)
--- NOTE | 2020-01-17 01:24 | CR ---
INDICATION: Post intubation adjustment TECHNIQUE: Chest radiograph 1 view COMPARISON: 01/17/2020 FINDINGS: Severe degradation of image quality noted due to body habitus and lordotic technique. Mediastinum: The mediastinum is normal in appearance. The heart silhouette is normal in size and morphology. The endotracheal tube tip is positioned 0.8 cm from the nicole. The NG tube tip is not included but is positioned beyond the GE junction. Lung: Very small lung volumes are present new left perihilar infiltrates, likely due to atelectasis. Vascular crowding and left basal atelectasis are unchanged. No pneumothorax is identified. Bone and Soft tissue: Unremarkable for age. IMPRESSIONS: 1. The endotracheal tube tip is positioned 0.8 cm from the nicole. 2. Very small lung volumes are present new left perihilar infiltrates, likely due to atelectasis. Dictated by Garry Galindo MD @ 01/17/2020 1:24:07 AM Dictated by: Garry Galindo MD @ 01/17/2020 01:24:09 (Electronically Signed)
--- NOTE | 2020-01-17 01:27 | CR ---
INDICATION: Post intubation TECHNIQUE: Chest radiograph 1 view COMPARISON: 08/13/2019 FINDINGS: Severe degradation of image quality noted due to body habitus and lordotic technique. Mediastinum: The mediastinum is normal in appearance. The heart silhouette is normal in size and morphology. The endotracheal tube tip is positioned 0.6 cm from the nicole. NG tube is present coiled in the gastric body. Lung: Very small lung volumes are present with vascular crowding and left basilar atelectasis. No pneumothorax is identified. Bone and Soft tissue: Unremarkable for age. IMPRESSIONS: 1. The endotracheal tube tip is positioned 0.6 cm from the nicole. 2. Very small lung volumes are present with vascular crowding and left basilar atelectasis. Dictated by Garry Galindo MD @ 01/17/2020 1:25:02 AM Dictated by: Garry Galindo MD @ 01/17/2020 01:25:07 (Electronically Signed)
[2020-01-17] MEDS ORDERED: propofoL 100 ML IV SCH ×2 (01:30)
--- NOTE | 2020-01-17 01:31 | PCM.SN.2 ---
- Free Text/Narrative Note: Called at 2340 to ER to assist with intubation. PT. was being seen in the ER for shortness of breath. The patient fell and loss consciousness in the ER. ER physician completed intubation. Failed attempt with glidescope. Pt. bagged until sats improved. Second attempt by ER physician with MAC4 direct laryngoscopy. Successful intubation. Positive ETCO2. Tube was taped at 24cm at the lip. Breath sounds only on the right. Tube pulled back to 22cm. Bilateral breath sounds. Pt. began bucking the vent. 100mg of rocuronium given. 100mg of propofol given. Pt. started on a propofol drip of 10 mcg/kg/min and titrated up from there. Chest x- ray. showed end of et tube just above the nicole. Pulled back to 19.5 cm at the lip. chest x-ray showed correct tube placement. With visible OG tube in place. Assisted with sedation and transport to and from CT for head CT. Propofol drip was increased to 75 mcg/kg/min with increased blood pressures and heart rate. Care was resumed by ER staff with the intentions of transferring the patient out. See RN charting for vitals and times.
--- NOTE | 2020-01-17 02:02 | CR ---
HISTORY: Status post intubation, adjustment to. COMPARISON: From earlier this evening at 0026 hours FINDINGS: A portable erect AP view of the chest was obtained at 0034 hours. The endotracheal tube has been withdrawn slightly and the tip is now in satisfactory position 2 centimeters below the thoracic inlet. Again seen is the nasogastric tube which passes into the fundus of the stomach. Again seen is shallow inspiration with crowding of lung markings. However, there is mild vascular engorgement and mild interstitial pulmonary edema suggesting mild congestive failure, slightly worse than seen on the previous study. The heart remains normal in size. The mediastinum is normal in appearance. The osseous structures are normal in appearance for the patient`s age. IMPRESSION: Satisfactory positioning of endotracheal tube with tip 2 centimeters below the thoracic inlet. Nasogastric tube is again seen passing into the fundus of the stomach. Shallow inspiration, but there appears to be worsening of mild congestive failure. Dictated by Noel Valentin MD @ Jan 17 2020 1:59AM Signed by Dr. Noel Valentin @ Jan 17 2020 2:01AM
[2020-01-17 04:09] VITALS: BP 138/89; PULSE 104
== END 2020-01-17 01:50 | disposition other institution (70) ==
LOC: MW.ED 23:03
DX: A41.9 Sepsis, unspecified organism (principal); J18.9 Pneumonia, unspecified organism; R41.82 Altered mental status, unspecified; S00.03XA Contusion of scalp, initial encounter; E87.2 Acidosis; E66.01 Morbid (severe) obesity due to excess calories; J44.9 Chronic obstructive pulmonary disease, unspecified; E11.9 Type 2 diabetes mellitus without complications; K21.9 Gastro-esophageal reflux disease without esophagitis; I10 Essential (primary) hypertension; E03.9 Hypothyroidism, unspecified; E78.00 Pure hypercholesterolemia, unspecified; Z88.1 Allergy status to other antibiotic agents; Z68.44 Body mass index [BMI] 60.0-69.9, adult; Z79.899 Other long term (current) drug therapy; Z20.828 Contact with and (suspected) exposure to other viral communicable diseases; Z79.84 Long term (current) use of oral hypoglycemic drugs; W19.XXXA Unspecified fall, initial encounter
CPT/HCPCS: 31500; 36415; 36600; 43752; 51702; 70450; 71045; 80053; 80305; 80307; 81001; 81025; 82550; 82803; 83605; 83735; 84484; 85025; 85610; 87635; 94002; 96361; 96365; 96368; 96372; 99285; J2060; J3370; J3490; J7030; J7050; 99291; U0002

== ENCOUNTER 2020-06-01 01:03 | Emergency (ER) | payer MEDICAID, OTHER ==
[2020-06-01] MEDS ORDERED: Sodium Chloride 0.9% 2.5 ML Syringe FLUSH PRN (01:35)
[2020-06-01] MEDS ORDERED: Ketorolac 30 MG/ML SDV IVPUSH ONE (01:35)
[2020-06-01] MEDS ORDERED: Sodium Chloride 0.9% 10 ML Syringe FLUSH PRN (01:35)
[2020-06-01 02:28] LABS: BLOOD UREA NITROGEN,BUN 8 mg/dL (7.0-18.0); CARBON DIOXIDE,CO2 25.8 mmol/L (21.0-32.0); CHLORIDE,CL 100 mmol/L (98-107); GLUCOSE RANDOM 389 mg/dL (74-106); POTASSIUM,K 4.4 mmol/L (3.5-5.1); SODIUM,NA 138 mmol/L (136-145)
--- NOTE | 2020-06-01 02:40 | EDM.PDOC ---
ED HPI GENERAL MEDICAL PROBLEM - General Chief Complaint: General Stated Complaint: SHARP PAINS ON RIGHT SIDE Time Seen by Provider: 06/01/20 01:19 - History of Present Illness INITIAL COMMENTS - FREE TEXT/NARRATIVE: HISTORY AND PHYSICAL: History of present illness: This is a 39-year-old female with a history significant for diabetes who presents ER today secondary to pain to her right flank and side times several days. Patient denies recent fevers, shakes, chills, nausea, vomiting, diarrhea, dysuria, frequency, urgency, hematuria. Patient reports pain increases with movement of her torso. Patient reports pain increases with deep inspiration and cough. Patient denies any abdominal discomfort. Patient denies any change in her appetite. Review of systems: As per history of present illness and below otherwise all systems reviewed and negative. Past medical history: As per history of present illness and as reviewed below otherwise noncontributory. Surgical history: As per history of present illness and as reviewed below otherwise noncontributory. Social history: No reported history of drug or alcohol abuse. Family history: As per history of present illness and as reviewed below otherwise noncontribu tory. Physical exam: Constitutional: Patient is oriented to person, place, and time. Appears well- developed and well-nourished. No distress. HEENT: Moist mucous membranes Head: Normocephalic and atraumatic Eyes: Right eye exhibits no discharge. Left eye exhibits no discharge. No scleral icterus Neck: Normal range of motion. No tracheal deviation present. Cardiovascular: Normal rate and regular rhythm. Pulmonary: Effort normal, no respiratory distress. Abdominal: No distention Musculoskeletal: Normal range of motion Neurologic: Alert and oriented to person, place and time. Skin: [place], warm and dry. Psychiatric: Normal mood and affect. Behavior is normal. Judgment and thought content normal. Nursing note and vital signs have been reviewed Patient's ER physical exam is significant for reproducible tenderness to palpation to her right flank and right lateral chest wall. This patient was seen and evaluated during the 2019 SARS-CoV-2 novel coronavirus pandemic period. Community viral transmission is ongoing at time of this encounter and the emergency department is operating under pandemic response procedures. Diagnostics: Normal D-dimer and patient who is low risk makes PE extremely unlikely. Urinalysis reveals no evidence of infection. Chest Xray: Normal cardiac silhouette No infiltrates or effusions identified. No PTX No evidence of acute bony fracture. As interpreted by ER MD: Yulissa CBC, CMP within normal limits Therapeutics: Toradol 30 mg IV given in the ED. Patient reports that she feels better while resting here. Patient is resting comfortably and sleeping in the room. Patient does not appear to be in any acute distress at this time. Assessment and plan: This is a 39-year-old female who presents ER today complaining of pain to her right side. Pain appears to be mechanical in nature. Patient be discharged home on ibuprofen and Flexeril and instructed to follow-up with her primary care physician in the next 2 to 3 days for reevaluation. Reassessment at the time of disposition demonstrates that the patient is in no acute distress. The patient has remained stable throughout the entire ED visit and is without objective evidence for acute process requiring urgent intervention or hospitalization. The patient is stable for discharge, counseling is provided as documented above, discussed symptomatic treatment and specific conditions for return. I have spoken with the patient/caregiver and discussed todays findings, in addition to providing specific details for the plan of care. Questions are answered and there is agreement with the plan. 7:28 PM: June 01, 2020: Phone call follow-up made. No answer. Definitive disposition and diagnosis as appropriate pending reevaluation and review of above. right rib Pain Score (Numeric/FACES): 5 - Related Data Allergies Allergy/AdvReac Type Severity Reaction Status Date / Time piperacillin sodium AdvReac Nausea and Verified 06/01/20 01:19 [From Zosyn] Vomiting tazobactam sodium AdvReac Nausea and Verified 06/01/20 01:19 [From Zosyn] Vomiting Home Meds: Home Meds Furosemide [Lasix] 20 mg PO DAILY 10/30/13 [History] Gabapentin [Neurontin] 300 mg PO BID 10/30/13 [History] metFORMIN [Glucophage] 1,000 mg PO BIDMEALS 03/01/15 [History] Citalopram [Celexa] 60 mg PO BEDTIME 10/13/15 [History] Levothyroxine Sodium [Synthroid] 300 mcg PO ACBREAKFAST 10/14/15 [History] Fenofibrate 48 mg PO DAILY 05/12/16 [History] Potassium Chloride 10 meq PO DAILY 05/12/16 [History] Liraglutide [Victoza 3-Gaudencio] 0.6 mg SQ DAILY 11/25/17 [History] Empagliflozin [Jardiance] 25 mg PO DAILY 07/12/19 [History] Omeprazole 20 mg PO DAILY 07/12/19 [History] Ondansetron [Zofran ODT] 4 mg PO Q6H PRN #12 tab.dis 07/12/19 [Rx] atorvaSTATin [Lipitor] 10 mg PO DAILY 07/12/19 [History] Budesonide/Formoterol Fumarate [Symbicort 160-4.5 Mcg Inhaler] 2 puff INH BID 06/01/20 [History] Cyclobenzaprine [Flexeril] 10 mg PO TID PRN #20 tab 06/01/20 [Rx] Ibuprofen 600 mg PO Q6HR PRN #30 tablet 06/01/20 [Rx] Insulin Glarg,Human.Rec.Analog [Lantus] 3 units INJECT DAILY 06/01/20 [History] Past Medical History HEENT History: Reports: None Cardiovascular History: Reports: High Cholesterol Respiratory History: Reports: Asthma, COPD, Pneumonia, Recurrent, Sleep Apnea, Other (See Below) Other Respiratory History: uses BiPAP at home Gastrointestinal History: Reports: GERD Genitourinary History: Reports: None 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 (See Below) Musculoskeletal History: Reports: Arthritis Neurological History: Reports: None Psychiatric History: Reports: Anxiety, Depression, Suicide Attempt Other Psychiatric History: mood disorder, borderline personality disorder Endocrine/Metabolic History: Reports: Diabetes, Type II, Hypothyroidism, Obesity/BMI 30+ Hematologic History: Reports: None Immunologic History: Reports: None Oncologic (Cancer) History: Reports: None Dermatologic History: Reports: Cellulitis, Other (See Below) Other Dermatologic History: skin abcess/infections - Infectious Disease History Infectious Disease History: Reports: Chicken Pox - Past Surgical History Head Surgeries/Procedures: Reports: None HEENT Surgical History: Reports: Adenoidectomy, Tonsillectomy Cardiovascular Surgical History: Reports: None Respiratory Surgical History: Reports: None GI Surgical History: Reports: Cholecystectomy Musculoskeletal Surgical History: Reports: None Social & Family History - Family History Family Medical History: No Pertinent Family History Cardiac: Reports: High Cholesterol, Other (See Below) Other Cardiac Family History: heart attack Respiratory: Reports: Asthma, COPD GI: Reports: None : Reports: None OBGYN: Reports: Musculoskeletal: Reports: Arthritis Neurological: Reports: Alzheimers Disease, CVA Psychiatric: Reports: Anxiety, Depression, Panic Attack Endocrine/Metabolic: Reports: Diabetes, Type I, Diabetes, type II Oncologic: Reports: Pancreatic - Tobacco Use Tobacco Use Status *Q: Current Every Day Tobacco User Years of Tobacco use: 20 Packs/Tins Daily: 1 - Caffeine Use Caffeine Use: Reports: Tea - Recreational Drug Use Recreational Drug Use: No ED ROS GENERAL - Review of Systems Review Of Systems: See Below ED EXAM, GENERAL - Physical Exam Exam: See Below Course - Vital Signs Last Recorded V/S: Last Vital Signs Temp 96.8 F L 06/01/20 02:49 Pulse 90 06/01/20 02:49 Resp 18 06/01/20 02:49 BP 124/79 06/01/20 02:49 Pulse Ox 97 06/01/20 02:49 - Orders/Labs/Meds Orders: Active Orders 24 hr Category Date Time Status Saline Lock Insert [OM.PC] Stat Oth 06/01/20 01:35 Ordered Labs: Laboratory Tests 06/01/20 06/01/20 06/01/20 Range/Units 01:56 01:56 01:56 WBC 7.16 (4.0-11.0) K/uL RBC 4.39 (4.30-5.90) M/uL Hgb 13.7 (12.0-16.0) g/dL Hct 41.0 (36.0-46.0) % MCV 93.4 (80.0-98.0) fL MCH 31.2 (27.0-32.0) pg MCHC 33.4 (31.0-37.0) g/dL RDW Std Deviation 48.3 (28.0-62.0) fl RDW Coeff of [place] 14 (11.0-15.0) % Plt Count 114 L (150-400) K/uL MPV 13.10 H (7.40-12.00) fL Neut % (Auto) 70.7 (48.0-80.0) % Lymph % (Auto) 20.1 (16.0-40.0) % [place] % (Auto) 6.1 (0.0-15.0) % Eos % (Auto) 2.8 (0.0-7.0) % Baso % (Auto) 0.3 (0.0-1.5) % Neut # (Auto) 5.1 (1.4-5.7) K/uL Lymph # (Auto) 1.4 (0.6-2.4) K/uL [place] # (Auto) 0.4 (0.0-0.8) K/uL Eos # (Auto) 0.2 (0.0-0.7) K/uL Baso # (Auto) 0.0 (0.0-0.1) K/uL Nucleated RBC % 0.0 /100WBC Nucleated RBCs # 0 K/uL D-Dimer, Quantitative < 0.19 (0.0-0.50) mg/L FEU Sodium 138 (136-145) mmol/L Potassium 4.4 (3.5-5.1) mmol/L Chloride 100 (98-107) mmol/L Carbon Dioxide 25.8 (21.0-32.0) mmol/L BUN 8 (7.0-18.0) mg/dL Creatinine 1.0 (0.6-1.0) mg/dL Est Cr Clr Drug Dosing 54.25 mL/min Estimated GFR (MDRD) > 60.0 ml/min Glucose 389 H (74-106) mg/dL Calcium 9.0 (8.5-10.1) mg/dL Total Bilirubin 0.4 (0.2-1.0) mg/dL AST 60 H (15-37) IU/L ALT 78 H (14-63) IU/L Alkaline Phosphatase 111 (46-116) U/L Total Protein 6.9 (6.4-8.2) g/dL Albumin 3.8 (3.4-5.0) g/dL Globulin 3.1 (2.6-4.0) g/dL Albumin/Globulin Ratio 1.2 (0.9-1.6) Urine Color Urine Appearance Urine pH (5.0-8.0) Ur Specific [place] (1.001-1.035) Urine Protein (NEGATIVE) mg/dL Urine Glucose (UA) (NEGATIVE) mg/dL Urine Ketones (NEGATIVE) mg/dL Urine Occult Blood (NEGATIVE) Urine Nitrite (NEGATIVE) Urine Bilirubin (NEGATIVE) Urine Urobilinogen (<2.0) EU/dL Ur Leukocyte Esterase (NEGATIVE) Urine RBC (0-2/HPF) Urine WBC (0-5/HPF) Ur Epithelial Cells (NONE-FEW) Urine Bacteria (NEGATIVE) 06/01/20 Range/Units 02:20 WBC (4.0-11.0) K/uL RBC (4.30-5.90) M/uL Hgb (12.0-16.0) g/dL Hct (36.0-46.0) % MCV (80.0-98.0) fL MCH (27.0-32.0) pg MCHC (31.0-37.0) g/dL RDW Std Deviation (28.0-62.0) fl RDW Coeff of [place] (11.0-15.0) % Plt Count (150-400) K/uL MPV (7.40-12.00) fL Neut % (Auto) (48.0-80.0) % Lymph % (Auto) (16.0-40.0) % [place] % (Auto) (0.0-15.0) % Eos % (Auto) (0.0-7.0) % Baso % (Auto) (0.0-1.5) % Neut # (Auto) (1.4-5.7) K/uL Lymph # (Auto) (0.6-2.4) K/uL [place] # (Auto) (0.0-0.8) K/uL Eos # (Auto) (0.0-0.7) K/uL Baso # (Auto) (0.0-0.1) K/uL Nucleated RBC % /100WBC Nucleated RBCs # K/uL D-Dimer, Quantitative (0.0-0.50) mg/L FEU Sodium (136-145) mmol/L Potassium (3.5-5.1) mmol/L Chloride (98-107) mmol/L Carbon Dioxide (21.0-32.0) mmol/L BUN (7.0-18.0) mg/dL Creatinine (0.6-1.0) mg/dL Est Cr Clr Drug Dosing mL/min Estimated GFR (MDRD) ml/min Glucose (74-106) mg/dL Calcium (8.5-10.1) mg/dL Total Bilirubin (0.2-1.0) mg/dL AST (15-37) IU/L ALT (14-63) IU/L Alkaline Phosphatase (46-116) U/L Total Protein (6.4-8.2) g/dL Albumin (3.4-5.0) g/dL Globulin (2.6-4.0) g/dL Albumin/Globulin Ratio (0.9-1.6) Urine Color YELLOW Urine Appearance SLT CLOUDY Urine pH 5.5 (5.0-8.0) Ur Specific [place] 1.020 (1.001-1.035) Urine Protein NEGATIVE (NEGATIVE) mg/dL Urine Glucose (UA) >=1000 (NEGATIVE) mg/dL Urine Ketones NEGATIVE (NEGATIVE) mg/dL Urine Occult Blood TRACE-INTACT H (NEGATIVE) Urine Nitrite NEGATIVE (NEGATIVE) Urine Bilirubin NEGATIVE (NEGATIVE) Urine Urobilinogen 0.2 (<2.0) EU/dL Ur Leukocyte Esterase NEGATIVE (NEGATIVE) Urine RBC 1-3 (0-2/HPF) Urine WBC 0-2 (0-5/HPF) Ur Epithelial Cells MANY (NONE-FEW) Urine Bacteria FEW (NEGATIVE) Meds: Medications Discontinued Medications Generic Name Dose Route Start Last Admin Trade Name Freq PRN Reason Stop Dose Admin Ketorolac Tromethamine 30 mg 06/01/20 01:35 06/01/20 01:58 Toradol IVPUSH 06/01/20 01:36 30 mg ONETIME ONE Administration Sodium Chloride 10 ml 06/01/20 01:35 06/01/20 01:58 Saline Flush FLUSH 10 ml ASDIRECTED PRN Administration Keep Vein Open Sodium Chloride 2.5 ml 06/01/20 01:35 06/01/20 01:58 Saline Flush FLUSH 2.5 ml ASDIRECTED PRN Administration Keep Vein Open Departure - Departure Time of Disposition: 02:38 Disposition: Home, Self-Care 01 Condition: Good Clinical Impression: Musculoskeletal back pain - Discharge Information Prescriptions: Cyclobenzaprine [Flexeril] 10 mg PO TID PRN #20 tab PRN Reason: Muscle Spasm Ibuprofen 600 mg PO Q6HR PRN #30 tablet PRN Reason: Pain Instructions: Acute Back Pain, Adult, Pain Without a Known Cause Referrals: Kasi Gonzalez MD [Primary Care Provider] - Forms: ED Department Discharge Sepsis Event Note (ED) - Evaluation Sepsis Screening Result: No Definite Risk - My Orders Last 24 Hours: My Active Orders 06/01/20 01:35 Saline Lock Insert [OM.PC] Stat - Assessment/Plan Last 24 Hours: My Active Orders 06/01/20 01:35 Saline Lock Insert [OM.PC] Stat
[2020-06-01 02:49] VITALS: BP 124/79; PULSE 90
--- NOTE | 2020-06-01 02:52 | CR ---
INDICATION: Right-sided pain COMPARISON: 03/27/2020 FINDINGS: PA and lateral views of the chest were obtained. The lungs remain clear. No focal or diffuse infiltrates are present. The heart remains normal in size. The mediastinum is normal in appearance. The osseous structures are normal in appearance for the patient`s age. IMPRESSION: Normal chest two views. Dictated by Noel Valentin MD @ Jun 01 2020 2:49AM Signed by Dr. Noel Valentin @ Jun 01 2020 2:50AM
== END 2020-06-01 02:57 | disposition home or self-care (01) ==
LOC: MW.ED 01:03
DX: M54.9 Dorsalgia, unspecified (principal); J44.9 Chronic obstructive pulmonary disease, unspecified; E78.00 Pure hypercholesterolemia, unspecified; K21.9 Gastro-esophageal reflux disease without esophagitis; E11.9 Type 2 diabetes mellitus without complications; E03.9 Hypothyroidism, unspecified; F17.210 Nicotine dependence, cigarettes, uncomplicated; E66.9 Obesity, unspecified; Z68.44 Body mass index [BMI] 60.0-69.9, adult; Z88.0 Allergy status to penicillin; Z88.1 Allergy status to other antibiotic agents; Z79.899 Other long term (current) drug therapy; Z79.4 Long term (current) use of insulin
CPT/HCPCS: 36415; 71046; 80053; 81001; 85025; 85379; 96374; 99283; J1885; 99284

== ENCOUNTER 2020-07-03 13:28 | Emergency (ER) | payer MEDICAID ==
[2020-07-03] MEDS ORDERED: Ketorolac 30 MG/ML SDV IVPUSH ONE (14:22)
[2020-07-03] MEDS ORDERED: Ketorolac 15 MG/ML SDV IM ONE (15:46)
[2020-07-03 16:04] LABS: BLOOD UREA NITROGEN,BUN 12 mg/dL (7.0-18.0); CARBON DIOXIDE,CO2 29.2 mmol/L (21.0-32.0); CHLORIDE,CL 101 mmol/L (98-107); GLUCOSE RANDOM 136 mg/dL (74-106); POTASSIUM,K 4.7 mmol/L (3.5-5.1); SODIUM,NA 139 mmol/L (136-145)
--- NOTE | 2020-07-03 16:12 | CT ---
INDICATION: Left flank pain TECHNIQUE: CT Abdomen and pelvis without i.v. contrast. Coronal and sagittal reformats were obtained. COMPARISON: None FINDINGS: Lower chest: Unremarkable. Liver: Mild diffuse fatty infiltration of the liver is present. Spleen: Unremarkable. Pancreas: Unremarkable. Gallbladder: Previous cholecystectomy noted without significant intra- or extrahepatic biliary ductal dilatation seen. Kidney: Unremarkable. No kidney or ureteral stones or obstruction seen. Adrenal: Unremarkable. Bowel: Unremarkable. The appendix is normal in appearance and size. Vascular: Unremarkable. Lymph: Small subcentimeter lymph nodes are present in the retroperitoneum. Peritoneum: Unremarkable. No pneumoperitoneum is seen. No significant ascites is noted. Pelvis: There is a cystic lesion in the right ovary present measuring 3 cm. Soft tissue: Unremarkable. Bone: Unremarkable for age. IMPRESSION: 1. There is a cystic lesion in the right ovary present measuring 3 cm. Dictated by Garry Galindo MD @ 07/03/2020 4:11:18 PM Please note that all CT scans at this facility use dose modulation, iterative reconstruction, and/or weight-based dosing when appropriate to reduce radiation dose to as low as reasonably achievable. Dictated by: Garry Galindo MD @ 07/03/2020 16:11:22 (Electronically Signed)
--- NOTE | 2020-07-03 16:41 | EDM.PDOC ---
ED HPI GENERAL MEDICAL PROBLEM - General Chief Complaint: Abdominal Pain Stated Complaint: PAIN ON LEFT SIDE OF BODY Time Seen by Provider: 07/03/20 13:40 - History of Present Illness INITIAL COMMENTS - FREE TEXT/NARRATIVE: CHIEF COMPLAINT(S): "Pain in my left side HISTORY OF PRESENT ILLNESS: This is a 39-year-old woman with a past medical history of morbid obesity, diabetes mellitus, hypothyroidism, and hyperlipidemia who comes to the emergency department with a chief complaint of "pain in my left side." The patient states that for approximately 1 to 2 months now she has been experiencing pain in the left side of her lower back. She states that extends into her left leg. She states it feels worse when she moves and she describes it as dull and sharp rated 0 out of 10 currently but intermittently worsens to 6 out of 10. She states that she has intermittent nausea but denies any dysuria, vaginal bleeding, vaginal discharge. She denies any abdominal pain, melena, hematochezia. She states that the pain is not aggravated by eating and does worsen with movement. She denies any relieving symptoms and that it just resolves on its own intermittently. She states that she tried Tylenol and hydrocodone which she has not taken. She states that she has had similar pain in the past and was told it was muscle strain however it has not improved. REVIEW OF SYSTEMS: Constitutional: Denies fever, chills. Eyes: Denies eye pain Ears, Nose, Mouth, & Throat: Denies earache Cardiovascular: Denies chest pain Respiratory: Denies shortness of breath Gastrointestinal: Positive for intermittent nausea. Denies vomiting, diarrhea, hematochezia, melena, hematemesis, bilious emesis Genitourinary: Denies hematuria, dysuria, vaginal bleeding, vaginal discharge Skin:Denies a rash MSK: Positive for left lower back pain that radiates to her leg Neurological: Denies blurred vision, numbness, tingling, weakness Psychiatric: Denies depression PAST MEDICAL HISTORY: As per history of present illness and as reviewed below otherwise noncontributory. SURGICAL HISTORY: As per history of present illness and as reviewed below otherwise noncontributory. SOCIAL HISTORY: As per history of present illness and as reviewed below otherwise noncontributory. FAMILY HISTORY: As per history of present illness and as reviewed below otherwise noncontributory. EXAMINATION OF ORGAN SYSTEMS/BODY AREAS: Constitutional: Blood pressure was 104/49, heart rate 107, respiratory rate 20 with an oxygen saturation of 96% on room air. Temperature 36.1 General: Morbidly obese woman who does not appear to be in any acute distress Psychiatric: Appropriate mood and affect. Eyes: No scleral icterus or conjunctival erythema ENMT: Moist mucous membranes. No pharyngeal erythema Cardiovascular: Regular, rate, and rhythm. No gallops, murmurs, or rubs. Bilateral upper extremity pulses symmetric and intact. No peripheral edema. No JVD. Respiratory: Lungs clear to auscultation bilaterally. No wheezes, rales, or rhonchi. Gastrointestinal: Soft, non-tender, non-distended. Normoactive bowel sounds Genitourinary: No suprapubic tenderness no CVA tenderness. Musculoskeletal: Normal range of motion. There is paraspinal tenderness in the left thoracic and lumbar region which radiates down to her left lower quadrant. No rebound or guarding in the abdomen. Skin: No lesions or abrasions. Neurological: Alert, GCS 15 distal sensation is intact. MEDICAL DECISION MAKING AND COURSE IN THE ED WITH INTERPRETATION/REVIEW OF DIAGNOSTIC STUDIES: This is a 39-year-old woman with a past medical history of morbid obesity, diabetes mellitus who comes to the emergency department with left lower back pain which radiates anteriorly to her leg who is slightly tachycardic but otherwise stable. At this time I do believe this is likely secondary to lumbar strain however given repeat visits we will obtain work-up including CBC BMP, urinalysis. Differential also includes nephrolithiasis. Will obtain a CT abdomen pelvis without contrast. We will provide the patient with Toradol for pain relief. Laboratory: CBC is unremarkable except for thrombocytopenia at 149. BMP reveals hyperglycemia at 136. Urinalysis was a clean catch and was negative for leukocyte esterase, negative for nitrites, and negative for blood. Interpretation: Negative. The radiological images were viewed by myself along with reading the report from the radiologist. CT abdomen pelvis with out contrast reveals a cystic lesion of the right ovary measuring 3 cm otherwise unremarkable for any acute intra-abdominal pathology. After imaging I did reevaluate the patient. She stated that she felt better. I discussed with her at this time that she does have a right ovarian cyst. She states that she knows about this. I encouraged her to follow-up with gynecology. I did discuss with her that I do believe her pain is likely secondary to lumbar strain and discussed with her that she should use Tylenol and Motrin and [id number] Voltaren or lidocaine cream. I discussed with her that weight loss management would be important as I do believe this is a contributing factor. Encouraged her to follow-up with her primary care physician to discuss weight loss options. She was amenable to discharge at this time and had no further questions. DISPOSITION: The patient was discharged home in stable condition. The patient will follow up with primary care physician within 1 week CONDITION: Fair PROCEDURES: None FINAL IMPRESSION(S)/DIAGNOSES: 1. Acute lumbar strain Fidel Mora M.D. left flank Pain Score (Numeric/FACES): 6 - Related Data Allergies Allergy/AdvReac Type Severity Reaction Status Date / Time piperacillin sodium AdvReac Nausea and Verified 07/03/20 13:49 [From Zosyn] Vomiting tazobactam sodium AdvReac Nausea and Verified 07/03/20 13:49 [From Zosyn] Vomiting Home Meds: Home Meds Furosemide [Lasix] 20 mg PO DAILY 10/30/13 [History] Gabapentin [Neurontin] 300 mg PO BID 10/30/13 [History] metFORMIN [Glucophage] 1,000 mg PO BIDMEALS 03/01/15 [History] Citalopram [Celexa] 60 mg PO BEDTIME 10/13/15 [History] Levothyroxine Sodium [Synthroid] 300 mcg PO ACBREAKFAST 10/14/15 [History] Fenofibrate 48 mg PO DAILY 05/12/16 [History] Potassium Chloride 10 meq PO DAILY 05/12/16 [History] Liraglutide [Victoza 3-Gaudencio] 0.6 mg SQ DAILY 11/25/17 [History] Empagliflozin [Jardiance] 25 mg PO DAILY 07/12/19 [History] Omeprazole 20 mg PO DAILY 07/12/19 [History] Ondansetron [Zofran ODT] 4 mg PO Q6H PRN #12 tab.dis 07/12/19 [Rx] atorvaSTATin [Lipitor] 10 mg PO DAILY 07/12/19 [History] Budesonide/Formoterol Fumarate [Symbicort 160-4.5 Mcg Inhaler] 2 puff INH BID 06/01/20 [History] Cyclobenzaprine [Flexeril] 10 mg PO TID PRN #20 tab 06/01/20 [Rx] Ibuprofen 600 mg PO Q6HR PRN #30 tablet 06/01/20 [Rx] Insulin Glarg,Human.Rec.Analog [Lantus] 3 units INJECT DAILY 06/01/20 [History] Insulin Aspart [NovoLOG] 5 units INJECT ASDIRECTED 07/03/20 [History] Past Medical History HEENT History: Reports: None Cardiovascular History: Reports: High Cholesterol Respiratory History: Reports: Asthma, COPD, Pneumonia, Recurrent, Sleep Apnea, Other (See Below) Other Respiratory History: uses BiPAP at home Gastrointestinal History: Reports: GERD Genitourinary History: Reports: None 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 (See Below) Musculoskeletal History: Reports: Arthritis Neurological History: Reports: None Psychiatric History: Reports: Anxiety, Depression, Suicide Attempt Other Psychiatric History: mood disorder, borderline personality disorder Endocrine/Metabolic History: Reports: Diabetes, Type II, Hypothyroidism, Obesity/BMI 30+ Hematologic History: Reports: None Immunologic History: Reports: None Oncologic (Cancer) History: Reports: None Dermatologic History: Reports: Cellulitis, Other (See Below) Other Dermatologic History: skin abcess/infections - Infectious Disease History Infectious Disease History: Reports: Chicken Pox - Past Surgical History Head Surgeries/Procedures: Reports: None HEENT Surgical History: Reports: Adenoidectomy, Tonsillectomy Cardiovascular Surgical History: Reports: None Respiratory Surgical History: Reports: None GI Surgical History: Reports: Cholecystectomy Musculoskeletal Surgical History: Reports: None Social & Family History - Family History Family Medical History: No Pertinent Family History Cardiac: Reports: High Cholesterol, Other (See Below) Other Cardiac Family History: heart attack Respiratory: Reports: Asthma, COPD GI: Reports: None : Reports: None OBGYN: Reports: Musculoskeletal: Reports: Arthritis Neurological: Reports: Alzheimers Disease, CVA Psychiatric: Reports: Anxiety, Depression, Panic Attack Endocrine/Metabolic: Reports: Diabetes, Type I, Diabetes, type II Oncologic: Reports: Pancreatic - Tobacco Use Tobacco Use Status *Q: Current Every Day Tobacco User Years of Tobacco use: 25 Packs/Tins Daily: 1 - Caffeine Use Caffeine Use: Reports: Tea - Recreational Drug Use Recreational Drug Use: No ED ROS GENERAL - Review of Systems Review Of Systems: See Below ED EXAM,LOWER BACK PAIN/INJURY - Physical Exam Exam: See Below Course - Vital Signs Last Recorded V/S: Last Vital Signs Temp 36.1 C 07/03/20 13:50 Pulse 98 07/03/20 16:50 Resp 18 07/03/20 16:50 BP 131/80 07/03/20 16:50 Pulse Ox 97 07/03/20 16:50 - Orders/Labs/Meds Labs: Laboratory Tests 07/03/20 07/03/20 07/03/20 Range/Units 13:42 13:42 14:36 WBC 8.91 (4.0-11.0) K/uL RBC 4.66 (4.30-5.90) M/uL Hgb 14.7 (12.0-16.0) g/dL Hct 44.1 (36.0-46.0) % MCV 94.6 (80.0-98.0) fL MCH 31.5 (27.0-32.0) pg MCHC 33.3 (31.0-37.0) g/dL RDW Std Deviation 46.9 (28.0-62.0) fl RDW Coeff of [place] 14 (11.0-15.0) % Plt Count 149 L (150-400) K/uL MPV 13.50 H (7.40-12.00) fL Neut % (Auto) 77.7 (48.0-80.0) % Lymph % (Auto) 14.5 L (16.0-40.0) % [place] % (Auto) 5.4 (0.0-15.0) % Eos % (Auto) 2.1 (0.0-7.0) % Baso % (Auto) 0.3 (0.0-1.5) % Neut # (Auto) 6.9 H (1.4-5.7) K/uL Lymph # (Auto) 1.3 (0.6-2.4) K/uL [place] # (Auto) 0.5 (0.0-0.8) K/uL Eos # (Auto) 0.2 (0.0-0.7) K/uL Baso # (Auto) 0.0 (0.0-0.1) K/uL Nucleated RBC % 0.0 /100WBC Nucleated RBCs # 0 K/uL Sodium 139 (136-145) mmol/L Potassium 4.7 (3.5-5.1) mmol/L Chloride 101 (98-107) mmol/L Carbon Dioxide 29.2 (21.0-32.0) mmol/L BUN 12 (7.0-18.0) mg/dL Creatinine 1.0 (0.6-1.0) mg/dL Est Cr Clr Drug Dosing 54.25 mL/min Estimated GFR (MDRD) > 60.0 ml/min Glucose 136 H (74-106) mg/dL Calcium 9.6 (8.5-10.1) mg/dL Urine Color YELLOW Urine Appearance CLEAR Urine pH 5.5 (5.0-8.0) Ur Specific [place] 1.020 (1.001-1.035) Urine Protein NEGATIVE (NEGATIVE) mg/dL Urine Glucose (UA) >=1000 (NEGATIVE) mg/dL Urine Ketones NEGATIVE (NEGATIVE) mg/dL Urine Occult Blood NEGATIVE (NEGATIVE) Urine Nitrite NEGATIVE (NEGATIVE) Urine Bilirubin NEGATIVE (NEGATIVE) Urine Urobilinogen 0.2 (<2.0) EU/dL Ur Leukocyte Esterase NEGATIVE (NEGATIVE) Meds: Medications Discontinued Medications Generic Name Dose Route Start Last Admin Trade Name Freq PRN Reason Stop Dose Admin Ketorolac Tromethamine 15 mg 07/03/20 14:22 07/03/20 15:45 Toradol IVPUSH 07/03/20 14:23 Not Given ONETIME ONE Ketorolac Tromethamine 15 mg 07/03/20 15:46 07/03/20 15:53 Toradol IM 07/03/20 15:47 15 mg ONETIME ONE Administration Departure - Departure Time of Disposition: 16:36 Disposition: Home, Self-Care 01 Condition: Fair Clinical Impression: Lumbar strain Qualifiers: Encounter type: initial encounter Qualified Code(s): S39.012A - Strain of muscle, fascia and tendon of lower back, initial encounter - Discharge Information *PRESCRIPTION DRUG MONITORING PROGRAM REVIEWED*: No *COPY OF PRESCRIPTION DRUG MONITORING REPORT IN PATIENT STEVENSON: No Instructions: Back Injury Prevention, [id number], Muscle Strain, [id number], Lumbosacral Strain, Pain Medicine Instructions, [id number] Referrals: Kasi Gonzalez MD [Primary Care Provider] - Forms: ED Department Discharge Additional Instructions: You were evaluated today on an emergent basis. At this time your work-up is negative. You did have an ovarian cyst on your right ovary. You were aware of this however I do recommend continued follow-up with OB and Plastic Surgery Coordinator for management. I do believe you are experiencing lumbar strain as the cause of your back pain. Please use [id number] Tylenol and Motrin for pain relief. Tylenol should be 500 mg to 1000 mg every 6 hours and Motrin 400 mg to 600 mg every 6 hours. I recommend you do this scheduled for the next 2 days and then use as needed after this. You are welcome to use [id number] Voltaren cream or lidocaine cream for symptomatic relief. I do encourage you to work with your primary care physician for weight loss management. If you have any new or worsening symptoms please return to the emergency department [facility] [address] [place], [place] [id number] [address] [address] [facility] [address] [place] [id number] [facility] [address] [place] [id number] The patient is informed of any results of their evaluation and diagnostic workup and all questions are answered. They are given discharge instructions and return precautions. The patient is stable for discharge. The patient states they understand and agree with the plan and that they will return if their symptoms get worse or if they have any new concerns. The following information is given to patients seen in the emergency department who are being discharged to home. This information is to outline your options for follow-up care. We provide all patients seen in our emergency department with a follow-up referral. The need for follow-up, as well as the timing and circumstances, are variable depending upon the specifics of your emergency department visit. If you don't have a primary care physician on staff, we will provide you with a referral. We always advise you to contact your personal physician following an emergency department visit to inform them of the circumstance of the visit and for follow-up with them and/or the need for any referrals to a consulting specialist. The emergency department will also refer you to a specialist when appropriate. This referral assures that you have the opportunity for follow-up care with a specialist. All of these measure are taken in an effort to provide you with optimal care, which includes your follow-up. Under all circumstances we always encourage you to contact your private physician who remains a resource for coordinating your care. When calling for follow-up care, please make the office aware that this follow-up is from your recent emergency room visit. If for any reason you are refused follow-up, please contact the [facility] Emergency Department at and asked to speak to the emergency department charge nurse. Sepsis Event Note (ED) - Evaluation Sepsis Screening Result: No Definite Risk
[2020-07-03 17:20] VITALS: BP 131/80; PULSE 98
== END 2020-07-03 16:50 | disposition home or self-care (01) ==
LOC: MW.ED 13:28
DX: S39.012A Strain of muscle, fascia and tendon of lower back, initial encounter (principal); E78.00 Pure hypercholesterolemia, unspecified; J44.9 Chronic obstructive pulmonary disease, unspecified; E11.9 Type 2 diabetes mellitus without complications; E03.9 Hypothyroidism, unspecified; E66.01 Morbid (severe) obesity due to excess calories; Z68.44 Body mass index [BMI] 60.0-69.9, adult; Z88.1 Allergy status to other antibiotic agents; Z79.4 Long term (current) use of insulin; Z79.899 Other long term (current) drug therapy; Z72.0 Tobacco use; X58.XXXA Exposure to other specified factors, initial encounter
CPT/HCPCS: 36415; 74176; 80048; 81003; 85025; 96372; 99284; J1885

== ENCOUNTER 2021-01-09 02:33 | Emergency (ER) | payer MEDICAID, OTHER ==
[2021-01-09 03:12] LABS: BLOOD UREA NITROGEN,BUN 11 mg/dL (7.0-18.0); CARBON DIOXIDE,CO2 24.8 mmol/L (21.0-32.0); CHLORIDE,CL 98 mmol/L (98-107); GLUCOSE RANDOM 315 mg/dL (74-106); POTASSIUM,K 3.9 mmol/L (3.5-5.1); SODIUM,NA 135 mmol/L (136-145)
--- NOTE | 2021-01-09 03:32 | EDM.PDOC ---
ED HPI GENERAL MEDICAL PROBLEM - General Chief Complaint: Behavioral/Psych Stated Complaint: FALL/DEPRESSION Time Seen by Provider: 01/09/21 03:08 - History of Present Illness INITIAL COMMENTS - FREE TEXT/NARRATIVE: HISTORY AND PHYSICAL: History of present illness: Is a 40-year-old female with history significant for diabetes, asthma, status post cholecystectomy who presents ER today by EMS after being found outside intoxicated in the rain. Patient reports that she is depressed but is not suicidal is not had any suicidal ideation. Patient reports that she quit her job today secondary to people talking badly about her work. Patient reports that after quitting her job she was depressed and went out drinking. Patient reports that she is not a habitual drinker and drinks maybe once a week. Patient reports no prior history of alcohol use or drug use disorder. Patient denies any history of hypertension, liver, kidney disease in the past. Patient denies any history of suicidal attempts in the past requiring admission. Patient denies any recent fevers, shakes, chills, nausea, vomiting, diarrhea, dysuria, frequency, urgency, chest pain, shortness of breath, abdominal pain. Patient reports that she is cold with her close with all wet and would request to be able to sleep for little bit and then would like to go home. Review of systems: As per history of present illness and below otherwise all systems reviewed and negative. Past medical history: As per history of present illness and as reviewed below otherwise noncontributory. Surgical history: As per history of present illness and as reviewed below otherwise noncontributory. Social history: No reported history of drug abuse. Family history: As per history of present illness and as reviewed below otherwise noncontributory. Physical exam: This patient was seen and evaluated during the 2019 SARS-CoV-2 novel coronavirus pandemic period. Community viral transmission is ongoing at time of this encounter and the emergency department is operating under pandemic response procedures. Constitutional: Patient is oriented to person, place, and time. Appears well- developed and well-nourished. No distress. HEENT: Moist mucous membranes Head: Normocephalic and atraumatic Eyes: Right eye exhibits no discharge. Left eye exhibits no discharge. No scleral icterus Neck: Normal range of motion. No tracheal deviation present. Cardiovascular: Normal rate and regular rhythm. Pulmonary: Effort normal, no respiratory distress. Abdominal: No distention Musculoskeletal: Normal range of motion Neurologic: Alert and oriented to person, place and time. Skin: [place], warm and dry. Psychiatric: Normal mood and affect. Behavior is normal. Judgment and thought content normal. Nursing note and vital signs have been reviewed Assessment and plan: This is a 40-year-old female who presents ER today secondary to alcohol taxation to being outdoors in the rain. At this time, the patient reports she just wants to sleep and get some rest. She reports that she lives with a roommate who is an alcoholic and she does not want to be there at this time. Patient denies any suicidal or homicidal ideations. Patient has any auditory visualizations. Patient's physical exam is unremarkable. At this time I feel that the patient is clinically hemodynamically stable for discharge home once clinically sober. Patient is alert awake and orient x3 patient is ambulating ED with stable gait. Patient be discharged home in stable condition. Patient once again reviewed iterated that she has no thoughts of self-harm or plans of self-harm. Reassessment at the time of disposition demonstrates that the patient is in no acute distress. The patient has remained stable throughout the entire ED visit and is without objective evidence for acute process requiring urgent intervention or hospitalization. The patient is stable for discharge, counseling is provided as documented above, discussed symptomatic treatment and specific conditions for return. I have spoken with the patient/caregiver and discussed todays findings, in addition to providing specific details for the plan of care. Questions are answered and there is agreement with the plan. Definitive disposition and diagnosis as appropriate pending reevaluation and review of above. - Related Data Allergies Allergy/AdvReac Type Severity Reaction Status Date / Time piperacillin sodium AdvReac Nausea and Verified 01/09/21 02:45 [From Zosyn] Vomiting tazobactam sodium AdvReac Nausea and Verified 01/09/21 02:45 [From Zosyn] Vomiting Home Meds: Home Meds Furosemide [Lasix] 20 mg PO DAILY 10/30/13 [History] Gabapentin [Neurontin] 300 mg PO BID 10/30/13 [History] metFORMIN [Glucophage] 1,000 mg PO BIDMEALS 03/01/15 [History] Citalopram [Celexa] 60 mg PO BEDTIME 10/13/15 [History] Levothyroxine Sodium [Synthroid] 300 mcg PO ACBREAKFAST 10/14/15 [History] Fenofibrate 48 mg PO DAILY 05/12/16 [History] Potassium Chloride 10 meq PO DAILY 05/12/16 [History] Liraglutide [Victoza 3-Gaudencio] 0.6 mg SQ DAILY 11/25/17 [History] Empagliflozin [Jardiance] 25 mg PO DAILY 07/12/19 [History] Omeprazole 20 mg PO DAILY 07/12/19 [History] Ondansetron [Zofran ODT] 4 mg PO Q6H PRN #12 tab.dis 07/12/19 [Rx] atorvaSTATin [Lipitor] 10 mg PO DAILY 07/12/19 [History] Budesonide/Formoterol Fumarate [Symbicort 160-4.5 Mcg Inhaler] 2 puff INH BID 06/01/20 [History] Cyclobenzaprine [Flexeril] 10 mg PO TID PRN #20 tab 06/01/20 [Rx] Ibuprofen 600 mg PO Q6HR PRN #30 tablet 06/01/20 [Rx] Insulin Glarg,Human.Rec.Analog [Lantus] 3 units INJECT DAILY 06/01/20 [History] Insulin Aspart [NovoLOG] 5 units INJECT ASDIRECTED 07/03/20 [History] Past Medical History HEENT History: Reports: None Cardiovascular History: Reports: High Cholesterol Respiratory History: Reports: Asthma, COPD, Pneumonia, Recurrent, Sleep Apnea, Other (See Below) Other Respiratory History: uses BiPAP at home Gastrointestinal History: Reports: GERD Genitourinary History: Reports: None 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 (See Below) Musculoskeletal History: Reports: Arthritis Neurological History: Reports: None Psychiatric History: Reports: Anxiety, Depression, Suicide Attempt, Suicidal Ideation Other Psychiatric History: mood disorder, borderline personality disorder Endocrine/Metabolic History: Reports: Diabetes, Type II, Hypothyroidism, Obesity/BMI 30+ Hematologic History: Reports: None Immunologic History: Reports: None Oncologic (Cancer) History: Reports: None Dermatologic History: Reports: Cellulitis, Other (See Below) Other Dermatologic History: skin abcess/infections - Infectious Disease History Infectious Disease History: Reports: Chicken Pox - Past Surgical History Head Surgeries/Procedures: Reports: None HEENT Surgical History: Reports: Adenoidectomy, Tonsillectomy Cardiovascular Surgical History: Reports: None Respiratory Surgical History: Reports: None GI Surgical History: Reports: Cholecystectomy Musculoskeletal Surgical History: Reports: None Social & Family History - Family History Family Medical History: No Pertinent Family History Cardiac: Reports: High Cholesterol, Other (See Below) Other Cardiac Family History: heart attack Respiratory: Reports: Asthma, COPD GI: Reports: None : Reports: None OBGYN: Reports: Musculoskeletal: Reports: Arthritis Neurological: Reports: Alzheimers Disease, CVA Psychiatric: Reports: Anxiety, Depression, Panic Attack Endocrine/Metabolic: Reports: Diabetes, Type I, Diabetes, type II Oncologic: Reports: Pancreatic - Caffeine Use Caffeine Use: Reports: Tea - Recreational Drug Use Recreational Drug Use: No ED ROS GENERAL - Review of Systems Review Of Systems: See Below ED EXAM, GENERAL - Physical Exam Exam: See Below Course - Vital Signs Last Recorded V/S: Last Vital Signs Temp 98 F 01/09/21 02:37 Pulse 105 H 01/09/21 02:37 Resp 20 01/09/21 02:37 BP 115/66 01/09/21 02:37 Pulse Ox 98 01/09/21 02:37 - Orders/Labs/Meds Labs: Laboratory Tests 01/09/21 01/09/21 01/09/21 Range/Units 02:46 02:50 02:50 WBC 9.67 (4.0-11.0) K/uL RBC 4.59 (4.30-5.90) M/uL Hgb 15.0 (12.0-16.0) g/dL Hct 42.4 (36.0-46.0) % MCV 92.4 (80.0-98.0) fL MCH 32.7 H (27.0-32.0) pg MCHC 35.4 (31.0-37.0) g/dL RDW Std Deviation 43.8 (28.0-62.0) fl RDW Coeff of [place] 13 (11.0-15.0) % Plt Count 139 L (150-400) K/uL MPV 13.80 H (7.40-12.00) fL Neut % (Auto) 69.5 (48.0-80.0) % Lymph % (Auto) 20.2 (16.0-40.0) % [place] % (Auto) 7.8 (0.0-15.0) % Eos % (Auto) 2.2 (0.0-7.0) % Baso % (Auto) 0.3 (0.0-1.5) % Neut # (Auto) 6.7 H (1.4-5.7) K/uL Lymph # (Auto) 2.0 (0.6-2.4) K/uL Bryan # (Auto) 0.8 (0.0-0.8) K/uL Eos # (Auto) 0.2 (0.0-0.7) K/uL Baso # (Auto) 0.0 (0.0-0.1) K/uL Nucleated RBC % 0.0 /100WBC Nucleated RBCs # 0 K/uL Sodium 135 L (136-145) mmol/L Potassium 3.9 (3.5-5.1) mmol/L Chloride 98 (98-107) mmol/L Carbon Dioxide 24.8 (21.0-32.0) mmol/L BUN 11 (7.0-18.0) mg/dL Creatinine 1.1 H (0.6-1.0) mg/dL Est Cr Clr Drug Dosing TNP Estimated GFR (MDRD) 55.0 ml/min Glucose 315 H (74-106) mg/dL Calcium 9.2 (8.5-10.1) mg/dL Total Bilirubin 0.3 (0.2-1.0) mg/dL AST 155 H (15-37) IU/L ALT 287 H (14-63) IU/L Alkaline Phosphatase 92 (46-116) U/L Total Protein 7.8 (6.4-8.2) g/dL Albumin 3.9 (3.4-5.0) g/dL Globulin 3.9 (2.6-4.0) g/dL Albumin/Globulin Ratio 1.0 (0.9-1.6) Urine Opiates Screen (NEGATIVE) Ur Oxycodone Screen (NEGATIVE) Urine Methadone Screen (NEGATIVE) Ur Barbiturates Screen (NEGATIVE) Ur Phencyclidine Scrn (NEGATIVE) Ur Amphetamine Screen (NEGATIVE) U Methamphetamines Scrn (NEGATIVE) U Benzodiazepines Scrn (NEGATIVE) U Cocaine Metab Screen (NEGATIVE) U Marijuana (THC) Screen (NEGATIVE) Ethyl Alcohol 222 mg/dL SARS-CoV-2 RNA (HENNA) NEGATIVE (NEGATIVE) 01/09/21 Range/Units 03:20 WBC (4.0-11.0) K/uL RBC (4.30-5.90) M/uL Hgb (12.0-16.0) g/dL Hct (36.0-46.0) % MCV (80.0-98.0) fL MCH (27.0-32.0) pg MCHC (31.0-37.0) g/dL RDW Std Deviation (28.0-62.0) fl RDW Coeff of [place] (11.0-15.0) % Plt Count (150-400) K/uL MPV (7.40-12.00) fL Neut % (Auto) (48.0-80.0) % Lymph % (Auto) (16.0-40.0) % [place] % (Auto) (0.0-15.0) % Eos % (Auto) (0.0-7.0) % Baso % (Auto) (0.0-1.5) % Neut # (Auto) (1.4-5.7) K/uL Lymph # (Auto) (0.6-2.4) K/uL Bryan # (Auto) (0.0-0.8) K/uL Eos # (Auto) (0.0-0.7) K/uL Baso # (Auto) (0.0-0.1) K/uL Nucleated RBC % /100WBC Nucleated RBCs # K/uL Sodium (136-145) mmol/L Potassium (3.5-5.1) mmol/L Chloride (98-107) mmol/L Carbon Dioxide (21.0-32.0) mmol/L BUN (7.0-18.0) mg/dL Creatinine (0.6-1.0) mg/dL Est Cr Clr Drug Dosing Estimated GFR (MDRD) ml/min Glucose (74-106) mg/dL Calcium (8.5-10.1) mg/dL Total Bilirubin (0.2-1.0) mg/dL AST (15-37) IU/L ALT (14-63) IU/L Alkaline Phosphatase (46-116) U/L Total Protein (6.4-8.2) g/dL Albumin (3.4-5.0) g/dL Globulin (2.6-4.0) g/dL Albumin/Globulin Ratio (0.9-1.6) Urine Opiates Screen NEGATIVE (NEGATIVE) Ur Oxycodone Screen NEGATIVE (NEGATIVE) Urine Methadone Screen NEGATIVE (NEGATIVE) Ur Barbiturates Screen NEGATIVE (NEGATIVE) Ur Phencyclidine Scrn NEGATIVE (NEGATIVE) Ur Amphetamine Screen NEGATIVE (NEGATIVE) U Methamphetamines Scrn NEGATIVE (NEGATIVE) U Benzodiazepines Scrn NEGATIVE (NEGATIVE) U Cocaine Metab Screen NEGATIVE (NEGATIVE) U Marijuana (THC) Screen NEGATIVE (NEGATIVE) Ethyl Alcohol mg/dL SARS-CoV-2 RNA (HENNA) (NEGATIVE) Departure - Departure Time of Disposition: 07:00 Disposition: Home, Self-Care 01 Condition: Good Clinical Impression: Alcohol intoxication, Depression - Discharge Information Instructions: Alcohol Intoxication, [id number], Major Depressive Disorder, Adult, [id number] Referrals: PCP,None [Primary Care Provider] - Forms: ED Department Discharge Additional Instructions: Your seen and evaluated in the ER today secondary to alcohol intoxication and depression. It appears that you were found outdoors in the rain by the police intoxicated. In the ER, your blood tests were all normal except for an elevated alcohol level. Please go home and get plenty of rest and drink plenty of liquids today. Please make an appointment see your family doctor in the next 1 to 2 days. The following information is given to patients seen in the emergency department who are being discharged to home. This information is to outline your options for follow-up care. We provide all patients seen in our emergency department with a follow-up referral. The need for follow-up, as well as the timing and circumstances, are variable depending upon the specifics of your emergency department visit. If you don't have a primary care physician on staff, we will provide you with a referral. We always advise you to contact your personal physician following an emergency department visit to inform them of the circumstance of the visit and for follow-up with them and/or the need for any referrals to a consulting spec ialist. The emergency department will also refer you to a specialist when appropriate. This referral assures that you have the opportunity for follow-up care with a specialist. All of these measure are taken in an effort to provide you with optimal care, which includes your follow-up. Under all circumstances we always encourage you to contact your private physician who remains a resource for coordinating your care. When calling for follow-up care, please make the office aware that this follow-up is from your recent emergency room visit. If for any reason you are refused follow-up, please contact the [facility] Emergency Department at and asked to speak to the emergency department charge nurse. [facility] [address] [place] [id number] [id number] Sepsis Event Note (ED) - Evaluation Sepsis Screening Result: No Definite Risk - Focused Exam Vital Signs: Vital Signs Temp Pulse Resp BP Pulse Ox 01/09/21 02:37 98 F 105 H 20 115/66 98
[2021-01-09 06:32] VITALS: BP 147/70; PULSE 87
== END 2021-01-09 06:43 | disposition home or self-care (01) ==
LOC: MW.ED 02:33
DX: F32.9 Major depressive disorder, single episode, unspecified (principal); F10.129 Alcohol abuse with intoxication, unspecified; E78.00 Pure hypercholesterolemia, unspecified; J44.9 Chronic obstructive pulmonary disease, unspecified; K21.9 Gastro-esophageal reflux disease without esophagitis; E03.9 Hypothyroidism, unspecified; E11.9 Type 2 diabetes mellitus without complications; E66.9 Obesity, unspecified; Z79.4 Long term (current) use of insulin; Z68.30 Body mass index [BMI] 30.0-30.9, adult; Z79.899 Other long term (current) drug therapy; Z88.1 Allergy status to other antibiotic agents; Z88.8 Allergy status to other drugs, medicaments and biological substances; Z20.822 Contact with and (suspected) exposure to COVID-19; Y90.7 Blood alcohol level of 200-239 mg/100 ml
CPT/HCPCS: 36415; 80053; 80305-QW; 80307; 85025; 99283; 99284; U0002

== ENCOUNTER 2021-01-16 01:02 | Emergency (ER) | payer MEDICAID ==
--- NOTE | 2021-01-16 01:33 | EDM.PDOC ---
ED HPI GENERAL MEDICAL PROBLEM - General Chief Complaint: Abdominal Pain Stated Complaint: ABDOMINAL PAIN Time Seen by Provider: 01/16/21 01:03 - History of Present Illness INITIAL COMMENTS - FREE TEXT/NARRATIVE: History of present illness: [] Patient reports abdominal pain for 3 days and is getting worse over the last 24 hours. It is in the right upper quadrant. It radiates to her back. Originally she said she never had the pain before. Then she said she has had multiple CT scans for similar pain in different parts of her belly. She has had her gallbladder out before and is being worked up for hepatitis. She says there is no chance of her being . Patient has nausea without vomiting. She does not have diarrhea constipation or urinary dysfunction. She does not have fever and chills. Review of systems: As per history of present illness and below otherwise all systems reviewed and negative. Past medical history: As per history of present illness and as reviewed below otherwise noncontributory. Surgical history: As per history of present illness and as reviewed below otherwise noncontributory. Social history: No reported history of drug or alcohol abuse. Family history: As per history of present illness and as reviewed below otherwise noncontributory. Physical exam: Constitutional - well developed, well-nourished and in no acute distress HEENT - normocephalic, no evidence of trauma - external nose and mouth normal - no mass in neck and no JVD - mucosae moist EYES - full EOM, PERRL, no icterus - no evidence of inflammation, injection, or drainage Respiratory - no respiratory distress, equal bilateral expansion, lungs clear to auscultation and no abnormal lung sounds Cardiovascular - Regular Rhythm with S1 and S2 appreciated and no murmur, gallop or rub. GI -tender right upper quadrant-abdomen soft without distension or organomegaly - normal bowel sounds - no guard or rebound Musculoskeletal no gross deformity of long bones or joints - no tenderness, swelling or edema Neurologic - Alert and oriented times four - CN II-XII grossly intact - motor sensory and coordination symmetrically normal Psychiatric - appropriate mood and affect with normal thought content Hematologic - No petechiae or purpura - mucosa appropriate color and sclera not pale - normal nail bed color and refill Integument - no rash or evidence of trauma - normal turgor Diagnostics: [] Therapeutics: [] Impression: [] Plan: [] Definitive disposition and diagnosis as appropriate pending reevaluation and review of above. Abdomen Pain Score (Numeric/FACES): 7 - Related Data Allergies Allergy/AdvReac Type Severity Reaction Status Date / Time piperacillin sodium AdvReac Nausea and Verified 01/16/21 01:13 [From Zosyn] Vomiting tazobactam sodium AdvReac Nausea and Verified 01/16/21 01:13 [From Zosyn] Vomiting Home Meds: Home Meds Furosemide [Lasix] 20 mg PO DAILY 10/30/13 [History] Gabapentin [Neurontin] 300 mg PO BID 10/30/13 [History] metFORMIN [Glucophage] 1,000 mg PO BIDMEALS 03/01/15 [History] Citalopram [Celexa] 60 mg PO BEDTIME 10/13/15 [History] Levothyroxine Sodium [Synthroid] 300 mcg PO ACBREAKFAST 10/14/15 [History] Fenofibrate 48 mg PO DAILY 05/12/16 [History] Potassium Chloride 10 meq PO DAILY 05/12/16 [History] Liraglutide [Victoza 3-Gaudencio] 0.6 mg SQ DAILY 11/25/17 [History] Empagliflozin [Jardiance] 25 mg PO DAILY 07/12/19 [History] Omeprazole 20 mg PO DAILY 07/12/19 [History] Ondansetron [Zofran ODT] 4 mg PO Q6H PRN #12 tab.dis 07/12/19 [Rx] atorvaSTATin [Lipitor] 10 mg PO DAILY 07/12/19 [History] Budesonide/Formoterol Fumarate [Symbicort 160-4.5 Mcg Inhaler] 2 puff INH BID 06/01/20 [History] Cyclobenzaprine [Flexeril] 10 mg PO TID PRN #20 tab 06/01/20 [Rx] Ibuprofen 600 mg PO Q6HR PRN #30 tablet 06/01/20 [Rx] Insulin Glarg,Human.Rec.Analog [Lantus] 3 units INJECT DAILY 06/01/20 [History] Insulin Aspart [NovoLOG] 5 units INJECT ASDIRECTED 07/03/20 [History] Past Medical History HEENT History: Reports: None Cardiovascular History: Reports: High Cholesterol Respiratory History: Reports: Asthma, COPD, Pneumonia, Recurrent, Sleep Apnea, Other (See Below) Other Respiratory History: uses BiPAP at home Gastrointestinal History: Reports: GERD Genitourinary History: Reports: None 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: Reports: Other (See Below) Musculoskeletal History: Reports: Arthritis Neurological History: Reports: None Psychiatric History: Reports: Anxiety, Depression, Suicide Attempt, Suicidal Ideation Other Psychiatric History: mood disorder, borderline personality disorder Endocrine/Metabolic History: Reports: Diabetes, Type II, Hypothyroidism, Obesity/BMI 30+ 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 Model and Construction Inspector: None Hematologic History: Reports: None Immunologic History: Reports: None Oncologic (Cancer) History: Reports: None Dermatologic History: Reports: Cellulitis, Other (See Below) Other Dermatologic History: skin abcess/infections - Infectious Disease History Infectious Disease History: Reports: Chicken Pox - Past Surgical History Head Surgeries/Procedures: Reports: None HEENT Surgical History: Reports: Adenoidectomy, Tonsillectomy Cardiovascular Surgical History: Reports: None Respiratory Surgical History: Reports: None GI Surgical History: Reports: Cholecystectomy Musculoskeletal Surgical History: Reports: None Social & Family History - Family History Family Medical History: No Pertinent Family History Cardiac: Reports: High Cholesterol, Other (See Below) Other Cardiac Family History: heart attack Respiratory: Reports: Asthma, COPD GI: Reports: None : Reports: None OBGYN: Reports: Musculoskeletal: Reports: Arthritis Neurological: Reports: Alzheimers Disease, CVA Psychiatric: Reports: Anxiety, Depression, Panic Attack Endocrine/Metabolic: Reports: Diabetes, Type I, Diabetes, type II Oncologic: Reports: Pancreatic - Caffeine Use Caffeine Use: Reports: Tea - Recreational Drug Use Recreational Drug Use: No ED ROS GENERAL - Review of Systems Review Of Systems: Comprehensive ROS is negative, except as noted in HPI. ED EXAM, GENERAL - Physical Exam Exam: See Below Free Text/Narrative:: My physical exam is in the HPI Course - Vital Signs Text/Narrative:: Transaminases are elevated white count is normal. No suspicion of surgical condition at this point. Plan to continue follow-up with her PMD who is doing a hepatitis work-up. Last Recorded V/S: Last Vital Signs Temp 36.2 C 01/16/21 01:10 Pulse 106 H 01/16/21 01:10 Resp 18 01/16/21 01:10 BP 127/74 01/16/21 01:10 Pulse Ox 97 01/16/21 01:10 - Orders/Labs/Meds Labs: Laboratory Tests 01/16/21 01/16/21 01/16/21 Range/Units 01:10 01:28 01:28 WBC 7.80 (4.0-11.0) K/uL RBC 4.57 (4.30-5.90) M/uL Hgb 15.0 (12.0-16.0) g/dL Hct 41.9 (36.0-46.0) % MCV 91.7 (80.0-98.0) fL MCH 32.8 H (27.0-32.0) pg MCHC 35.8 (31.0-37.0) g/dL RDW Std Deviation 43.8 (28.0-62.0) fl RDW Coeff of [place] 13 (11.0-15.0) % Plt Count 152 (150-400) K/uL MPV 14.30 H (7.40-12.00) fL Neut % (Auto) 64.9 (48.0-80.0) % Lymph % (Auto) 23.5 (16.0-40.0) % [place] % (Auto) 8.1 (0.0-15.0) % Eos % (Auto) 3.1 (0.0-7.0) % Baso % (Auto) 0.4 (0.0-1.5) % Neut # (Auto) 5.1 (1.4-5.7) K/uL Lymph # (Auto) 1.8 (0.6-2.4) K/uL [place] # (Auto) 0.6 (0.0-0.8) K/uL Eos # (Auto) 0.2 (0.0-0.7) K/uL Baso # (Auto) 0.0 (0.0-0.1) K/uL Nucleated RBC % 0.0 /100WBC Nucleated RBCs # 0 K/uL Sodium 133 L (136-145) mmol/L Potassium 3.6 (3.5-5.1) mmol/L Chloride 97 L (98-107) mmol/L Carbon Dioxide 23.3 (21.0-32.0) mmol/L BUN 8 (7.0-18.0) mg/dL Creatinine 0.7 (0.6-1.0) mg/dL Est Cr Clr Drug Dosing 76.74 mL/min Estimated GFR (MDRD) > 60.0 ml/min Glucose 242 H (74-106) mg/dL Calcium 8.7 (8.5-10.1) mg/dL Total Bilirubin 0.4 (0.2-1.0) mg/dL AST 240 H (15-37) IU/L ALT 401 H (14-63) IU/L Alkaline Phosphatase 89 (46-116) U/L Total Protein 7.8 (6.4-8.2) g/dL Albumin 3.8 (3.4-5.0) g/dL Globulin 4.0 (2.6-4.0) g/dL Albumin/Globulin Ratio 0.9 (0.9-1.6) Lipase 260 (73-393) U/L Urine Color YELLOW Urine Appearance HAZY Urine pH 5.5 (5.0-8.0) Ur Specific [place] <= 1.005 (1.001-1.035) Urine Protein NEGATIVE (NEGATIVE) mg/dL Urine Glucose (UA) >=1000 (NEGATIVE) mg/dL Urine Ketones NEGATIVE (NEGATIVE) mg/dL Urine Occult Blood LARGE H (NEGATIVE) Urine Nitrite NEGATIVE (NEGATIVE) Urine Bilirubin NEGATIVE (NEGATIVE) Urine Urobilinogen 0.2 (<2.0) EU/dL Ur Leukocyte Esterase NEGATIVE (NEGATIVE) Urine RBC 1-4 (0-2/HPF) Urine WBC 0-1 (0-5/HPF) Ur Epithelial Cells RARE (NONE-FEW) Urine Bacteria RARE (NEGATIVE) Departure - Departure Time of Disposition: 02:34 Disposition: Home, Self-Care 01 Clinical Impression: Abdominal pain, Elevated transaminase level - Discharge Information Instructions: Abdominal Pain, Adult Referrals: Kasi Gonzalez MD [Primary Care Provider] - Forms: ED Department Discharge Additional Instructions: Naproxen or ibuprofen for pain because of the things go through the liver. Continue with your hepatitis work-up with your PMD. [facility] [address] [place] [id number] [address] The following information is given to patients seen in the emergency department who are being discharged to home. This information is to outline your options for follow-up care. We provide all patients seen in our emergency department with a follow-up referral. The need for follow-up, as well as the timing and circumstances, are variable depending upon the specifics of your emergency department visit. If you don't have a primary care physician on staff, we will provide you with a referral. We always advise you to contact your personal physician following an emergency department visit to inform them of the circumstance of the visit and for follow-up with them and/or the need for any referrals to a consulting specialist. The emergency department will also refer you to a specialist when appropriate. This referral assures that you have the opportunity for follow-up care with a specialist. All of these measure are taken in an effort to provide you with optimal care, which includes your follow-up. Under all circumstances we always encourage you to contact your private physician who remains a resource for coordinating your care. When calling for follow-up care, please make the office aware that this follow-up is from your recent emergency room visit. If for any reason you are refused follow-up, please contact the [facility] Emergency Department at and asked to speak to the emergency department charge nurse. Sepsis Event Note (ED) - Focused Exam Vital Signs: Vital Signs Temp Pulse Resp BP Pulse Ox 01/16/21 01:10 36.2 C 106 H 18 127/74 97
[2021-01-16 02:24] LABS: BLOOD UREA NITROGEN,BUN 8 mg/dL (7.0-18.0); CARBON DIOXIDE,CO2 23.3 mmol/L (21.0-32.0); CHLORIDE,CL 97 mmol/L (98-107); GLUCOSE RANDOM 242 mg/dL (74-106); LIPASE 260 U/L (73-393); POTASSIUM,K 3.6 mmol/L (3.5-5.1); SODIUM,NA 133 mmol/L (136-145)
[2021-01-16 04:37] VITALS: BP 107/62; PULSE 89
== END 2021-01-16 02:15 | disposition home or self-care (01) ==
LOC: MW.ED 01:02
DX: R10.11 Right upper quadrant pain (principal); R74.01 Elevation of levels of liver transaminase levels; J44.9 Chronic obstructive pulmonary disease, unspecified; K21.9 Gastro-esophageal reflux disease without esophagitis; M19.90 Unspecified osteoarthritis, unspecified site; E11.9 Type 2 diabetes mellitus without complications; E03.9 Hypothyroidism, unspecified; E66.9 Obesity, unspecified; Z68.43 Body mass index [BMI] 50.0-59.9, adult; Z88.0 Allergy status to penicillin; Z79.899 Other long term (current) drug therapy; Z79.4 Long term (current) use of insulin
CPT/HCPCS: 36415; 80053; 81001; 83690; 85025; 99284

== ENCOUNTER 2021-02-14 21:47 | Emergency (ER) | payer MEDICAID ==
[2021-02-14] MEDS ORDERED: Sodium Chloride 0.9% 10 ML Syringe FLUSH PRN (23:38)
[2021-02-14] MEDS ORDERED: Sodium Chloride 0.9% 2.5 ML Syringe FLUSH PRN (23:38)
[2021-02-15 00:54] LABS: BLOOD UREA NITROGEN,BUN 14 mg/dL (7.0-18.0); CARBON DIOXIDE,CO2 24.5 mmol/L (21.0-32.0); CHLORIDE,CL 96 mmol/L (98-107); GLUCOSE RANDOM 416 mg/dL (74-106); LIPASE 449 U/L (73-393); POTASSIUM,K 3.9 mmol/L (3.5-5.1); SODIUM,NA 135 mmol/L (136-145)
[2021-02-15] MEDS ORDERED: fentaNYL 50 MCG/ML SDV IVPUSH ONE (00:56)
[2021-02-15] MEDS ORDERED: Ondansetron 4 MG Tab.DIS PO ONE (00:56)
[2021-02-15] MEDS ORDERED: fentaNYL 50 MCG/ML SDV IM ONE (01:11)
--- NOTE | 2021-02-15 02:16 | EDM.PDOC ---
ED HPI GENERAL MEDICAL PROBLEM - General Chief Complaint: Abdominal Pain Stated Complaint: POSSIBLE LIVER PROBLEMS Time Seen by Provider: 02/15/21 00:41 - History of Present Illness INITIAL COMMENTS - FREE TEXT/NARRATIVE: HISTORY AND PHYSICAL: History of present illness: This is a 40-year-old female with history significant for chronic abdominal discomfort presumed secondary to liver disease who is currently in the midst of a full evaluation for elevated LFTs who presents ER today secondary to recurrence of her right upper quadrant abdominal discomfort that has not been resolved with her usual pain medicines. Patient denies any recent fevers, shakes, chills, nausea, vomiting, diarrhea, dysuria, frequency, urgency, chest pain, shortness of breath. Patient denies any melena or bright red blood per rectum. Patient reports that she has been able to tolerate p.o. solids and liquids well. Patient reports that she is scheduled for a liver biopsy in the next 2 weeks to help determine the cause of her pain and discomfort. In the meantime, her doctor is requested that she come to the ED if she has pain not controlled that we can assist her with it. Review of systems: As per history of present illness and below otherwise all systems reviewed and negative. Past medical history: As per history of present illness and as reviewed below otherwise noncontributory. Surgical history: As per history of present illness and as reviewed below otherwise noncontributory. Social history: No reported history of drug abuse. Family history: As per history of present illness and as reviewed below otherwise noncontrib utory. Physical exam: This patient was seen and evaluated during the 2019 SARS-CoV-2 novel coronavirus pandemic period. Community viral transmission is ongoing at time of this encounter and the emergency department is operating under pandemic response procedures. Constitutional: Patient is oriented to person, place, and time. Appears well- developed and well-nourished. No distress. HEENT: Moist mucous membranes Head: Normocephalic and atraumatic Eyes: Right eye exhibits no discharge. Left eye exhibits no discharge. No scleral icterus Neck: Normal range of motion. No tracheal deviation present. Cardiovascular: Normal rate and regular rhythm. Pulmonary: Effort normal, no respiratory distress. Abd: Soft, nondistended, no rebound/guarding, no psoas or obturator signs, no tenderness at Mcberney's point, no Oh's sign. Pt does not present with an exam that would be consistent with an acute surgical abdomen at this time. Tenderness palpation right upper quadrant Musculoskeletal: Normal range of motion Neurologic: Alert and oriented to person, place and time. Skin: [place], warm and dry. Psychiatric: Normal mood and affect. Behavior is normal. Judgment and thought content normal. Nursing note and vital signs have been reviewed Diagnostics: [] Therapeutics: [] Assessment and plan: 40-year-old female who presents ER today secondary to recurrence of her chronic abdominal discomfort. Patient was given fentanyl and Zofran here in the ED and reports that she feels much improved. Patient's labs are all unremarkable at this time. Patient's lipase is slightly elevated but not significant enough to categorize it is pancreatitis. Patient will be discharged home at this time with instructions to rest, drink plenty of liquids and to call her doctor in the morning for further evaluation. Reassessment at the time of disposition demonstrates that the patient is in no acute distress. The patient has remained stable throughout the entire ED visit and is without objective evidence for acute process requiring urgent intervention or hospitalization. The patient is stable for discharge, counseling is provided as documented above, discussed symptomatic treatment and specific conditions for return. I have spoken with the patient/caregiver and discussed todays findings, in addition to providing specific details for the plan of care. Questions are answe red and there is agreement with the plan. Definitive disposition and diagnosis as appropriate pending reevaluation and review of above. right upper quadrant Pain Score (Numeric/FACES): 9 - Related Data Allergies Allergy/AdvReac Type Severity Reaction Status Date / Time piperacillin sodium AdvReac Nausea and Verified 02/14/21 21:58 [From Zosyn] Vomiting tazobactam sodium AdvReac Nausea and Verified 02/14/21 21:58 [From Zosyn] Vomiting Home Meds: Home Meds Furosemide [Lasix] 20 mg PO DAILY 10/30/13 [History] Gabapentin [Neurontin] 300 mg PO BID 10/30/13 [History] metFORMIN [Glucophage] 1,000 mg PO BIDMEALS 03/01/15 [History] Citalopram [Celexa] 60 mg PO BEDTIME 10/13/15 [History] Levothyroxine Sodium [Synthroid] 300 mcg PO ACBREAKFAST 10/14/15 [History] Fenofibrate 48 mg PO DAILY 05/12/16 [History] Potassium Chloride 10 meq PO DAILY 05/12/16 [History] Liraglutide [Victoza 3-Gaudencio] 0.6 mg SQ DAILY 11/25/17 [History] Empagliflozin [Jardiance] 25 mg PO DAILY 07/12/19 [History] Omeprazole 20 mg PO DAILY 07/12/19 [History] Ondansetron [Zofran ODT] 4 mg PO Q6H PRN #12 tab.dis 07/12/19 [Rx] atorvaSTATin [Lipitor] 10 mg PO DAILY 07/12/19 [History] Budesonide/Formoterol Fumarate [Symbicort 160-4.5 Mcg Inhaler] 2 puff INH BID 06/01/20 [History] Cyclobenzaprine [Flexeril] 10 mg PO TID PRN #20 tab 06/01/20 [Rx] Ibuprofen 600 mg PO Q6HR PRN #30 tablet 06/01/20 [Rx] Insulin Glarg,Human.Rec.Analog [Lantus] 3 units INJECT DAILY 06/01/20 [History] Insulin Aspart [NovoLOG] 5 units INJECT ASDIRECTED 07/03/20 [History] Past Medical History HEENT History: Reports: None Cardiovascular History: Reports: High Cholesterol Respiratory History: Reports: Asthma, COPD, Pneumonia, Recurrent, Sleep Apnea, Other (See Below) Other Respiratory History: uses BiPAP at home Gastrointestinal History: Reports: GERD Genitourinary History: Reports: None 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: Reports: Other (See Below) Musculoskeletal History: Reports: Arthritis Neurological History: Reports: None Psychiatric History: Reports: Anxiety, Depression, Suicide Attempt, Suicidal Ideation Other Psychiatric History: mood disorder, borderline personality disorder Endocrine/Metabolic History: Reports: Diabetes, Type II, Hypothyroidism, Obesity/BMI 30+ Insulin Pump Model and Shoes Hand Sewer: None Hematologic History: Reports: None Immunologic History: Reports: None Oncologic (Cancer) History: Reports: None Dermatologic History: Reports: Cellulitis, Other (See Below) Other Dermatologic History: skin abcess/infections - Infectious Disease History Infectious Disease History: Reports: Chicken Pox - Past Surgical History Head Surgeries/Procedures: Reports: None HEENT Surgical History: Reports: Adenoidectomy, Tonsillectomy Cardiovascular Surgical History: Reports: None Respiratory Surgical History: Reports: None GI Surgical History: Reports: Cholecystectomy Musculoskeletal Surgical History: Reports: None Social & Family History - Family History Family Medical History: No Pertinent Family History Cardiac: Reports: High Cholesterol, Other (See Below) Other Cardiac Family History: heart attack Respiratory: Reports: Asthma, COPD GI: Reports: None : Reports: None OBGYN: Reports: Musculoskeletal: Reports: Arthritis Neurological: Reports: Alzheimers Disease, CVA Psychiatric: Reports: Anxiety, Depression, Panic Attack Endocrine/Metabolic: Reports: Diabetes, Type I, Diabetes, type II Oncologic: Reports: Pancreatic - Tobacco Use Tobacco Use Status *Q: Current Every Day Tobacco User Years of Tobacco use: 20 Packs/Tins Daily: 1 - Caffeine Use Caffeine Use: Reports: Tea - Recreational Drug Use Recreational Drug Use: No ED ROS GENERAL - Review of Systems Review Of Systems: See Below ED EXAM, GENERAL - Physical Exam Exam: See Below Course - Vital Signs Last Recorded V/S: Last Vital Signs Temp 97.4 F 02/14/21 21:56 Pulse 84 02/15/21 00:47 Resp 17 02/15/21 00:47 BP 131/74 02/15/21 00:47 Pulse Ox 95 02/15/21 00:47 - Orders/Labs/Meds Orders: Active Orders 24 hr Category Date Time Status Sodium Chloride 0.9% [Saline Flush] Med 02/14/21 23:38 Active 10 ml FLUSH ASDIRECTED PRN Sodium Chloride 0.9% [Saline Flush] Med 02/14/21 23:38 Active 2.5 ml FLUSH ASDIRECTED PRN Saline Lock Insert [OM.PC] Stat Oth 02/14/21 23:38 Ordered Medication Orders Sodium Chloride (Sodium Chloride 0.9% 10 Ml Syringe) 10 ml FLUSH ASDIRECTED PRN PRN Reason: Keep Vein Open Sodium Chloride (Sodium Chloride 0.9% 2.5 Ml Syringe) 2.5 ml FLUSH ASDIRECTED PRN PRN Reason: Keep Vein Open Labs: Laboratory Tests 02/14/21 02/14/21 Range/Units 00:17 00:17 WBC 8.82 (4.0-11.0) K/uL RBC 4.66 (4.30-5.90) M/uL Hgb 14.9 (12.0-16.0) g/dL Hct 42.9 (36.0-46.0) % MCV 92.1 (80.0-98.0) fL MCH 32.0 (27.0-32.0) pg MCHC 34.7 (31.0-37.0) g/dL RDW Std Deviation 39.8 (28.0-62.0) fl RDW Coeff of [place] 12 (11.0-15.0) % Plt Count 140 L (150-400) K/uL MPV 13.90 H (7.40-12.00) fL Neut % (Auto) 70.2 (48.0-80.0) % Lymph % (Auto) 20.3 (16.0-40.0) % [place] % (Auto) 7.5 (0.0-15.0) % Eos % (Auto) 1.7 (0.0-7.0) % Baso % (Auto) 0.3 (0.0-1.5) % Neut # (Auto) 6.2 H (1.4-5.7) K/uL Lymph # (Auto) 1.8 (0.6-2.4) K/uL [place] # (Auto) 0.7 (0.0-0.8) K/uL Eos # (Auto) 0.2 (0.0-0.7) K/uL Baso # (Auto) 0.0 (0.0-0.1) K/uL Sodium 135 L (136-145) mmol/L Potassium 3.9 (3.5-5.1) mmol/L Chloride 96 L (98-107) mmol/L Carbon Dioxide 24.5 (21.0-32.0) mmol/L BUN 14 (7.0-18.0) mg/dL Creatinine 0.9 (0.6-1.0) mg/dL Est Cr Clr Drug Dosing 59.68 mL/min Estimated GFR (MDRD) > 60.0 ml/min Glucose 416 H (74-106) mg/dL Calcium 9.5 (8.5-10.1) mg/dL Total Bilirubin 0.5 (0.2-1.0) mg/dL AST 36 (15-37) IU/L ALT 88 H (14-63) IU/L Alkaline Phosphatase 81 (46-116) U/L Total Protein 7.4 (6.4-8.2) g/dL Albumin 3.7 (3.4-5.0) g/dL Globulin 3.7 (2.6-4.0) g/dL Albumin/Globulin Ratio 1.0 (0.9-1.6) Lipase 449 H (73-393) U/L Meds: Medications Generic Name Dose Route Start Last Admin Trade Name Freq PRN Reason Stop Dose Admin Sodium Chloride 10 ml 02/14/21 23:38 Sodium Chloride 0.9% 10 Ml Syringe FLUSH ASDIRECTED PRN Keep Vein Open Sodium Chloride 2.5 ml 02/14/21 23:38 Sodium Chloride 0.9% 2.5 Ml Syringe FLUSH ASDIRECTED PRN Keep Vein Open Discontinued Medications Generic Name Dose Route Start Last Admin Trade Name Freq PRN Reason Stop Dose Admin Fentanyl 100 mcg 02/15/21 00:56 02/15/21 01:10 Fentanyl 50 Mcg/Ml Sdv IVPUSH 02/15/21 00:57 Not Given ONETIME ONE Fentanyl 100 mcg 02/15/21 01:11 02/15/21 01:15 Fentanyl 50 Mcg/Ml Sdv IM 02/15/21 01:12 100 mcg ONETIME ONE Administration Ondansetron HCl 4 mg 02/15/21 00:56 02/15/21 01:15 Ondansetron 4 Mg Tab.Dis PO 02/15/21 00:57 4 mg ONETIME ONE Administration Departure - Departure Time of Disposition: 02:16 Disposition: Home, Self-Care 01 Condition: Good Clinical Impression: Abdominal pain - Discharge Information Instructions: Abdominal Pain, Adult, [id number] Referrals: Kasi Gonzalez MD [Primary Care Provider] - Additional Instructions: Your seen and evaluated in the ER today secondary to your abdominal pain. Your blood tests were all unremarkable. Your liver function tests were just slightly elevated. Please make an appointment see your doctor next week for reevaluation if you have any other concerns. Please return to the ER if you develop any new or concerning symptoms. The following information is given to patients seen in the emergency department who are being discharged to home. This information is to outline your options for follow-up care. We provide all patients seen in our emergency department with a follow-up referral. The need for follow-up, as well as the timing and circumstances, are variable depending upon the specifics of your emergency department visit. If you don't have a primary care physician on staff, we will provide you with a referral. We always advise you to contact your personal physician following an emergency department visit to inform them of the circumstance of the visit and for follow-up with them and/or the need for any referrals to a consulting specialist. The emergency department will also refer you to a specialist when appropriate. This referral assures that you have the opportunity for follow-up care with a specialist. All of these measure are taken in an effort to provide you with optimal care, which includes your follow-up. Under all circumstances we always encourage you to contact your private physician who remains a resource for coordinating your care. When calling for follow-up care, please make the office aware that this follow-up is from your recent emergency room visit. If for any reason you are refused follow-up, please contact the [facility] Emergency Department at and asked to speak to the emergency department charge nurse. [facility] [address] [place] [id number] [address] Sepsis Event Note (ED) - Evaluation Sepsis Screening Result: No Definite Risk - Focused Exam Vital Signs: Vital Signs Temp Pulse Resp BP Pulse Ox 02/15/21 00:47 84 17 131/74 95 02/14/21 21:56 97.4 F 88 18 163/83 H 97 - My Orders Last 24 Hours: My Active Orders 02/14/21 23:38 Sodium Chloride 0.9% [Saline Flush] 10 ml FLUSH ASDIRECTED PRN Sodium Chloride 0.9% [Saline Flush] 2.5 ml FLUSH ASDIRECTED PRN Saline Lock Insert [OM.PC] Stat - Assessment/Plan Last 24 Hours: My Active Orders 02/14/21 23:38 Sodium Chloride 0.9% [Saline Flush] 10 ml FLUSH ASDIRECTED PRN Sodium Chloride 0.9% [Saline Flush] 2.5 ml FLUSH ASDIRECTED PRN Saline Lock Insert [OM.PC] Stat
[2021-02-15 02:40] VITALS: BP 128/77; PULSE 81
== END 2021-02-15 02:40 | disposition home or self-care (01) ==
LOC: MW.ED 21:47
DX: R10.11 Right upper quadrant pain (principal); E78.00 Pure hypercholesterolemia, unspecified; J44.9 Chronic obstructive pulmonary disease, unspecified; K21.9 Gastro-esophageal reflux disease without esophagitis; M19.90 Unspecified osteoarthritis, unspecified site; E11.9 Type 2 diabetes mellitus without complications; E03.9 Hypothyroidism, unspecified; E66.9 Obesity, unspecified; Z72.0 Tobacco use; Z88.0 Allergy status to penicillin; Z79.4 Long term (current) use of insulin; Z79.899 Other long term (current) drug therapy
CPT/HCPCS: 36415; 80053; 83690; 85025; 96372; 99284; A9270; J3010

== ENCOUNTER 2021-07-23 22:02 | Emergency (ER) | payer OTHER ==
[2021-07-23] MEDS ORDERED: Ketorolac 30 MG/ML SDV IM ONE (22:18)
[2021-07-24 00:04] VITALS: BP 134/61; PULSE 74
== END 2021-07-24 00:03 | disposition home or self-care (01) ==
LOC: MW.ED 22:02
DX: S96.911A Strain of unspecified muscle and tendon at ankle and foot level, right foot, initial encounter (principal); J44.9 Chronic obstructive pulmonary disease, unspecified; F41.9 Anxiety disorder, unspecified; F32.A Depression, unspecified; E11.9 Type 2 diabetes mellitus without complications; E03.9 Hypothyroidism, unspecified; E78.00 Pure hypercholesterolemia, unspecified; K21.9 Gastro-esophageal reflux disease without esophagitis; E66.9 Obesity, unspecified; Z68.43 Body mass index [BMI] 50.0-59.9, adult; Z88.8 Allergy status to other drugs, medicaments and biological substances; Z79.4 Long term (current) use of insulin; Z79.899 Other long term (current) drug therapy; W00.0XXA Fall on same level due to ice and snow, initial encounter
CPT/HCPCS: 73610; 73630; 96372; 99283; J1885

== ENCOUNTER 2021-08-09 23:11 | Emergency (ER) | payer OTHER ==
[2021-08-10 00:49] LABS: ACETAMINOPHEN <2.0 ug/mL; BLOOD UREA NITROGEN,BUN 7 mg/dL (7.0-18.0); CARBON DIOXIDE,CO2 23.4 mmol/L (21.0-32.0); CHLORIDE,CL 98 mmol/L (98-107); GLUCOSE RANDOM 131 mg/dL (74-106); POTASSIUM,K 3.6 mmol/L (3.5-5.1); SODIUM,NA 135 mmol/L (136-145)
[2021-08-10 03:39] VITALS: PULSE 104
[2021-08-10 04:06] VITALS: BP 110/59
== END 2021-08-10 05:00 | disposition home or self-care (01) ==
LOC: MW.ED 23:11
DX: F10.129 Alcohol abuse with intoxication, unspecified (principal); R45.851 Suicidal ideations; E78.00 Pure hypercholesterolemia, unspecified; J44.9 Chronic obstructive pulmonary disease, unspecified; K21.9 Gastro-esophageal reflux disease without esophagitis; E11.9 Type 2 diabetes mellitus without complications; E03.9 Hypothyroidism, unspecified; E66.9 Obesity, unspecified; Z79.4 Long term (current) use of insulin; Z68.30 Body mass index [BMI] 30.0-30.9, adult; Z88.0 Allergy status to penicillin; Z88.8 Allergy status to other drugs, medicaments and biological substances; Z79.899 Other long term (current) drug therapy; Z20.822 Contact with and (suspected) exposure to COVID-19; Y90.6 Blood alcohol level of 120-199 mg/100 ml
CPT/HCPCS: 36415; 80053; 80143; 80179; 80305-QW; 80307; 81003; 84703; 85025; 99284; U0002

== ENCOUNTER 2021-11-07 21:38 | Emergency (ER) | payer SELFPAY ==
[2021-11-07] MEDS ORDERED: OLANZapine 5 MG Tab PO ONE (22:00)
[2021-11-07] MEDS ORDERED: Citalopram 20 MG Tab PO ONE (23:04)
[2021-11-07] MEDS ORDERED: Insulin Glargine,Hum.Rec.Anlog 100 UNIT/ML 3 ML Pen SUBCUT STA (23:07)
[2021-11-07] MEDS ORDERED: Gabapentin 800 MG Tab PO STA (23:08)
[2021-11-08 03:52] VITALS: BP 116/66; PULSE 77
== END 2021-11-07 23:44 | disposition home or self-care (01) ==
LOC: MW.ED 21:38
DX: R45.851 Suicidal ideations (principal); F10.129 Alcohol abuse with intoxication, unspecified; E78.00 Pure hypercholesterolemia, unspecified; J44.9 Chronic obstructive pulmonary disease, unspecified; K21.9 Gastro-esophageal reflux disease without esophagitis; E11.9 Type 2 diabetes mellitus without complications; E03.9 Hypothyroidism, unspecified; Z72.0 Tobacco use; Z88.2 Allergy status to sulfonamides; Z88.8 Allergy status to other drugs, medicaments and biological substances
CPT/HCPCS: 99284; A9270; 99285

== ENCOUNTER 2021-12-23 00:24 | Emergency (ER) | payer OTHER ==
[2021-12-23] MEDS ORDERED: Sodium Chloride 0.9% 2.5 ML Syringe FLUSH PRN (01:11)
[2021-12-23] MEDS ORDERED: Sodium Chloride 0.9% 10 ML Syringe FLUSH PRN (01:11)
[2021-12-23 02:27] LABS: CARBON DIOXIDE,CO2 23.9 mmol/L (21.0-32.0); POTASSIUM,K 3.8 mmol/L (3.5-5.1)
[2021-12-23 03:24] VITALS: BP 121/68; PULSE 91
== END 2021-12-23 03:22 | disposition home or self-care (01) ==
LOC: MW.ED 00:24
DX: R06.02 Shortness of breath (principal); J44.9 Chronic obstructive pulmonary disease, unspecified; K21.9 Gastro-esophageal reflux disease without esophagitis; E78.00 Pure hypercholesterolemia, unspecified; Z79.899 Other long term (current) drug therapy; Z88.8 Allergy status to other drugs, medicaments and biological substances; Z20.822 Contact with and (suspected) exposure to COVID-19
CPT/HCPCS: 36415; 71045; 80053; 84484; 85025; 87635; 93005; 99285; J3490; 93010; 99283; U0002

== ENCOUNTER 2023-04-24 20:22 | Emergency (ER) | payer MEDICAID ==
[2023-04-24] MEDS ORDERED: Sodium Chloride 0.9% 2.5 ML Syringe FLUSH PRN (21:22)
[2023-04-24] MEDS ORDERED: Sodium Chloride 0.9% 10 ML Syringe FLUSH PRN (21:22)
[2023-04-24 21:43] LABS: BASOPHILS ABSOLUTE AUTO 0.08 K/uL (0.00-0.20); BASOPHILS PERCENT AUTO 0.7 % (0.0-1.0); EOSINOPHILS ABSOLUTE AUTO 0.16 K/uL (0.00-0.45); EOSINOPHILS PERCENT AUTO 1.3 % (0.0-6.0); HEMATOCRIT 41.4 % (37.0-47.0); HEMOGLOBIN 14.3 g/dL (12.0-16.0); IMMATURE GRAN ABSOLUTE AUTO 0.12 K/uL (0.00-0.05); LYMPHOCYTES ABSOLUTE AUTO 2.91 K/uL (1.00-4.80); LYMPHOCYTES PERCENT AUTO 23.9 % (24.0-44.0); MEAN CORPUSCULAR HEMOGLOBIN 30.8 pg (28.0-32.0); MEAN CORPUSCULAR HGB CONC 34.5 g/dL (32.0-36.0); MEAN PLATELET VOLUME 13.2 fL (9.4-12.3); MONOCYTES ABSOLUTE AUTO 0.95 K/uL (0.00-0.80); MONOCYTES PERCENT AUTO 7.8 % (0.0-8.0); NEUTROPHILS ABSOLUTE AUTO 7.94 K/uL (1.80-7.70); NEUTROPHILS PERCENT AUTO 65.3 % (41.0-71.0); PLATELET COUNT,PLT 168 K/uL (150-400); RED BLOOD CELL COUNT 4.65 M/uL (4.10-5.30); WHITE BLOOD CELL COUNT,WBC 12.16 K/uL (3.9-11.3)
[2023-04-24 21:53] LABS: D-DIMER QUANTITATIVE < 0.19 mg/L FEU (0.00-0.50); INR 0.98 (0.86-1.11); PTT,PARTIAL THROMBOPLSTIN TIME 26.5 SEC (23.9-30.7)
[2023-04-24 21:55] LABS: HEMOGLOBIN A1C 6.4 %
[2023-04-24 22:00] LABS: A/G RATIO 1.1 (0.9-1.6); ALBUMIN 4.1 g/dL (3.4-5.0); BILIRUBIN TOTAL 0.3 mg/dL (0.2-1.0); CALCIUM 9.4 mg/dL (8.5-10.1); CARBON DIOXIDE,CO2 24.1 mmol/L (21.0-32.0); CREATININE 0.8 mg/dL (0.6-1.0); EST CRCL DRUG DOSING (CG) 65.8 mL/min; POTASSIUM,K 3.4 mmol/L (3.5-5.1); PROTEIN TOTAL,TP 7.7 g/dL (6.4-8.2)
[2023-04-24] MEDS ORDERED: LORazepam 2 MG/ML SDV IVPUSH ONE (22:29)
[2023-04-24] MEDS ORDERED: Lidocaine 4% 1 each Patch TOP STA (23:26)
[2023-04-24 23:53] VITALS: BP 123/73; PULSE 99
== END 2023-04-24 23:53 | disposition home or self-care (01) ==
LOC: MW.ED 20:22
DX: M17.12 Unilateral primary osteoarthritis, left knee (principal); M25.511 Pain in right shoulder; R53.1 Weakness; E78.00 Pure hypercholesterolemia, unspecified; J44.9 Chronic obstructive pulmonary disease, unspecified; K21.9 Gastro-esophageal reflux disease without esophagitis; E11.9 Type 2 diabetes mellitus without complications; E03.9 Hypothyroidism, unspecified; E66.9 Obesity, unspecified; Z68.43 Body mass index [BMI] 50.0-59.9, adult; Z79.899 Other long term (current) drug therapy; Z79.4 Long term (current) use of insulin; Z88.0 Allergy status to penicillin
CPT/HCPCS: 36415; 70450; 73030; 73564; 80053; 82947; 83036; 83880; 84484; 85025; 85379; 85610; 85730; 93005; 96374; 99284; A9270; J2060; J3490; 93010

== ENCOUNTER 2023-08-13 14:33 | Emergency (ER) | payer MEDICAID ==
[2023-08-13] MEDS: Benzocaine 20% Topical Spray UD MUCMEM ONE (16:02)
[2023-08-13] MEDS: Ketorolac 60 MG/2 ML SDV IM ONE (16:02)
[2023-08-13] MEDS: Lidocaine 2% Viscous Solution 15 ML UD PO ONE (16:02)
[2023-08-13] MEDS: Clindamycin HCl 150 MG Cap PO ONE (16:02)
[2023-08-13 16:10] VITALS: BP 128/86; PULSE 86
== END 2023-08-13 16:13 | disposition home or self-care (01) ==
LOC: MW.ED 14:33
DX: K04.7 Periapical abscess without sinus (principal); G43.909 Migraine, unspecified, not intractable, without status migrainosus; E78.00 Pure hypercholesterolemia, unspecified; J44.9 Chronic obstructive pulmonary disease, unspecified; E03.9 Hypothyroidism, unspecified; E11.9 Type 2 diabetes mellitus without complications; E66.9 Obesity, unspecified; Z79.84 Long term (current) use of oral hypoglycemic drugs; Z79.4 Long term (current) use of insulin; Z90.49 Acquired absence of other specified parts of digestive tract; Z75.8 Other problems related to medical facilities and other health care; Z88.0 Allergy status to penicillin; Z88.8 Allergy status to other drugs, medicaments and biological substances; Z68.43 Body mass index [BMI] 50.0-59.9, adult; Z79.899 Other long term (current) drug therapy
CPT/HCPCS: 96372; 99282; A9270; J1885; 99283

== ENCOUNTER 2023-09-26 04:44 | Emergency (ER) | payer SELFPAY ==
[2023-09-26] MEDS: Sodium Chloride 0.9% 2.5 ML Syringe FLUSH PRN (05:04)
[2023-09-26] MEDS: Sodium Chloride 0.9% 1,000 ML IV ONE (05:04)
[2023-09-26] MEDS: Ondansetron 4 MG/2 ML SDV IVPUSH ONE (05:04)
[2023-09-26] MEDS: Sodium Chloride 0.9% 10 ML Syringe FLUSH PRN (05:04)
[2023-09-26] MEDS: Famotidine 20 MG/2 ML SDV IVPUSH ONE (05:04)
[2023-09-26] MEDS: fentaNYL 50 MCG/ML SDV IV ONE (05:04)
[2023-09-26 05:10] LABS: HEMATOCRIT 39.9 % (37.0-47.0); HEMOGLOBIN 13.5 g/dL (12.0-16.0); MEAN CORPUSCULAR HEMOGLOBIN 29.6 pg (28.0-32.0); MEAN CORPUSCULAR HGB CONC 33.8 g/dL (32.0-36.0); MEAN CORPUSCULAR VOLUME 87.5 fL (83.0-99.0); MEAN PLATELET VOLUME 12.7 fL (9.4-12.3); PLATELET COUNT,PLT 147 K/uL (150-400); RED BLOOD CELL COUNT 4.56 M/uL (4.10-5.30); WHITE BLOOD CELL COUNT,WBC 11.16 K/uL (3.9-11.3)
[2023-09-26 05:36] LABS: ALBUMIN 3.3 g/dL (3.4-5.0); BILIRUBIN TOTAL 0.5 mg/dL (0.2-1.0); CALCIUM 8.8 mg/dL (8.5-10.1); CARBON DIOXIDE,CO2 26.3 mmol/L (21.0-32.0); CREATININE 1.1 mg/dL (0.6-1.0); EST CRCL DRUG DOSING (CG) 47.86 mL/min; POTASSIUM,K 3.7 mmol/L (3.5-5.1); PROTEIN TOTAL,TP 7.2 g/dL (6.4-8.2)
[2023-09-26 05:37] LABS: A/G RATIO 0.9 (0.9-1.6)
[2023-09-26 05:49] LABS: BAND ABSOLUTE MAN 0.11; BAND PERCENT MAN 1 %; EOSINOPHILS ABSOLUTE MAN 0.22 K/uL (0.00-0.45); EOSINOPHILS PERCENT MAN 2 % (0-6); LYMPHOCYTES ABSOLUTE MAN 1.34 K/uL (1.00-4.80); LYMPHOCYTES PERCENT MAN 12 % (24-44); MONOCYTES ABSOLUTE MAN 0.78 K/uL (0.00-0.80); MONOCYTES PERCENT MAN 7 % (0-8); SEG NEUTROPHILS PERCENT MAN 78 % (41-71)
[2023-09-26 06:00] LABS: BILIRUBIN,URINE NEGATIVE (NEGATIVE); COLOR,URINE YELLOW; GLUCOSE,URINE >=1000 mg/dL (NEGATIVE); KETONES,URINE NEGATIVE (NEGATIVE); LEUKOCYTE ESTERASE,URINE SMALL (NEGATIVE); NITRITE,URINE NEGATIVE (NEGATIVE); OCCULT BLOOD,URINE MODERATE (NEGATIVE); PROTEIN,URINE NEGATIVE (NEGATIVE); UROBILINOGEN,URINE 0.2 EU/dL (<2.0)
[2023-09-26 06:07] LABS: APPEARANCE,URINE SLT CLOUDY
[2023-09-26 06:08] LABS: BACTERIA,URINE 1+ (NEGATIVE); EPITHELIAL CELLS,URINE MODERATE (NONE-FEW); RBC,URINE 0-2 (0-2/HPF); WBC,URINE 25-30 (0-5/HPF)
[2023-09-26] MEDS: Ciprofloxacin 500 MG Tab PO ONE (06:15)
[2023-09-26 06:17] VITALS: BP 109/53; PULSE 80
== END 2023-09-26 06:21 | disposition home or self-care (01) ==
LOC: MW.ED 04:44
DX: N39.0 Urinary tract infection, site not specified (principal); R19.7 Diarrhea, unspecified; J44.9 Chronic obstructive pulmonary disease, unspecified; E78.00 Pure hypercholesterolemia, unspecified; E11.9 Type 2 diabetes mellitus without complications; E03.9 Hypothyroidism, unspecified; E66.9 Obesity, unspecified; Z79.899 Other long term (current) drug therapy; Z79.84 Long term (current) use of oral hypoglycemic drugs; Z88.1 Allergy status to other antibiotic agents; Z68.43 Body mass index [BMI] 50.0-59.9, adult; Z75.8 Other problems related to medical facilities and other health care
CPT/HCPCS: 36415; 80053; 81001; 83690; 84703; 85025; 96361; 96374; 96375; 99284; A9270; J2405; J3010; J3490; J7030

== ENCOUNTER 2023-10-09 19:32 | Emergency (ER) | payer SELFPAY ==
[2023-10-09] MEDS: Sodium Chloride 0.9% 2.5 ML Syringe FLUSH PRN (19:42)
[2023-10-09] MEDS: Sodium Chloride 0.9% 10 ML Syringe FLUSH PRN (19:42)
[2023-10-09] MEDS: Sodium Chloride 0.9% 1,000 ML IV ONE ×2 (19:42→22:12)
[2023-10-09 19:55] LABS: BASOPHILS ABSOLUTE AUTO 0.06 K/uL (0.00-0.20); BASOPHILS PERCENT AUTO 0.6 % (0.0-1.0); EOSINOPHILS ABSOLUTE AUTO 0.19 K/uL (0.00-0.45); EOSINOPHILS PERCENT AUTO 1.8 % (0.0-6.0); HEMATOCRIT 42.6 % (37.0-47.0); HEMOGLOBIN 14.3 g/dL (12.0-16.0); IMMATURE GRAN ABSOLUTE AUTO 0.07 K/uL (0.00-0.05); IMMATURE GRAN PERCENT AUTO 0.7 % (0.0-0.4); LYMPHOCYTES ABSOLUTE AUTO 2.36 K/uL (1.00-4.80); LYMPHOCYTES PERCENT AUTO 22.5 % (24.0-44.0); MEAN CORPUSCULAR HEMOGLOBIN 29.9 pg (28.0-32.0); MEAN CORPUSCULAR HGB CONC 33.6 g/dL (32.0-36.0); MEAN CORPUSCULAR VOLUME 88.9 fL (83.0-99.0); MEAN PLATELET VOLUME 12.2 fL (9.4-12.3); MONOCYTES ABSOLUTE AUTO 0.55 K/uL (0.00-0.80); MONOCYTES PERCENT AUTO 5.2 % (0.0-8.0); NEUTROPHILS ABSOLUTE AUTO 7.25 K/uL (1.80-7.70); NEUTROPHILS PERCENT AUTO 69.2 % (41.0-71.0); PLATELET COUNT,PLT 167 K/uL (150-400); RED BLOOD CELL COUNT 4.79 M/uL (4.10-5.30); WHITE BLOOD CELL COUNT,WBC 10.48 K/uL (3.9-11.3)
[2023-10-09 19:56] LABS: APPEARANCE,URINE CLEAR; BILIRUBIN,URINE NEGATIVE (NEGATIVE); COLOR,URINE YELLOW; GLUCOSE,URINE 500 mg/dL (NEGATIVE); KETONES,URINE NEGATIVE (NEGATIVE); LEUKOCYTE ESTERASE,URINE NEGATIVE (NEGATIVE); NITRITE,URINE NEGATIVE (NEGATIVE); OCCULT BLOOD,URINE NEGATIVE (NEGATIVE); PH,URINE 5.5 (5.0-8.0); PROTEIN,URINE NEGATIVE (NEGATIVE); UROBILINOGEN,URINE 0.2 EU/dL (<2.0)
[2023-10-09 20:01] LABS: EPITHELIAL CELLS,URINE MODERATE (NONE-FEW); OTHER CRYSTALS,URINE RARE; RBC,URINE 0-1 (0-2/HPF); WBC,URINE 0-2 (0-5/HPF)
[2023-10-09 20:06] LABS: AMPHETAMINES SCREEN, URINE NEGATIVE (CUTOFF=500); BARBITURATE SCREEN,URINE NEGATIVE (CUTOFF=200); BENZODIAZEPINES SCREEN,URINE NEGATIVE (CUTOFF=150); BUPRENORPHINE SCREEN,URINE NEGATIVE (CUTOFF=10); METHADONE SCREEN, URINE NEGATIVE (CUTOFF=200); METHAMPHETAMINES SCREEN, URINE NEGATIVE (CUTOFF=500); OXYCODONE SCREEN,URINE NEGATIVE (CUT0FF=100); PCP SCREEN,URINE NEGATIVE (CUTOFF=25); THC SCREEN,URINE 20 NG/ML NEGATIVE (CUTOFF=50)
[2023-10-09 20:25] LABS: ACETAMINOPHEN <2.0 ug/mL; ALANINE AMINOTRANSFERASE,ALT 37 IU/L (14-63); ALKALINE PHOSPHATASE 59 U/L (46-116); ASPARTATE AMNIOTRANSFERASE,AST 20 IU/L (15-37); BILIRUBIN TOTAL 0.2 mg/dL (0.2-1.0); BLOOD UREA NITROGEN,BUN 15 mg/dL (7.0-18.0); CALCIUM 9.3 mg/dL (8.5-10.1); CARBON DIOXIDE,CO2 22.1 mmol/L (21.0-32.0); CHLORIDE,CL 99 mmol/L (98-107); ETHANOL BLOOD MEDICAL 205 mg/dL; GLUCOSE RANDOM 102 mg/dL (74-106); MAGNESIUM 1.7 mg/dL (1.8-2.4); POTASSIUM,K 3.7 mmol/L (3.5-5.1); PROTEIN TOTAL,TP 7.9 g/dL (6.4-8.2); SALICYLATE 4.6 mg/dL (0.0-20.0); SODIUM,NA 136 mmol/L (136-145); TSH ULTRASENSITIVE 2.19 uIU/mL (0.36-3.74)
[2023-10-09 20:28] LABS: ESTIMATED GFR 72 mL/min (>60)
[2023-10-10 09:03] VITALS: BP 94/52; PULSE 80
== END 2023-10-10 13:01 ==
LOC: MW.ED 19:32
DX: T46.4X2A Poisoning by angiotensin-converting-enzyme inhibitors, intentional self-harm, initial encounter (principal); F10.129 Alcohol abuse with intoxication, unspecified; J44.9 Chronic obstructive pulmonary disease, unspecified; E78.00 Pure hypercholesterolemia, unspecified; E11.9 Type 2 diabetes mellitus without complications; E03.9 Hypothyroidism, unspecified; E66.9 Obesity, unspecified; Z79.4 Long term (current) use of insulin; Z79.84 Long term (current) use of oral hypoglycemic drugs; Z79.899 Other long term (current) drug therapy; Z88.8 Allergy status to other drugs, medicaments and biological substances; Z91.018 Allergy to other foods; Z68.43 Body mass index [BMI] 50.0-59.9, adult; Z75.8 Other problems related to medical facilities and other health care
CPT/HCPCS: 36415; 80053; 80143; 80179; 80305; 80307; 81001; 81025; 83735; 84443; 85025; 93005; 96360; 96361; 99285; J3490; J7030; 93010

== ENCOUNTER 2023-12-06 01:21 | Emergency (ER) | payer SELFPAY ==
[2023-12-06 01:52] VITALS: BP 157/79
[2023-12-06] MEDS: Sodium Chloride 0.9% 2.5 ML Syringe FLUSH PRN (03:09)
[2023-12-06] MEDS: Sodium Chloride 0.9% 10 ML Syringe FLUSH PRN (03:09)
[2023-12-06] MEDS: Albuterol/Ipratropium 3.0-0.5 MG/3 ML Neb Soln NEB ONE (03:09)
[2023-12-06 03:21] LABS: BASOPHILS ABSOLUTE AUTO 0.05 K/uL (0.00-0.20); BASOPHILS PERCENT AUTO 0.7 % (0.0-1.0); EOSINOPHILS ABSOLUTE AUTO 0.18 K/uL (0.00-0.45); EOSINOPHILS PERCENT AUTO 2.6 % (0.0-6.0); HEMATOCRIT 38.1 % (37.0-47.0); HEMOGLOBIN 12.9 g/dL (12.0-16.0); IMMATURE GRAN ABSOLUTE AUTO 0.05 K/uL (0.00-0.05); IMMATURE GRAN PERCENT AUTO 0.7 % (0.0-0.4); LYMPHOCYTES ABSOLUTE AUTO 1.41 K/uL (1.00-4.80); LYMPHOCYTES PERCENT AUTO 20.1 % (24.0-44.0); MEAN CORPUSCULAR HGB CONC 33.9 g/dL (32.0-36.0); MEAN CORPUSCULAR VOLUME 94.5 fL (83.0-99.0); MEAN PLATELET VOLUME 12.4 fL (9.4-12.3); MONOCYTES ABSOLUTE AUTO 0.53 K/uL (0.00-0.80); MONOCYTES PERCENT AUTO 7.6 % (0.0-8.0); NEUTROPHILS ABSOLUTE AUTO 4.79 K/uL (1.80-7.70); NEUTROPHILS PERCENT AUTO 68.3 % (41.0-71.0); PLATELET COUNT,PLT 142 K/uL (150-400); RED BLOOD CELL COUNT 4.03 M/uL (4.10-5.30); WHITE BLOOD CELL COUNT,WBC 7.01 K/uL (3.9-11.3)
[2023-12-06 03:50] LABS: ALBUMIN 3.8 g/dL (3.4-5.0); BILIRUBIN TOTAL 0.4 mg/dL (0.2-1.0); CALCIUM 9.3 mg/dL (8.5-10.1); CREATININE 1.1 mg/dL (0.6-1.0); EST CRCL DRUG DOSING (CG) 47.86 mL/min; POTASSIUM,K 4.2 mmol/L (3.5-5.1); PROTEIN TOTAL,TP 7.5 g/dL (6.4-8.2)
[2023-12-06] MEDS: oxyCODONE 5 MG Tab PO ONE (04:36)
[2023-12-06] MEDS: Amoxicillin/Clavulanate K 875-125 MG Tab PO ONE (04:37)
[2023-12-06 04:55] VITALS: PULSE 78
== END 2023-12-06 04:43 | disposition home or self-care (01) ==
LOC: MW.ED 01:21
DX: S61.451A Open bite of right hand, initial encounter (principal); J44.9 Chronic obstructive pulmonary disease, unspecified; J45.909 Unspecified asthma, uncomplicated; E11.9 Type 2 diabetes mellitus without complications; E78.00 Pure hypercholesterolemia, unspecified; E03.9 Hypothyroidism, unspecified; E66.9 Obesity, unspecified; Z90.49 Acquired absence of other specified parts of digestive tract; Z79.899 Other long term (current) drug therapy; Z88.8 Allergy status to other drugs, medicaments and biological substances; Z79.2 Long term (current) use of antibiotics; W55.01XA Bitten by cat, initial encounter
CPT/HCPCS: 36415; 71045; 73130; 80053; 84484; 85025; 93005; 99285; A9270; J3490; 93010; 99283; J7620-GY

== ENCOUNTER 2023-12-06 21:21 | Inpatient (IN) | payer OTHER ==
[2023-12-06] MEDS: Sodium Chloride 0.9% 10 ML Syringe FLUSH PRN (23:49)
[2023-12-06] MEDS: Sodium Chloride 0.9% 2.5 ML Syringe FLUSH PRN (23:49)
[2023-12-06 23:56] LABS: BASOPHILS ABSOLUTE AUTO 0.06 K/uL (0.00-0.20); BASOPHILS PERCENT AUTO 0.7 % (0.0-1.0); EOSINOPHILS PERCENT AUTO 2.2 % (0.0-6.0); HEMATOCRIT 39.2 % (37.0-47.0); IMMATURE GRAN ABSOLUTE AUTO 0.05 K/uL (0.00-0.05); IMMATURE GRAN PERCENT AUTO 0.5 % (0.0-0.4); LYMPHOCYTES ABSOLUTE AUTO 1.38 K/uL (1.00-4.80); MEAN CORPUSCULAR HEMOGLOBIN 31.4 pg (28.0-32.0); MEAN CORPUSCULAR HGB CONC 33.2 g/dL (32.0-36.0); MEAN CORPUSCULAR VOLUME 94.7 fL (83.0-99.0); MEAN PLATELET VOLUME 12.7 fL (9.4-12.3); MONOCYTES ABSOLUTE AUTO 0.69 K/uL (0.00-0.80); MONOCYTES PERCENT AUTO 7.5 % (0.0-8.0); NEUTROPHILS ABSOLUTE AUTO 6.79 K/uL (1.80-7.70); NEUTROPHILS PERCENT AUTO 74.1 % (41.0-71.0); RED BLOOD CELL COUNT 4.14 M/uL (4.10-5.30); WHITE BLOOD CELL COUNT,WBC 9.17 K/uL (3.9-11.3)
[2023-12-07 00:05] LABS: PLATELET COUNT,PLT 155 K/uL (150-400)
[2023-12-07 00:15] LABS: ALBUMIN 3.9 g/dL (3.4-5.0); BILIRUBIN TOTAL 0.6 mg/dL (0.2-1.0); C-REACTIVE PROTEIN 0.95 mg/dL (<0.3); CALCIUM 9.2 mg/dL (8.5-10.1); CARBON DIOXIDE,CO2 20.9 mmol/L (21.0-32.0); CREATININE 1.3 mg/dL (0.6-1.0); EST CRCL DRUG DOSING (CG) 40.49 mL/min; POTASSIUM,K 4.9 mmol/L (3.5-5.1); PROTEIN TOTAL,TP 7.7 g/dL (6.4-8.2)
[2023-12-07] MEDS: cefTRIAXone 2 GM in Sodium Chloride 0.9% 50 ML IV STA (01:10)
[2023-12-07] MEDS: Doxycycline 100 MG in Sodium Chloride 0.9% 100 ML IV STA (01:22)
[2023-12-07] MEDS ORDERED: 50% Dextrose in Water 50 ML Syringe IVPUSH PRN (02:16)
[2023-12-07] MEDS ORDERED: Glucagon,Human Recombinant 1 MG Vial IM PRN (02:16)
[2023-12-07] MEDS ORDERED: Acetaminophen 325 MG Tab PO PRN (02:17)
[2023-12-07] MEDS ORDERED: Naloxone 0.4 MG/ML SDV IVPUSH PRN (02:18)
[2023-12-07] MEDS ORDERED: Ondansetron 4 MG/2 ML SDV IVPUSH PRN (02:19)
[2023-12-07] MEDS: Morphine 2 MG/ML SYRINGE IVPUSH PRN (02:36)
[2023-12-07] MEDS: Citalopram 20 MG Tab PO SCH (03:47)
[2023-12-07] MEDS: atorvaSTATin 10 MG Tab PO SCH (03:47)
[2023-12-07] MEDS: Gabapentin 300 MG Cap PO SCH (03:48)
[2023-12-07 05:50] LABS: HEMATOCRIT 36.8 % (37.0-47.0); HEMOGLOBIN 12.2 g/dL (12.0-16.0); MEAN CORPUSCULAR HEMOGLOBIN 31.5 pg (28.0-32.0); MEAN CORPUSCULAR HGB CONC 33.2 g/dL (32.0-36.0); MEAN CORPUSCULAR VOLUME 95.1 fL (83.0-99.0); MEAN PLATELET VOLUME 12.7 fL (9.4-12.3); PLATELET COUNT,PLT 141 K/uL (150-400); RED BLOOD CELL COUNT 3.87 M/uL (4.10-5.30); WHITE BLOOD CELL COUNT,WBC 6.99 K/uL (3.9-11.3)
[2023-12-07 06:10] LABS: BASOPHILS ABSOLUTE MAN 0.07 K/uL (0.00-0.20); BASOPHILS PERCENT MAN 1 % (0-1); EOSINOPHILS ABSOLUTE MAN 0.07 K/uL (0.00-0.45); EOSINOPHILS PERCENT MAN 1 % (0-6); LYMPHOCYTES ABSOLUTE MAN 1.82 K/uL (1.00-4.80); LYMPHOCYTES PERCENT MAN 26 % (24-44); MONOCYTES ABSOLUTE MAN 0.28 K/uL (0.00-0.80); MONOCYTES PERCENT MAN 4 % (0-8); SEG NEUTROPHILS ABSOLUTE MAN 4.75 K/uL (1.80-7.70); SEG NEUTROPHILS PERCENT MAN 68 % (41-71)
[2023-12-07 06:24] LABS: CALCIUM 9.1 mg/dL (8.5-10.1); CARBON DIOXIDE,CO2 25.8 mmol/L (21.0-32.0); EST CRCL DRUG DOSING (CG) 52.64 mL/min; POTASSIUM,K 3.9 mmol/L (3.5-5.1)
[2023-12-07] MEDS: Insulin Aspart 100 Units/ML 3 ML Pen SUBCUT SCH (07:36)
[2023-12-07] MEDS ORDERED: Docusate Sodium 100 MG Cap PO PRN (08:03)
[2023-12-07] MEDS ORDERED: Sodium Chloride 0.9% 10 ML Syringe FLUSH PRN (08:03)
[2023-12-07] MEDS ORDERED: Sodium Chloride 0.9% 2.5 ML Syringe FLUSH PRN (08:03)
[2023-12-07] MEDS: metroNIDAZOLE/Normal Saline 500 MG in Premix Bag 1 BAG IV SCH (08:54)
[2023-12-07] MEDS: Iopamidol 755 MG/ML 500 ML Multipack Bottle IVPUSH STA (09:17)
[2023-12-07] MEDS ORDERED: ADVAIR 250/50 INH SCH (10:00)
[2023-12-07] MEDS: Celecoxib 100 MG Cap PO SCH (10:06)
[2023-12-07] MEDS: Nicotine 14 MG/24 Hr Patch TRDERM SCH (10:07)
[2023-12-07] MEDS: Febuxostat [Febuxostat] 40 MG Tablet PO SCH (10:07)
[2023-12-07] MEDS: Allopurinol 100 MG Tab PO SCH (10:33)
[2023-12-07] MEDS: Empagliflozin 25 MG Tab PO SCH (10:41)
[2023-12-07] MEDS: oxyCODONE 5 MG Tab PO PRN (12:16)
[2023-12-07] MEDS ORDERED: Doxycycline 100 MG in Sodium Chloride 0.9% 100 ML IV SCH (14:00)
[2023-12-07] MEDS ORDERED: atorvaSTATin 10 MG Tab PO SCH (21:00)
[2023-12-07] MEDS ORDERED: Citalopram 20 MG Tab PO SCH (21:00)
[2023-12-07] MEDS: cefTRIAXone 2 GM in Sodium Chloride 0.9% 50 ML IV SCH (21:24)
[2023-12-07] MEDS: Potassium Chloride 10 MEQ Tab.ER PO SCH (21:26)
[2023-12-07] MEDS: Pantoprazole 40 MG Tab.CR PO SCH (21:26)
[2023-12-07] MEDS: Formoterol/Mometasone 200-5 MCG 8.8 GM Inhaler INH SCH (21:27)
[2023-12-08 06:00] LABS: BASOPHILS ABSOLUTE AUTO 0.03 K/uL (0.00-0.20); BASOPHILS PERCENT AUTO 0.6 % (0.0-1.0); EOSINOPHILS ABSOLUTE AUTO 0.15 K/uL (0.00-0.45); EOSINOPHILS PERCENT AUTO 2.9 % (0.0-6.0); HEMATOCRIT 36.2 % (37.0-47.0); IMMATURE GRAN ABSOLUTE AUTO 0.03 K/uL (0.00-0.05); IMMATURE GRAN PERCENT AUTO 0.6 % (0.0-0.4); LYMPHOCYTES PERCENT AUTO 21.4 % (24.0-44.0); MEAN CORPUSCULAR HGB CONC 33.1 g/dL (32.0-36.0); MEAN CORPUSCULAR VOLUME 93.5 fL (83.0-99.0); MEAN PLATELET VOLUME 12.1 fL (9.4-12.3); MONOCYTES PERCENT AUTO 9.7 % (0.0-8.0); NEUTROPHILS ABSOLUTE AUTO 3.34 K/uL (1.80-7.70); NEUTROPHILS PERCENT AUTO 64.8 % (41.0-71.0); PLATELET COUNT,PLT 151 K/uL (150-400); RED BLOOD CELL COUNT 3.87 M/uL (4.10-5.30); WHITE BLOOD CELL COUNT,WBC 5.15 K/uL (3.9-11.3)
[2023-12-08] MEDS: Levothyroxine 100 MCG Tab PO SCH (06:14)
[2023-12-08 06:24] LABS: CALCIUM 9.1 mg/dL (8.5-10.1); CARBON DIOXIDE,CO2 25.7 mmol/L (21.0-32.0); EST CRCL DRUG DOSING (CG) 52.64 mL/min; POTASSIUM,K 4.4 mmol/L (3.5-5.1)
[2023-12-08] MEDS: Nicotine 21 MG/24 Hr Patch TRDERM SCH (08:05)
[2023-12-08] MEDS ORDERED: Methylergonovine 0.2 MG/1 ML Amp ONE (09:53)
[2023-12-08] MEDS ORDERED: Calcium Chloride 10% 1 GM/10 ML Syringe ONE (09:53)
[2023-12-09] MEDS ORDERED: Magnesium Sulfate/Water 100 ML IV ONE (08:40)
[2023-12-09 16:13] LABS: CARBON DIOXIDE,CO2 26.8 mmol/L (21.0-32.0); CREATININE 1.1 mg/dL (0.6-1.0); POTASSIUM,K 4.2 mmol/L (3.5-5.1)
[2023-12-09 16:14] LABS: CALCIUM 8.8 mg/dL (8.5-10.1); EST CRCL DRUG DOSING (CG) 47.86 mL/min; MAGNESIUM 1.5 mg/dL (1.8-2.4)
[2023-12-09 18:01] LABS: BASOPHILS ABSOLUTE AUTO 0.05 K/uL (0.00-0.20); BASOPHILS PERCENT AUTO 0.9 % (0.0-1.0); EOSINOPHILS ABSOLUTE AUTO 0.17 K/uL (0.00-0.45); EOSINOPHILS PERCENT AUTO 3.1 % (0.0-6.0); HEMATOCRIT 35.7 % (37.0-47.0); HEMOGLOBIN 11.8 g/dL (12.0-16.0); IMMATURE GRAN ABSOLUTE AUTO 0.03 K/uL (0.00-0.05); IMMATURE GRAN PERCENT AUTO 0.6 % (0.0-0.4); LYMPHOCYTES ABSOLUTE AUTO 1.08 K/uL (1.00-4.80); LYMPHOCYTES PERCENT AUTO 19.9 % (24.0-44.0); MEAN CORPUSCULAR HEMOGLOBIN 31.3 pg (28.0-32.0); MEAN CORPUSCULAR HGB CONC 33.1 g/dL (32.0-36.0); MEAN CORPUSCULAR VOLUME 94.7 fL (83.0-99.0); MEAN PLATELET VOLUME 12.4 fL (9.4-12.3); MONOCYTES ABSOLUTE AUTO 0.44 K/uL (0.00-0.80); MONOCYTES PERCENT AUTO 8.1 % (0.0-8.0); NEUTROPHILS ABSOLUTE AUTO 3.66 K/uL (1.80-7.70); NEUTROPHILS PERCENT AUTO 67.4 % (41.0-71.0); PLATELET COUNT,PLT 144 K/uL (150-400); RED BLOOD CELL COUNT 3.77 M/uL (4.10-5.30); WHITE BLOOD CELL COUNT,WBC 5.43 K/uL (3.9-11.3)
[2023-12-09] MEDS: Magnesium Sulfate/Water 100 ML ONE (22:21)
[2023-12-10 06:09] LABS: BASOPHILS ABSOLUTE AUTO 0.04 K/uL (0.00-0.20); BASOPHILS PERCENT AUTO 0.6 % (0.0-1.0); EOSINOPHILS ABSOLUTE AUTO 0.18 K/uL (0.00-0.45); EOSINOPHILS PERCENT AUTO 2.7 % (0.0-6.0); HEMATOCRIT 34.3 % (37.0-47.0); HEMOGLOBIN 11.6 g/dL (12.0-16.0); IMMATURE GRAN ABSOLUTE AUTO 0.04 K/uL (0.00-0.05); IMMATURE GRAN PERCENT AUTO 0.6 % (0.0-0.4); LYMPHOCYTES ABSOLUTE AUTO 1.15 K/uL (1.00-4.80); LYMPHOCYTES PERCENT AUTO 17.5 % (24.0-44.0); MEAN CORPUSCULAR HEMOGLOBIN 31.5 pg (28.0-32.0); MEAN CORPUSCULAR HGB CONC 33.8 g/dL (32.0-36.0); MEAN CORPUSCULAR VOLUME 93.2 fL (83.0-99.0); MEAN PLATELET VOLUME 11.7 fL (9.4-12.3); MONOCYTES ABSOLUTE AUTO 0.41 K/uL (0.00-0.80); MONOCYTES PERCENT AUTO 6.2 % (0.0-8.0); NEUTROPHILS ABSOLUTE AUTO 4.77 K/uL (1.80-7.70); NEUTROPHILS PERCENT AUTO 72.4 % (41.0-71.0); PLATELET COUNT,PLT 153 K/uL (150-400); RED BLOOD CELL COUNT 3.68 M/uL (4.10-5.30); WHITE BLOOD CELL COUNT,WBC 6.59 K/uL (3.9-11.3)
[2023-12-10 06:37] LABS: CALCIUM 9.2 mg/dL (8.5-10.1); CREATININE 0.9 mg/dL (0.6-1.0); EST CRCL DRUG DOSING (CG) 58.49 mL/min; MAGNESIUM 2.1 mg/dL (1.8-2.4); POTASSIUM,K 4.3 mmol/L (3.5-5.1)
[2023-12-11 05:45] LABS: HEMATOCRIT 35.7 % (37.0-47.0); HEMOGLOBIN 11.7 g/dL (12.0-16.0); MEAN CORPUSCULAR HEMOGLOBIN 31.2 pg (28.0-32.0); MEAN CORPUSCULAR HGB CONC 32.8 g/dL (32.0-36.0); MEAN CORPUSCULAR VOLUME 95.2 fL (83.0-99.0); MEAN PLATELET VOLUME 12.3 fL (9.4-12.3); PLATELET COUNT,PLT 155 K/uL (150-400); RED BLOOD CELL COUNT 3.75 M/uL (4.10-5.30); WHITE BLOOD CELL COUNT,WBC 6.03 K/uL (3.9-11.3)
[2023-12-11 06:02] LABS: CALCIUM 8.8 mg/dL (8.5-10.1); CARBON DIOXIDE,CO2 26.9 mmol/L (21.0-32.0); CREATININE 1.1 mg/dL (0.6-1.0); EST CRCL DRUG DOSING (CG) 47.86 mL/min; POTASSIUM,K 4.3 mmol/L (3.5-5.1)
[2023-12-11] MEDS: Albuterol/Ipratropium 3.0-0.5 MG/3 ML Neb Soln NEB PRN (10:15)
[2023-12-11 14:06] VITALS: BP 115/70; PULSE 86
== END 2023-12-11 14:00 | disposition home or self-care (01) | DRG 603 ==
LOC: MW.ED 21:21 → MW.MS 12-07 00:59 → OBSVTOIN 12-07 08:58 → MW.MS 12-07 12:38
PROVIDERS: ADMIT Family Medicine; ATTEND Family Medicine
DX: L03.113 Cellulitis of right upper limb (principal); Z68.43 Body mass index [BMI] 50.0-59.9, adult; S61.451A Open bite of right hand, initial encounter; I10 Essential (primary) hypertension; E78.00 Pure hypercholesterolemia, unspecified; J44.9 Chronic obstructive pulmonary disease, unspecified; M10.9 Gout, unspecified; E66.01 Morbid (severe) obesity due to excess calories; F41.9 Anxiety disorder, unspecified; F32.A Depression, unspecified; E03.9 Hypothyroidism, unspecified; E11.9 Type 2 diabetes mellitus without complications; J45.20 Mild intermittent asthma, uncomplicated; Z88.1 Allergy status to other antibiotic agents; Z79.4 Long term (current) use of insulin; Z90.49 Acquired absence of other specified parts of digestive tract; Z90.89 Acquired absence of other organs; Z98.890 Other specified postprocedural states; Z79.84 Long term (current) use of oral hypoglycemic drugs; Z79.890 Hormone replacement therapy; Z79.899 Other long term (current) drug therapy; W55.01XA Bitten by cat, initial encounter
CPT/HCPCS: 36415; 73201-26-RT; 73201-RT; 80048; 80053; 82947; 83735; 85007; 85025; 85027; 86140; 94640; 96365; 96374; 96375; 96376; 99284-25; A9270-GY; G0378; J0696; J1815-GY; J1836; J2210; J2270; J3475; J3490; J7620-GY; Q9967

== ENCOUNTER 2023-12-16 03:33 | Emergency (ER) | payer OTHER ==
[2023-12-16] MEDS: Acetaminophen/HYDROcodone 325-5 MG Tab PO ONE (04:03)
[2023-12-16 04:05] VITALS: BP 127/61; PULSE 89
== END 2023-12-16 04:11 | disposition home or self-care (01) ==
LOC: MW.ED 03:33
DX: L03.113 Cellulitis of right upper limb (principal); E78.00 Pure hypercholesterolemia, unspecified; E11.9 Type 2 diabetes mellitus without complications; E03.9 Hypothyroidism, unspecified; E66.9 Obesity, unspecified; Z90.49 Acquired absence of other specified parts of digestive tract; Z79.899 Other long term (current) drug therapy; Z88.1 Allergy status to other antibiotic agents; Z79.4 Long term (current) use of insulin
CPT/HCPCS: 99283; A9270

== ENCOUNTER 2024-05-19 13:57 | Emergency (ER) | payer OTHER ==
[2024-05-19] MEDS: Benzonatate 100 MG Cap PO ONE (15:39)
[2024-05-19] MEDS: methylPREDNISolone Sodium Succinate 125 MG/2 ML SDV IVPUSH ONE (15:40)
[2024-05-19] MEDS: Sodium Chloride 0.9% 1,000 ML IV ONE (15:40)
[2024-05-19 15:45] LABS: BASOPHILS ABSOLUTE AUTO 0.01 K/uL (0.00-0.20); BASOPHILS PERCENT AUTO 0.3 % (0.0-1.0); EOSINOPHILS ABSOLUTE AUTO 0.22 K/uL (0.00-0.45); EOSINOPHILS PERCENT AUTO 6.3 % (0.0-6.0); HEMATOCRIT 39.7 % (37.0-47.0); HEMOGLOBIN 13.2 g/dL (12.0-16.0); IMMATURE GRAN ABSOLUTE AUTO 0.02 K/uL (0.00-0.05); IMMATURE GRAN PERCENT AUTO 0.6 % (0.0-0.4); LYMPHOCYTES ABSOLUTE AUTO 1.15 K/uL (1.00-4.80); LYMPHOCYTES PERCENT AUTO 33.1 % (24.0-44.0); MEAN CORPUSCULAR HEMOGLOBIN 28.8 pg (28.0-32.0); MEAN CORPUSCULAR HGB CONC 33.2 g/dL (32.0-36.0); MEAN CORPUSCULAR VOLUME 86.5 fL (83.0-99.0); MEAN PLATELET VOLUME 12.9 fL (9.4-12.3); MONOCYTES ABSOLUTE AUTO 0.37 K/uL (0.00-0.80); MONOCYTES PERCENT AUTO 10.7 % (0.0-8.0); PLATELET COUNT,PLT 116 K/uL (150-400); RED BLOOD CELL COUNT 4.59 M/uL (4.10-5.30); WHITE BLOOD CELL COUNT,WBC 3.47 K/uL (3.9-11.3)
[2024-05-19 16:05] LABS: A/G RATIO 0.9 (0.9-1.6); ALBUMIN 3.4 g/dL (3.4-5.0); BILIRUBIN TOTAL 0.4 mg/dL (0.2-1.0); CALCIUM 8.9 mg/dL (8.5-10.1); CARBON DIOXIDE,CO2 26.2 mmol/L (21.0-32.0); EST CRCL DRUG DOSING (CG) 52.1 mL/min; POTASSIUM,K 4.2 mmol/L (3.5-5.1); PROTEIN TOTAL,TP 7.4 g/dL (6.4-8.2)
[2024-05-19 16:52] VITALS: BP 124/76; PULSE 73
== END 2024-05-19 16:51 | disposition home or self-care (01) ==
LOC: MW.ED 13:57
DX: R05.9 Cough, unspecified (principal); J44.9 Chronic obstructive pulmonary disease, unspecified; E78.00 Pure hypercholesterolemia, unspecified; E11.9 Type 2 diabetes mellitus without complications; E03.9 Hypothyroidism, unspecified; E66.9 Obesity, unspecified; Z79.84 Long term (current) use of oral hypoglycemic drugs; Z79.899 Other long term (current) drug therapy; Z88.1 Allergy status to other antibiotic agents; Z88.8 Allergy status to other drugs, medicaments and biological substances; Z75.8 Other problems related to medical facilities and other health care; Z68.42 Body mass index [BMI] 45.0-49.9, adult
CPT/HCPCS: 36415; 71045; 80053; 85025; 87428; 96361; 96374; 99285; A9270; J2919; J7030

== ENCOUNTER 2024-10-07 19:02 | Emergency (ER) | payer MEDICAID, OTHER ==
[2024-10-07 19:54] VITALS: BP 137/80; PULSE 84
[2024-10-07] MEDS: Sulfamethoxazole/Trimethoprim 800-160 MG Tab PO ONE (20:06)
== END 2024-10-07 20:18 | disposition home or self-care (01) ==
LOC: MW.ED 19:02
DX: L73.9 Follicular disorder, unspecified (principal); E78.00 Pure hypercholesterolemia, unspecified; E66.9 Obesity, unspecified; E11.9 Type 2 diabetes mellitus without complications; Z88.8 Allergy status to other drugs, medicaments and biological substances; Z79.84 Long term (current) use of oral hypoglycemic drugs; Z79.890 Hormone replacement therapy; Z79.899 Other long term (current) drug therapy; Z90.49 Acquired absence of other specified parts of digestive tract; Z68.43 Body mass index [BMI] 50.0-59.9, adult
CPT/HCPCS: 99283; A9270; 99282